=== PATIENT | male | born 1950 | race Caucasian/White ===

== ENCOUNTER 2017-10-06 12:37 | Observation (INO) | payer OTHER ==
[~2017-10-06] VITALS: Ht 180.3 cm; Wt 134.6 kg
[~2017-10-06 12:37] MED LIST: AMB10 PO; BUPR-83 PO; CLX20 PO; ENOX40IN SQ; GLC500 PO; HYDR-4383 PO; INSDGI SC; INSUINJ17 SC; LISI-461 PO; MULTIVITAMIN/IRON PO; OXYC-57 PO; OXYSR20 PO; TERA1CAP63 PO
--- NOTE | 2017-10-06 13:23 | DIAGNOSTIC IMAGING REPORT ---
CHEST ONE VIEW PORTABLE CLINICAL HISTORY: Atypical chest pain COMPARISON STUDY: 09/03/2011. FINDINGS: The heart is at the upper limits of normal in size. There is no failure. Linear left basilar opacities likely represent subsegmental atelectatic change. There is no lobar consolidation. Hazy increased density lung bases is felt to be secondary to overlying chest wall soft tissue.[ IMPRESSION: 1. Linear left basilar opacities, likely representing subsegmental atelectasis Electronically signed by: Ugo Ibrahim M.D. 10/06/2017 1:22 PM Dictated Date/Time: 10/06/2017 1:21 PM
[2017-10-06 13:42] LABS: HEMATOCRIT 43.7 % (42-52); MEAN CELL VOLUME 92.6 fL (80-100); MEAN CORPUSCULAR HEMOGLOBIN 31.8 pg (25-34); MEAN CORPUSCULAR HGB CONC 34.3 g/dl (32-36); PLATELET COUNT 216 K/uL (130-400); RED BLOOD COUNT 4.72 M/uL (4.7-6.1); WHITE BLOOD COUNT 10.05 K/uL (4.8-10.8)
[2017-10-06 13:46] LABS: POINT OF CARE TROPONIN I < 0.030 ng/ml (0-0.045)
[2017-10-06 13:55] LABS: PROTHROMBIN TIME (PATIENT) 10.7 SECONDS (9.0-12.0)
[2017-10-06 14:05] LABS: CALCIUM 8.7 mg/dl (8.5-10.1); CREATININE 0.67 mg/dl (0.60-1.40)
[2017-10-06 14:10] LABS: CKMB/CK RATIO 1.7 (0-3.0)
[2017-10-06] MEDS ORDERED: METF-841 PO (14:22)
[2017-10-06] MEDS ORDERED: CLX40 PO (14:23)
[2017-10-06] MEDS ORDERED: OPTIRAY 320 IV PRN (14:45)
--- NOTE | 2017-10-06 14:54 | EMERGENCY ROOM VISIT NOTE ---
History Report prepared by Karla: Pancho Kirkpatrick Under the Supervision of: Dr. Tyler Almaraz M.D. First contact with patient: 13:03 Chief Complaint: CHEST PAIN Stated Complaint: CHEST PAIN History of Present Illness The patient is a 67 year old male who presents to the Emergency Room with complaints of constant chest pain that started this morning. He rates his pain as a 4/10 in severity and describes the sensation as sharp. The patient states that he reached down to put on his sweatpants, when he experienced chest pain that "brought me to my knees". He reports that two or three days ago his whole left arm ached for about 20 minutes then went away. The patient also reports that he has been short of breath. The patient states that he normally has mild chest pain, which admits he has been prescribed Nitroglycerin for. He admits to a history of Diabetes and broken ribs 5 years ago. The patient states that he was on blood thinners a while ago due to his history of blood clots in his legs. The patient denies a history of heart problems. He admits to drinking occasionally. The patient denies dyspnea, injury, abdominal pain, nausea, vomiting, syncope, blood or black stool, pain or swelling in legs, and falling. Source of History: patient Onset: last night Position: chest Symptom Intensity: 4/10 Quality: sharp Timing: constant Modifying Factors (Relieving): other (Nitro) Associated Symptoms: + SOB, No LOC, No nausea, No vomiting, No abdominal pain Review of Systems See HPI for pertinent positives & negatives. A total of 10 systems reviewed and were otherwise negative. Past Medical & Surgical Medical Problems: (1) Benign prostatic hypertrophy without outflow obstruction (2) Deep venous thrombosis of lower extremity (3) Depression (4) Gastroesophageal reflux disease (5) Localized, primary osteoarthritis of the lower leg (6) Morbid obesity (7) Peripheral vascular disease Old medical records were reviewed. Nurse's notes were reviewed and I agree with. Family History Patient reports no known family medical history. Social History Smoking Status: Never Smoker Alcohol Use: occasionally Drug Use: none Occupation Status: retired Current/Historical Medications Scheduled Citalopram (Citalopram Hydrobromide), 40 MG PO DAILY Finasteride (Proscar), 5 MG PO DAILY Fluoxetine (Prozac), 10 MG PO DAILY Gabapentin (Neurontin), 600 MG PO TID Insulin Glargine (Lantus), 45 UNITS SC QPM Metformin HCl (Metformin HCl ER), 1,000 MG PO BID Multivitamin (Multivitamin), 1 TAB PO DAILY Simvastatin (Zocor), 40 MG PO QPM Terazosin Hcl (Hytrin), 5 MG PO HS Trazodone Hcl (Trazodone), 50 MG PO HS Scheduled PRN Zolpidem Tartrate (Ambien), 10 MG PO HS PRN for Sleep Miscellaneous Medications Insulin Aspart (Novolog) Allergies Coded Allergies: No Known Allergies (Unverified , 10/06/17) Physical Exam Vital Signs Date Time Temp Pulse Resp B/P (MAP) Pulse Ox O2 Delivery O2 Flow Rate FiO2 10/06/17 15:26 68 18 146/75 95 10/06/17 13:37 97 Room Air 10/06/17 13:37 84 10/06/17 13:34 97 Room Air 10/06/17 13:34 84 18 148/97 97 Room Air 10/06/17 13:33 98 Room Air 10/06/17 12:41 36.7 86 20 177/85 94 Physical Exam General: Non-ill appearing older male in no acute distress. HEENT: Normal cephalic atraumatic. Pupils are equal round and reactive to light. Extraocular movements are intact. Oropharynx is pink with moist mucous membranes. No swelling of the mouth lips or tongue. Neck: Supple with a midline trachea. No meningeal signs or stiffness, no JVD or bruits. No Stridor. Chest: Clear to auscultation bilaterally. No wheezes or rhonchi. No increased work of breathing. Significantly tender to palpation on the left lateral anterior ribs. Heart: regular rate and rhythm. Abdomen: Soft nontender, nondistended without rebound guarding or rigidity. Extremities: No cyanosis clubbing or edema. No calf tenderness or assymetry Spine/Back. Non tender to palpation. No CVA tenderness Skin: Good turgor without rashes. Neurologic exam: Cranial nerves two through 12 are intact. Motor and sensation are intact and symmetrical throughout. Medical Decision & Procedures ER Provider Diagnostic Interpretation: Radiology results as stated below per my review and radiologist interpretation: CHEST ONE VIEW PORTABLE CLINICAL HISTORY: Atypical chest pain COMPARISON STUDY: 09/03/2011. FINDINGS: The heart is at the upper limits of normal in size. There is no failure. Linear left basilar opacities likely represent subsegmental atelectatic change. There is no lobar consolidation. Hazy increased density lung bases is felt to be secondary to overlying chest wall soft tissue.[ IMPRESSION: 1. Linear left basilar opacities, likely representing subsegmental atelectasis Electronically signed by: Ugo Ibrahim M.D. 10/06/2017 1:22 PM Dictated Date/Time: 10/06/2017 1:21 PM CHEST CTA for PULMONARY ARTERIES CT DOSE: 785.22 mGy.cm HISTORY: Left-sided chest pain. TECHNIQUE: Multiaxial CT images of the chest were performed following the intravenous administration of contrast to evaluate the pulmonary arteries. Maximal intensity projection images were also obtained. A dose lowering technique was utilized adhering to the principles of ALARA. COMPARISON STUDY: Chest 10/06/2017. FINDINGS: Normal caliber thoracic aorta with no evidence for dissection. The heart is normal in size. No pleural or pericardial effusions. No filling defects within the pulmonary arteries to suggest pulmonary embolus. No mediastinal or hilar lymphadenopathy. The the visualized liver, spleen, and adrenal glands are unremarkable. Multiple old nonunited left posterior rib fractures. No acute rib fractures. The central airways are patent. No pneumothorax. No focal lung consolidations to suggest pneumonia. IMPRESSION: 1. No evidence for pulmonary embolus. 2. Multiple old left-sided rib fractures. No acute rib fractures. Electronically signed by: Hima Razo M.D. 10/06/2017 3:45 PM Dictated Date/Time: 10/06/2017 3:36 PM Laboratory Results 10/06/17 13:20 10/06/17 13:20 Test 10/06/17 13:20 10/06/17 13:26 10/06/17 13:56 10/06/17 16:13 Red Blood Count 4.72 M/uL (4.7-6.1) Mean Corpuscular Volume 92.6 fL (80-100) Mean Corpuscular Hemoglobin 31.8 pg (25-34) Mean Corpuscular Hemoglobin Concent 34.3 g/dl (32-36) RDW Standard Deviation 45.2 fL (36.4-46.3) RDW Coefficient of Variation 13.3 % (11.5-14.5) Mean Platelet Volume 10.0 fL (7.4-10.4) Prothrombin Time 10.7 SECONDS (9.0-12.0) Prothromb Time International Ratio 1.0 (0.9-1.1) Activated Partial Thromboplast Time 25.1 SECONDS (21.0-31.0) Partial Thromboplastin Ratio 1.0 Anion Gap 3.0 mmol/L (3-11) Est Creatinine Clear Calc Drug Dose 143.0 ml/min Estimated GFR () 113.6 Estimated GFR (Non- 98.0 BUN/Creatinine Ratio 26.0 (10-20) Calcium Level 8.7 mg/dl (8.5-10.1) Total Bilirubin 0.5 mg/dl (0.2-1) Aspartate Amino Transf (AST/SGOT) 24 U/L (15-37) Alanine Aminotransferase (ALT/SGPT) 31 U/L (12-78) Alkaline Phosphatase 89 U/L (45-117) Total Creatine Kinase 178 U/L (39-308) Creatine Kinase MB 3.1 ng/ml (0.5-3.6) Creatine Kinase MB Ratio 1.7 (0-3.0) Total Protein 7.1 gm/dl (6.4-8.2) Albumin 3.5 gm/dl (3.4-5.0) Globulin 3.6 gm/dl (2.5-4.0) Albumin/Globulin Ratio 1.0 (0.9-2) Bedside D-Dimer > 450 ng/mlFEU (0-450) Bedside Glucose 86 mg/dl (70-99) Bedside Troponin I < 0.030 ng/ml (0-0.045) Laboratory studies as stated above per my review. ECG Indication: chest pain Rate (beats per minute): 85 Rhythm: normal sinus Findings: 1st degree AV block, other (non specific T wave abnormality) Comparison ECG Date: 07/08/12 Change: T wave flattening in V5 and V6 REPEAT EKG 10/06/17 Normal sinus rhythm with a rate of 64. Lateral T wave abnormality which is new compared to original EKG. ED Course 1304: Past medical records reviewed. The patient was evaluated in room B12A, and a complete history and physical examination were performed. 1438: I reevaluated the patient and he is doing well. He is heading over to CT. 1603: I reevaluated and updated him on his results. 165: I reevaluated the patient and he is resting comfortably. I updated him on his results and discussed his treatment plan. He agrees to the plan and will be further evaluated. 170: I discussed the patient's case with Dr. Arredondo, [facility] Hospitalist. He understands the patient's condition and agrees to accept the patient. The patient will be further evaluated. Medical Decision Differentials include, but are not limited to; acute coronary syndrome, pneumothorax, PE, CHF, and musculoskeletal. This patient comes in as described above. He was placed room B12. He is having left-sided chest pain off-and-on is worse when he bends over . He has had no trauma. On exam, he is exquisitely tender palpation in 1 focal area. He appears in no distress. EKG was obtained does not show any definite acute ischemic changes but there is definitely some T-wave flattening compared to the old EKG. I did repeat as second EKG at 3 hours and the T waves look inverted now however the patient is asymptomatic. His troponin was negative 2 with approximately three-hour window in between. Chest x-ray does not show any definite acute findings. He has no acute electrolyte or metabolic abnormalities. He is resting comfortably. His d-dimer was elevated and light of this, I did do a chest CT. There is no evidence of PE. Although the patient 's symptoms to point most likely to musculoskeletal, he does have some EKG changes compared to old and I do think he needs further cardiac evaluation and workup. I have consulted Dr. Arredondo to see the patient in the emergency department. The patient has taken aspirin at home prior to arrival. Medication Reconcilliation Current Medication List: was personally reviewed by me Blood Pressure Screening Patient's blood pressure: Elevated blood pressure Blood pressure disposition: Referred to PCP Consults Time Called: 1702 Consulting Physician: Dr. Arredondo [facility] Hospitalist Returned Call: 1702 I discussed the patient's case with Dr. Arredondo, [facility] Hospitalist. He understands the patient's condition and agrees to accept the patient. The patient will be further evaluated. Impression Primary Impression: Left sided chest pain Additional Impression: ECG abnormality Scribe Attestation The scribe's documentation has been prepared under my direction and personally reviewed by me in its entirety. I confirm that the note above accurately reflects all work, treatment, procedures, and medical decision making performed by me. Departure Information Dispostion Being Evaluated By Hospitalist Referrals Deanna Stewart M.D. (PCP) Patient Instructions [facility] Problem Qualifiers
--- NOTE | 2017-10-06 15:46 | DIAGNOSTIC IMAGING REPORT ---
CHEST CTA for PULMONARY ARTERIES CT DOSE: 785.22 mGy.cm HISTORY: Left-sided chest pain. TECHNIQUE: Multiaxial CT images of the chest were performed following the intravenous administration of contrast to evaluate the pulmonary arteries. Maximal intensity projection images were also obtained. A dose lowering technique was utilized adhering to the principles of ALARA. COMPARISON STUDY: Chest 10/06/2017. FINDINGS: Normal caliber thoracic aorta with no evidence for dissection. The heart is normal in size. No pleural or pericardial effusions. No filling defects within the pulmonary arteries to suggest pulmonary embolus. No mediastinal or hilar lymphadenopathy. The the visualized liver, spleen, and adrenal glands are unremarkable. Multiple old nonunited left posterior rib fractures. No acute rib fractures. The central airways are patent. No pneumothorax. No focal lung consolidations to suggest pneumonia. IMPRESSION: 1. No evidence for pulmonary embolus. 2. Multiple old left-sided rib fractures. No acute rib fractures. Electronically signed by: Hima Razo M.D. 10/06/2017 3:45 PM Dictated Date/Time: 10/06/2017 3:36 PM
[2017-10-06] MEDS ORDERED: ASPIRIN 81 MG CHEW PO STA (17:05)
[2017-10-06] MEDS ORDERED: ACETAMINOPHEN 325 MG TAB PO PRN (17:15)
[2017-10-06] MEDS ORDERED: NITROGLYCERIN 0.4 MG SL PER TAB CHARGE SL PRN (17:15)
[2017-10-06] MEDS ORDERED: MoRPHine SULFATE 2 MG/ML CARP IV PRN (17:15)
[2017-10-06] MEDS ORDERED: ONDANSETRON INJ 2 MG/ML 2 ML VIAL IV PRN (17:15)
[2017-10-06] MEDS ORDERED: ALUMINUM/MAGNESIUM/SIMETH (MAALOX MAX) 30 ML UDC PO PRN (17:15)
[2017-10-06] MEDS ORDERED: POLYETHYLENE (MIRALAX) 17 GM PACK PO PRN (17:15)
[2017-10-06] MEDS ORDERED: LORAZEPAM 0.5 MG TAB PO PRN (17:30)
[2017-10-06] MEDS ORDERED: ZOLPIDEM TARTRATE 10 MG TAB PO PRN (17:30)
[2017-10-06] MEDS ORDERED: OXYCODONE HCL IR 5 MG TAB (IMMEDIATE RELEASE) PO PRN (17:30)
[2017-10-06 17:38] VITALS: O2SAT 94
--- NOTE | 2017-10-06 17:44 | History and Physical ---
History & Physical Date & Time of Service: Oct 06, 2017 at 17:32 Chief Complaint: Chest Pain Primary Care Physician: No Doctor, Assigned History of Present Illness 67-year-old obese diabetic male with his last name griffin najera, who presents with sharp left-sided chest pain since this morning. This pain has been persistent it is positional it is reproducible it is pleuritic. The confounding variable is the patient's had 2 EKGs in the ER the first with flattened lateral T waves and then the second hours later with T-wave inversions laterally. The patient has no known coronary disease but did have a stress test recently in the [facility] system more than a year ago which was negative. He has a history of DVT in the past and elevated d-dimer prompted a CT angiogram which did not show any pulmonary embolism or pleural/pericardial effusion, pulmonary parenchymal irritation or rib fractures. Most recently the patient has lost 33 pounds reduce his hemoglobin A1c from 10.5 -8.3 Given the fact he is diabetic with dynamic EKG changes, although his chest pain seems musculoskeletal, he'll be kept for observation and cardiology opinion Past Medical/Surgical History Medical Problems: (1) Benign prostatic hypertrophy without outflow obstruction Status: Chronic (2) Deep venous thrombosis of lower extremity Status: Resolved (3) Depression Status: Chronic (4) Gastroesophageal reflux disease Status: Chronic (5) Localized, primary osteoarthritis of the lower leg Status: Chronic (6) Morbid obesity Status: Chronic (7) Peripheral vascular disease Status: Chronic Family History Patient reports no known family medical history. Social History Smoking Status: Never Smoker Drug Use: none Occupational Status: retired Immunizations History of Influenza Vaccine: Yes History of Tetanus Vaccine?: Yes History of Pneumococcal: Yes History of Hepatitis B Vaccine: No Allergies Coded Allergies: No Known Allergies (Unverified , 10/06/17) Home Medications Scheduled Citalopram (Citalopram Hydrobromide), 40 MG PO DAILY Finasteride (Proscar), 5 MG PO DAILY Fluoxetine (Prozac), 10 MG PO DAILY Gabapentin (Neurontin), 600 MG PO TID Insulin Glargine (Lantus), 45 UNITS SC QPM Metformin HCl (Metformin HCl ER), 1,000 MG PO BID Multivitamin (Multivitamin), 1 TAB PO DAILY Simvastatin (Zocor), 40 MG PO QPM Terazosin Hcl (Hytrin), 5 MG PO HS Trazodone Hcl (Trazodone), 50 MG PO HS Scheduled PRN Zolpidem Tartrate (Ambien), 10 MG PO HS PRN for Sleep Miscellaneous Medications Insulin Aspart (Novolog) Review of Systems ROS: well nourished well developed is obese with a BMI of 40 this limits his functional ability No double vision blurry vision No problems with speech or swallowing No palpitations, sharp chest pain but no chest pressure No Wheezing or breathing issues however pain is pleuritic No abdominal pain nausea vomiting diarrhea changes in appetite or weight No burning urine urine frequency or changes in color and marked nocturia and difficulty urinating at night No focal joint pain or muscle pain, significant neuropathic pain to his 8 No skin rashes or oral lesions No unusual bruising or bleeding No focused back pain or numbness or loss of strength No changes in memory or confusion Physical Exam Vital Signs Date Time Temp Pulse Resp B/P (MAP) Pulse Ox O2 Delivery O2 Flow Rate FiO2 10/06/17 15:26 68 18 146/75 95 10/06/17 13:37 97 Room Air 10/06/17 13:37 84 10/06/17 13:34 97 Room Air 10/06/17 13:34 84 18 148/97 97 Room Air 10/06/17 13:33 98 Room Air 10/06/17 12:41 36.7 86 20 177/85 94 General Appearance: WD/WN, + mild distress Head: normocephalic, atraumatic Eyes: PERRL, EOMI Neck: supple, no JVD Respiratory/Chest: chest non-tender, lungs clear, normal breath sounds, no accessory muscle use, + pertinent finding (pain to his left anterior chest and deep inspiration just below the fold of his breast) Cardiovascular: regular rate, rhythm, no murmur Abdomen/GI: normal bowel sounds, non tender, no organomegaly Extremities/Musculoskelatal: no pedal edema, normal range of motion, + pertinent finding (neuropathy to his feet) Neurologic/Psych: alert, oriented x 3 Skin: normal color, warm/dry, no rash, + pertinent finding (skin exam does not show any signs of shingles) Diagnostics Laboratory Results Results Past 24 Hours Test 10/06/17 13:20 10/06/17 13:26 10/06/17 13:56 10/06/17 16:13 Range/Units White Blood Count 10.05 4.8-10.8 K/uL Red Blood Count 4.72 4.7-6.1 M/uL Hemoglobin 15.0 14.0-18.0 g/dL Hematocrit 43.7 42-52 % Mean Corpuscular Volume 92.6 80-100 fL Mean Corpuscular Hemoglobin 31.8 25-34 pg Mean Corpuscular Hemoglobin Concent 34.3 32-36 g/dl RDW Standard Deviation 45.2 36.4-46.3 fL RDW Coefficient of Variation 13.3 11.5-14.5 % Platelet Count 216 130-400 K/uL Mean Platelet Volume 10.0 7.4-10.4 fL Prothrombin Time 10.7 9.0-12.0 SECONDS Prothromb Time International Ratio 1.0 0.9-1.1 Activated Partial Thromboplast Time 25.1 21.0-31.0 SECONDS Partial Thromboplastin Ratio 1.0 Sodium Level 139 136-145 mmol/L Potassium Level 4.0 3.5-5.1 mmol/L Chloride Level 104 98-107 mmol/L Carbon Dioxide Level 32 21-32 mmol/L Anion Gap 3.0 3-11 mmol/L Blood Urea Nitrogen 17 7-18 mg/dl Creatinine 0.67 0.60-1.40 mg/dl Est Creatinine Clear Calc Drug Dose 143.0 ml/min Estimated GFR () 113.6 Estimated GFR (Non- 98.0 BUN/Creatinine Ratio 26.0 10-20 Random Glucose 83 70-99 mg/dl Calcium Level 8.7 8.5-10.1 mg/dl Total Bilirubin 0.5 0.2-1 mg/dl Aspartate Amino Transf (AST/SGOT) 24 15-37 U/L Alanine Aminotransferase (ALT/SGPT) 31 12-78 U/L Alkaline Phosphatase 89 45-117 U/L Total Creatine Kinase 178 39-308 U/L Creatine Kinase MB 3.1 0.5-3.6 ng/ml Creatine Kinase MB Ratio 1.7 0-3.0 Total Protein 7.1 6.4-8.2 gm/dl Albumin 3.5 3.4-5.0 gm/dl Globulin 3.6 2.5-4.0 gm/dl Albumin/Globulin Ratio 1.0 0.9-2 Bedside D-Dimer > 450 0-450 ng/mlFEU Bedside Troponin I < 0.030 < 0.030 0-0.045 ng/ml Bedside Glucose 86 70-99 mg/dl Diagnostic Radiology Normal troponin is noted CT angiogram negative for PEs or other intrathoracic abnormalities CXR normal other (sinus rhythm with lateral T-wave inversions) Impression Assessment and Plan 67-year-old diabetic male here with what appears to be mechanical chest pain however having abnormal EKG This patient has risk factors of diabetes dyslipidemia distant smoking use and now an abnormal EKG. The patient will be kept in our facility for severe troponins echocardiogram and cardiac evaluation will attempt to get his stress test from in the last year or 2 at the [facility] system sent to our facility he 'll be given aspirin daily. Diabetes, patient of one half of usual Lantus dose this evening and continue with sliding scale this is as he is nothing by mouth in the morning except meds for possible stress test. The patient will have his metformin held due to the CT angiogram His depression and insomnia the patient continue Prozac trazodone and Ambien BPH he'll continue Hytrin and Proscar [facility] to see a urologist DVD preventions is heparin VTE Prophylaxis VTE Risk Assessment Done? Y/N: Yes Risk Level: Moderate
[2017-10-06 18:20] VITALS: BP 138/81; TEMP 36.4; BMI 40.0
[2017-10-06 18:30] VITALS: BP 138/81; PULSE 62; TEMP 36.4; O2SAT 91
[2017-10-06] MEDS ORDERED: IV FLUIDS COMPLETED PRN (18:30)
[2017-10-06] MEDS ORDERED: GLUCOSE 40% GEL 15 GM TUBE PO PRN (18:45)
[2017-10-06] MEDS ORDERED: GLUCOSE 10 TABS/TUBE PO PRN (18:45)
[2017-10-06] MEDS ORDERED: GLUCAGON FOR INJ 1 MG VIAL SQ PRN (18:45)
[2017-10-06] MEDS ORDERED: DEXTROSE 50% 50 ML SYR IV PRN (18:45)
[2017-10-06 19:11] VITALS: BP 147/86; PULSE 67; TEMP 36.5; O2SAT 95
[2017-10-06] MEDS: GABAPENTIN 600 MG TAB PO SCH (20:28)
[2017-10-06] MEDS: INSULIN ASPART 100 UNITS/ML 3 ML PEN SC SCH (20:38)
[2017-10-06] MEDS: HEPARIN SOD 5000 UNIT/0.5 ML CARP SQ SCH (20:39)
[2017-10-06] MEDS ORDERED: TRAZODONE HCL 50 MG TAB PO SCH (21:00)
[2017-10-06] MEDS ORDERED: INSULIN GLARGINE SOLOSTAR 100 UNITS/ML 3 ML PEN SC SCH ×2 (21:00)
[2017-10-06] MEDS ORDERED: SIMVASTATIN 40 MG TAB PO SCH (21:00)
[2017-10-06 23:50] VITALS: BP 113/70; PULSE 75; TEMP 36.8; O2SAT 92
[2017-10-07 05:02] VITALS: BP 141/72; PULSE 60; TEMP 36.6; O2SAT 94
[2017-10-07 07:23] LABS: MEAN CORPUSCULAR HEMOGLOBIN 31.5 pg (25-34); MEAN CORPUSCULAR HGB CONC 33.9 g/dl (32-36); MEAN PLATELET VOLUME 10.1 fL (7.4-10.4); PLATELET COUNT 193 K/uL (130-400); RED BLOOD COUNT 4.41 M/uL (4.7-6.1); WHITE BLOOD COUNT 6.77 K/uL (4.8-10.8)
[2017-10-07 07:39] VITALS: BP 136/70; PULSE 83; TEMP 36.3; O2SAT 92
[2017-10-07 07:45] LABS: BUN/CREATININE RATIO 19.2 (10-20); CALCIUM 8.7 mg/dl (8.5-10.1); CREATININE 0.74 mg/dl (0.60-1.40); POTASSIUM 3.8 mmol/L (3.5-5.1)
[2017-10-07] MEDS: INSULIN ASPART 100 UNITS/ML 3 ML PEN SC SCH ×3 (07:55→12:12)
[2017-10-07] MEDS: HEPARIN SOD 5000 UNIT/0.5 ML CARP SQ SCH (07:56)
[2017-10-07] MEDS: GABAPENTIN 600 MG TAB PO SCH ×2 (07:57→14:15)
[2017-10-07 08:43] LABS: ESTIMATED AVERAGE GLUCOSE 203 mg/dl; HA1C FLAG Normal (Normal)
[2017-10-07] MEDS ORDERED: CITALOPRAM 40 MG TAB PO SCH (09:00)
[2017-10-07] MEDS ORDERED: MULTIVITAMIN TAB PO SCH (09:00)
[2017-10-07] MEDS ORDERED: FINASTERIDE 5 MG TAB PO SCH (09:00)
[2017-10-07] MEDS ORDERED: FLUOXETINE HCL 10 MG CAP PO SCH (09:00)
[2017-10-07] MEDS ORDERED: ASPIRIN 325 MG ECTAB PO SCH (09:00)
--- NOTE | 2017-10-07 09:02 | Cardiology Consultation ---
Cardiology Consultation Date of Consultation: Oct 07, 2017. Requesting Physician: Dr. Moraes Reason for Consultation: Chest pain, abnormal ECG Pt evaluation today including: conversation w/ patient, physical exam, lab review, review of studies, review of inpatient medication list, conversation w/ attending History of Present Illness This is a very pleasant 67-year-old gentleman who has a history of diabetes mellitus, and a long history of chest discomfort. By his history his chest discomfort has been evaluated in the past and has been present for many years. He described having a DVT for which he was on anticoagulation a number of years ago, but he does not recall having a pulmonary embolism. He also had a fall in a bathtub perhaps 4 or 5 years ago where he fractured 5 ribs on his left side and has had discomfort there which he relates to that. He presented here yesterday however with worsening of his chest discomfort. He describes a severe left sided chest discomfort which brought him to his knees, it was however preceded by about 2 days of intermittent chest discomfort. The discomfort is a sharp stabbing pain similar to what he experienced when he fractured his ribs. It only lasts a few seconds and then recurs sometime later. He has not had continuous chest discomfort. It is not exertional, however he does feel that with that he is little bit short of breath. Although I don't have records it sounds as though he had a catheterization 2-3 years ago, he was having chest discomfort and was sent to the [facility] in [place]. He recalls being told he had a shadow on his heart (which is sometimes a description for an abnormal stress test with imaging) and he recalls having a tube put up through his groin into his heart and I injected in his heart. He was told that everything was 100%, by which he interpreted he had no abnormality. He doesn't know specifics however. He is a smoker, his father had a heart attack as he recalls at age 83. Today he did not have any chest discomfort, however at the end of my interview with him and he reported he may have a little discomfort. Evaluation here has included a chest CT scan which is negative for pulmonary embolism, as well as serial cardiac enzymes which are negative for injury. His electrocardiogram however is a little bit abnormal, on admission he had some T wave flattening, by yesterday afternoon he had inferolateral T-wave inversion and this morning the changes are little bit less pronounced. A prior electrocardiogram 07/08/2012 did show inferolateral abnormalities but were less pronounced. Past Medical/Surgical History (1) Benign prostatic hypertrophy without outflow obstruction (2) Deep venous thrombosis of lower extremity (3) Depression (4) Gastroesophageal reflux disease (5) Morbid obesity Family History Patient reports no known family medical history. Social History Smoking Status: Current Every Day Smoker History of Alcohol Use: No Review of Systems Constitutional: No fever, No weight loss, No weakness Respiratory: No cough, No wheezing, No shortness of breath, No dyspnea on exertion Cardiac: + see HPI, + chest pain, No orthopnea, No PND, No edema, No palpitations Abdomen: No pain, No nausea, No vomiting, No diarrhea, No GI bleeding Male : No urinary frequency, No nocturia more than once/night, No slowing stream, No sexual dysfunction Neurologic: No paralysis, No weakness, No numbness/tingling, No balance problems Heme: No abnormal bleeding/bruising, No clotting problems Endo: No fatigue Skin: No problem reported All Other Systems: Reviewed and Negative Allergies Coded Allergies: No Known Allergies (Unverified , 10/06/17) Medications Current Inpatient Medications Medications (Trade) Dose Ordered Sig/Jimbo Route Start Time Stop Time Status Last Admin Dose Admin Ioversol (Optiray 320) 100 ml UD PRN IV 10/06/17 14:45 10/10/17 14:44 Finasteride (Proscar Tab) 5 mg DAILY PO 10/07/17 09:00 11/06/17 08:59 10/07/17 07:57 5 MG Fluoxetine HCl (Prozac Cap) 10 mg DAILY PO 10/07/17 09:00 11/06/17 08:59 10/07/17 07:57 10 MG Gabapentin (Neurontin Tab) 600 mg TID PO 10/06/17 21:00 11/05/17 20:59 10/07/17 07:57 600 MG Multivitamins (Multivitamin Tab) 1 tab DAILY PO 10/07/17 09:00 11/06/17 08:59 10/07/17 07:57 1 TAB Simvastatin (Zocor Tab) 40 mg QPM PO 10/06/17 21:00 11/05/17 20:59 10/06/17 20:27 40 MG Terazosin HCl (Hytrin Cap) 5 mg HS PO 10/06/17 21:00 11/05/17 20:59 10/06/17 20:27 5 MG Trazodone HCl (Desyrel Tab) 50 mg HS PO 10/06/17 21:00 11/05/17 20:59 10/06/17 20:27 50 MG Aspirin (Ecotrin Tab) 325 mg QAM PO 10/07/17 09:00 11/06/17 08:59 10/07/17 07:57 325 MG Insulin Glargine (Lantus Solostar Pen) 45 units QPM SC 10/07/17 21:00 11/05/17 20:59 Heparin Sodium (Porcine) (Heparin Sq 5000 Unit/0.5ml) 5,000 unit Q12 SQ 10/06/17 21:00 11/05/17 20:59 Acetaminophen (Tylenol Tab) 650 mg Q4H PRN PO 10/06/17 17:15 11/05/17 17:14 Al Hydrox/Mg Hydrox/Simethicone (Maalox Max Susp) 15 ml Q4H PRN PO 10/06/17 17:15 11/05/17 17:14 Ondansetron HCl (Zofran Inj) 4 mg Q6H PRN IV 10/06/17 17:15 11/05/17 17:14 Nitroglycerin (Nitrostat Tab) 0.4 mg UD PRN SL 10/06/17 17:15 11/05/17 17:14 Morphine Sulfate (MoRPHine SULFATE INJ) 2 mg Q30M PRN IV 10/06/17 17:15 10/20/17 17:14 Polyethylene (Miralax Powder Packet) 17 gm DAILY PRN PO 10/06/17 17:15 11/05/17 17:14 Insulin Aspart (novoLOG ASPART) SLIDING SCALE PARAMETER ACHS SC 10/06/17 21:00 11/05/17 20:59 Zolpidem Tartrate (Ambien Tab) 10 mg HS PRN PO 10/06/17 17:30 11/05/17 17:29 10/06/17 23:22 10 MG Lorazepam (Ativan Tab) 0.5 mg Q6H PRN PO 10/06/17 17:30 11/05/17 17:29 Oxycodone HCl (Roxicodone Immediate Rel Tab) 10 mg Q6H PRN PO 10/06/17 17:30 10/20/17 17:29 10/06/17 18:53 10 MG Miscellaneous (Iv Fluids Completed) 1 ea PRN PRN N/A 10/06/17 18:30 10/06/18 18:29 Glucose (Glucose 40% Gel) 15-30 GRAMS 15 GRAMS... UD PRN PO 10/06/17 18:45 11/05/17 18:44 Glucose (Glucose Chew Tab) 4-8 Tablets 4 Tabl... UD PRN PO 10/06/17 18:45 11/05/17 18:44 Dextrose (Dextrose 50% 50ML Syringe) 25-50ML OF 50% DW IV FOR... UD PRN IV 10/06/17 18:45 11/05/17 18:44 Glucagon (Glucagon Inj) 1 mg UD PRN SQ 10/06/17 18:45 11/05/17 18:44 Physical Exam Vital Signs Past 12 Hours Date Time Temp Pulse Resp B/P (MAP) Pulse Ox O2 Delivery O2 Flow Rate FiO2 10/07/17 07:45 Room Air 10/07/17 07:39 36.3 83 18 136/70 (92) 92 Room Air 10/07/17 05:02 36.6 60 16 141/72 (95) 94 Nasal Cannula 10/07/17 04:00 Room Air 10/07/17 00:00 Room Air 10/06/17 23:50 36.8 75 18 113/70 (84) 92 Room Air Constitutional: General Apperance: overweight Level of Distress: NAD Psychiatric: Mental Status: active & alert Head: normocephalic Eyes: EOM: EOMI ENMT: normal ENT inspection, hearing grossly normal Neck: supple, no masses Lungs: Respiratory effort: no dyspnea, good air movement Auscultation: breath sounds normal, no wheezing Cardiovascular: Heart Auscultation: RRR, no murmurs, no rubs, no gallops Peripheral Pulses: Bruits: none appreciated Abdomen: Bowel Sounds: normal Inspection & Palpation: soft, no tenderness, guarding & rebound, no masses Musculoskeletal: normal strength (5/5 throughout) Extremities: edema (trace bilateral peripheral edema) Neurologic: Cranial Nerves: grossly intact Sensation: grossly intact Data Laboratory Results: Last 24 Hours Test 10/06/17 13:20 10/06/17 13:26 10/06/17 13:56 10/06/17 16:13 White Blood Count 10.05 K/uL Red Blood Count 4.72 M/uL Hemoglobin 15.0 g/dL Hematocrit 43.7 % Mean Corpuscular Volume 92.6 fL Mean Corpuscular Hemoglobin 31.8 pg Mean Corpuscular Hemoglobin Concent 34.3 g/dl RDW Standard Deviation 45.2 fL RDW Coefficient of Variation 13.3 % Platelet Count 216 K/uL Mean Platelet Volume 10.0 fL Prothrombin Time 10.7 SECONDS Prothromb Time International Ratio 1.0 Activated Partial Thromboplast Time 25.1 SECONDS Partial Thromboplastin Ratio 1.0 Sodium Level 139 mmol/L Potassium Level 4.0 mmol/L Chloride Level 104 mmol/L Carbon Dioxide Level 32 mmol/L Anion Gap 3.0 mmol/L Blood Urea Nitrogen 17 mg/dl Creatinine 0.67 mg/dl Est Creatinine Clear Calc Drug Dose 143.0 ml/min Estimated GFR () 113.6 Estimated GFR (Non- 98.0 BUN/Creatinine Ratio 26.0 Random Glucose 83 mg/dl Estimated Average Glucose 203 mg/dl Hemoglobin A1c 8.7 % Calcium Level 8.7 mg/dl Total Bilirubin 0.5 mg/dl Aspartate Amino Transf (AST/SGOT) 24 U/L Alanine Aminotransferase (ALT/SGPT) 31 U/L Alkaline Phosphatase 89 U/L Total Creatine Kinase 178 U/L Creatine Kinase MB 3.1 ng/ml Creatine Kinase MB Ratio 1.7 Total Protein 7.1 gm/dl Albumin 3.5 gm/dl Globulin 3.6 gm/dl Albumin/Globulin Ratio 1.0 Bedside D-Dimer > 450 ng/mlFEU Bedside Troponin I < 0.030 ng/ml < 0.030 ng/ml Bedside Glucose 86 mg/dl Test 10/06/17 20:35 10/06/17 23:00 10/07/17 07:08 10/07/17 07:22 Bedside Glucose 157 mg/dl 114 mg/dl Troponin I < 0.015 ng/ml < 0.015 ng/ml White Blood Count 6.77 K/uL Red Blood Count 4.41 M/uL Hemoglobin 13.9 g/dL Hematocrit 41.0 % Mean Corpuscular Volume 93.0 fL Mean Corpuscular Hemoglobin 31.5 pg Mean Corpuscular Hemoglobin Concent 33.9 g/dl RDW Standard Deviation 44.2 fL RDW Coefficient of Variation 13.1 % Platelet Count 193 K/uL Mean Platelet Volume 10.1 fL Sodium Level 140 mmol/L Potassium Level 3.8 mmol/L Chloride Level 102 mmol/L Carbon Dioxide Level 33 mmol/L Anion Gap 6.0 mmol/L Blood Urea Nitrogen 14 mg/dl Creatinine 0.74 mg/dl Est Creatinine Clear Calc Drug Dose 131.9 ml/min Estimated GFR () 109.1 Estimated GFR (Non- 94.1 BUN/Creatinine Ratio 19.2 Random Glucose 113 mg/dl Calcium Level 8.7 mg/dl Magnesium Level 2.0 mg/dl Imaging: CT scan is negative for pulmonary embolism on admission, chest x-ray is unremarkable EKG: His initial electrocardiogram on 10/06/2017 at 12:41 PM shows sinus rhythm with a leftward axis, inferolateral T-wave flattening. A subsequent electrocardiogram at 1606 on the same day shows sinus rhythm with left anterior fascicular block and inferolateral T-wave inversion. Another electrocardiogram done this morning at 7:00 shows sinus rhythm with first-degree AV block, left axis deviation and inferolateral T abnormalities which are somewhat improved compared to yesterday. Telemetry reviewed: Sinus rhythm with first-degree AV block, no significant arrhythmia Assessment & Plan #1. Chest discomfort: I think it is unlikely that his discomfort represents ischemic heart disease. The description is very atypical for angina, he has had it for a long time and although it is intermittent he has had negative cardiac enzymes. He also had a possible catheterization several years ago (for which I don't have records) which he believes was clear of coronary artery disease. He does however have risk factors for coronary artery disease and he does have the electrocardiographic abnormalities and therefore I think we should not ignore this. I am going to schedule a stress echo, he believes he can walk on a treadmill. #2. Abnormal electrocardiogram: He does have worse T-wave abnormalities compared to prior electrocardiograms (although in June 2012 he did have inferolateral T-wave abnormalities but less pronounced), although the abnormalities are nonspecific they are worrisome and they are changing somewhat during this admission. He does not have pulmonary embolism based on CT scan this admission. He could have a cardiomyopathy or myocarditis, cardiomyopathy we can tell from echocardiography, a myocarditis may be more difficult but his symptoms are not classic for that. If his echocardiogram and a stress test are negative I would probably not pursue these T-wave abnormalities any further. Thank you for allowing me to participate in his care.
[2017-10-07] MEDS ORDERED: PERFLUTREN LIPID MICROSPHERE (DEFINITY) IV ONE (09:51)
[2017-10-07 11:51] VITALS: BP 156/88; PULSE 96; TEMP 36.4; O2SAT 91
[2017-10-07 14:55] VITALS: Ht 180.3 cm; Wt 134.6 kg
[2017-10-07 15:01] VITALS: BP 149/77; PULSE 91; TEMP 36.9; O2SAT 92
[2017-10-07] MEDS ORDERED: NPR500 PO (15:12)
[2017-10-07] MEDS ORDERED: ASPEC81 PO (15:12)
--- NOTE | 2017-10-07 15:17 | Discharge Instructions ---
Discharge Instructions Date of Service Oct 07, 2017. Admission Reason for Admission: Left Sided Chest Pain Discharge Discharge Diagnosis / Problem: left sided chest pain - stress test normal, likely muscle pain Discharge Goals Goal(s): Learn about illness, Diagnostic testing, Therapeutic intervention Activity Recommendations Activity Limitations: as noted below May resume normal activities as long as they don't make your left chest wall pain worse (examples - heavy lifting with the left arm, etc). . Instructions / Follow-Up Instructions / Follow-Up From Dr. Roberts - * your stress test was NORMAL * this means that we have a LOW suspicion that your chest pain was due to a heart problem * it is suspected your chest pain is due to muscle pain on the chest wall * this is best treated with anti-inflammatory pills * please take naprosyn 500mg twice daily for 7 days; take with food * this may also help your neck pain * stop the naprosyn after 7 days * do NOT take any other [id number] motrin, alleve, etc while on the naprosyn * once the naprosyn course is complete please start on a baby aspirin 81mg daily and take every day for prevention of heart disease * you will need a repeat blood test on Saturday, 10/08 or Saturday, 10/09 * if this blood test is normal you will be able to resume your metformin at that time * please HOLD the metformin until you have this blood test done * see your family doctor in 1 week for a follow-up visit Current Hospital Diet Patient's current hospital diet: Diabetes Type 2 Diet Discharge Diet Recommended Diet: Diabetes Type 2 Diet Procedures Procedures Performed: CAT scan of the lungs - no evidence of blood clots or pneumonia. Pending Studies Studies pending at discharge: no Laboratory Results Hemoglobin A1c Test 10/06/17 13:20 Range/Units Estimated Average Glucose 203 mg/dl Hemoglobin A1c 8.7 H 4.5-5.6 % Medical Emergencies . Who to Call and When: Medical Emergencies: If at any time you feel your situation is an emergency, please call 911 immediately. . Non-Emergent Contact Non-Emergency issues call your: Primary Care Provider Call Non-Emergent contact if: temperature is above 100.5, your pain is not controlled, your pain is worsening, your pain is unusual for you, your pain is concerning you, you have any medication questions . . "Provider Documentation" section prepared by Jeb Roberts. . VTE Core Measure Inpt VTE Proph given/why not?: Unfractionated heparin SQ
[2017-10-07 15:19] VITALS: BP 149/77; PULSE 91; TEMP 36.9; O2SAT 92
--- NOTE | 2017-10-07 16:31 | EXERCISE STRESS ECHO ---
*NOTICE TO RECEIVING LIBERTARIAN AGENCY This information is strictly Confidential and protected under [place] law. [place] law prohibits you from making any further disclosure of this information unless further disclosure is expressly permitted by the written consent of the person to whom it pertains or is authorized by law. A general authorization for the release of medical or other information is not sufficient for this purpose. Hospital accepts no responsibility if the information is made available to any other person, INCLUDING THE PATIENT. Interpretation Summary * Name: SUSANNE RODRIGUEZ Study Date: 10/07/2017 08:46 AM BP: 92/58 mmHg * Patient Location: [facility]\S\N283\[id number]\1 HR: 87 * : 1950 (M/d/yy) Gender: Male Height: 70 in * Age: 67 yrs Ethnicity: [place] Weight: 296 lb * Ordering Physician: Hernando Pastor * Referring Physician: Self, Referred * Performed By: Sheryl Hamilton RDCS * * Reason For Study: CHEST PAIN * BSA: 2.5 m2 * -- Conclusions -- * - Technically difficult study - * 1. Exercise stress echo negative for high risk ischemia. * 2. Inferior hypokinesis present on rest and stress images. * 3. No exercise induced ECG changes. Reduced functional capacity. Exercised 2:21 min, achieving 4.6 METS and 86% MPHR. * 4. Exercise induced shortness of breath but no chest pain. Normal hemodynamic response to exercise. * 5. Resting LVEF 50-55%. Mildly dilated RV, normal RV function. Grade I diastolic dysfunction. No significant valvular pathology. * 6. No prior studies for comparison. Procedure Details * ECHOEX, CPT #65454 * A contrast injection of Definity was performed to improve assessment of LV function. * Contrast was injected into an intravenous site in the right arm. * One vial of Definity ultrasound contrast was diluted in normal saline to a total volume of 10 ml. A total of '4' ml of solution was administered during imaging. * Lot # [id number] of Definity utilized for procedure. * Expiration date NOV 04. * The attending nurse who injected the contrast agent was HEBERT ABARCA RN. Left Ventricle * The left ventricle is grossly normal size. * There is normal left ventricular wall thickness. * Ejection Fraction = 50-55%. * There is severe inferior wall hypokinesis. * The left ventricular ejection fraction increases normally with stress. The left ventricular end-systolic cavity size reduces post-stress (normal response). The left ventricular wall motion with stress is normal. Right Ventricle * The right ventricle is mildly dilated. * The right ventricular systolic function is normal as assessed by tricuspid annular plane systolic excursion (TAPSE) (normal >1.5 cm). Atria * Borderline left atrial enlargement. * The right atrium is mildly dilated. * No ASD detected; PFO is not assessed. Mitral Valve * The mitral valve is grossly normal. * There is no mitral valve stenosis. * Significant mitral regurgitation is absent. Tricuspid Valve * Significant tricuspid regurgitation is absent. Aortic Valve * The aortic valve is not well visualized. * The aortic valve is trileaflet. * No hemodynamically significant valvular aortic stenosis. * There is no significant aortic regurgitation. Pulmonic Valve * The pulmonary valve is inadequately visualized, but the Doppler data is adequate for interpretation. * There is no significant pulmonary regurgitation. Great Vessels * The aortic root and proximal ascending aorta are normal sized. Pericardium * There is no pericardial effusion. Stress Parameters * Sinus rhythm, non-specific ST changes. Poor R wave progression. * Arrhythmia noted in recovery: occasional PVC's. * Stress ECG: No ST changes. No arrhythmias. * Rest heart rate was '87' BPM. * Rest blood pressure was '92/58' * Maximum heart rate achieved was 130 bpm. * Maximum heart rate was 86 % of maximum age-predicted heart rate. * Maximum blood pressure was '173/66' * Total exercise time was '2:21' * Maximum exercise MET level achieved was '4.60' METS * Maximum treadmill speed was '1.70' miles per hour. * Maximum treadmill elevation was '10.00'% grade. * Exercise was terminated due to 'FATIGUE' Left Ventricular Findings with Stress * The study was technically difficult with many images being suboptimal in quality. MMode 2D Measurements and Calculations Ao root diam 4.0 cm Ao root area 12.5 cm\S\2 LVAd ap4 39.0 cm\S\2 LVLd ap4 9.0 cm EDV(MOD-sp4) 140.5 ml EDV(sp4-el) 143.5 ml LVAs ap4 26.1 cm\S\2 LVLs ap4 8.1 cm ESV(MOD-sp4) 76.7 ml ESV(sp4-el) 71.5 ml EF(MOD-sp4) 45.4 % EF(sp4-el) 50.2 % LVAd ap2 34.3 cm\S\2 LVLd ap2 9.0 cm EDV(MOD-sp2) 117.8 ml EDV(sp2-el) 111.1 ml LVAs ap2 23.2 cm\S\2 LVLs ap2 8.1 cm ESV(MOD-sp2) 63.2 ml ESV(sp2-el) 56.5 ml EF(MOD-sp2) 46.3 % EF(sp2-el) 49.1 % LVLd %diff -0.04 % EDV(MOD-bp) 128.2 ml LVLs %diff 0.17 % ESV(MOD-bp) 70.4 ml EF(MOD-bp) 45.1 % SV(MOD-sp4) 63.8 ml SI(MOD-sp4) 25.9 ml/m\S\2 SV(MOD-sp2) 54.6 ml SI(MOD-sp2) 22.1 ml/m\S\2 SV(MOD-bp) 57.8 ml SI(MOD-bp) 23.4 ml/m\S\2 SV(sp4-el) 72.0 ml SI(sp4-el) 29.2 ml/m\S\2 SV(sp2-el) 54.6 ml SI(sp2-el) 22.1 ml/m\S\2 Doppler Measurements and Calculations Ao V2 max 107.6 cm/sec Ao max PG 4.6 mmHg Ao max PG (full) 2.4 mmHg LV V1 max PG 2.2 mmHg LV V1 max 74.7 cm/sec
[2017-10-07] MEDS ORDERED: INSULIN GLARGINE SOLOSTAR 100 UNITS/ML 3 ML PEN SC SCH (21:00)
--- NOTE | 2017-10-07 23:34 | Discharge Summary ---
Discharge Summary Date of Service Oct 07, 2017. Discharge Summary Admission Date: Oct 06, 2017 at 17:13 Discharge Date: Oct 07, 2017 Discharge Disposition: Home Principal Diagnosis: chest pain, likely musculoskeletal in nature Problems/Secondary Diagnoses: 1. T2DM 2. hyperlipidemia 3. BPH 4. h/o DVT 5. cervical spine pain 6. morbidly obese - BMI 41 Immunizations: Have You Had Influenza Vaccine: Yes History of Tetanus Vaccine?: Yes History of Pneumococcal: Yes History of Hepatitis B Vaccine: No Procedures: 1. CTA chest: IMPRESSION: 1. No evidence for pulmonary embolus. 2. Multiple old left-sided rib fractures. No acute rib fractures. 3. No infiltrates. 2. stress echocardiogram: - Technically difficult study - * 1. Exercise stress echo negative for high risk ischemia. * 2. Inferior hypokinesis present on rest and stress images. * 3. No exercise induced ECG changes. Reduced functional capacity. Exercised 2:21 min, achieving 4.6 METS and 86% MPHR. * 4. Exercise induced shortness of breath but no chest pain. Normal hemodynamic response to exercise. * 5. Resting LVEF 50-55%. Mildly dilated RV, normal RV function. Grade I diastolic dysfunction. No significant valvular pathology. * 6. No prior studies for comparison. Consultations: cardiology - Hernando Pastor MD Medication Reconciliation New Medications: Aspirin (Aspirin EC Low Dose) 81 Mg Ectab 81 MG PO DAILY, #90 TABS 3 Refills Naproxen (Naprosyn) 500 Mg Tab 1 TAB PO BID for 7 Days, #14 TAB 0 Refills Continued Medications: Citalopram (Citalopram Hydrobromide) 40 Mg Tab 40 MG PO DAILY Finasteride (Proscar) 5 Mg Tab 5 MG PO DAILY, 0 Refills Fluoxetine (Prozac) 10 Mg Cap 10 MG PO DAILY, CAP Gabapentin (Neurontin) 300 Mg Cap 600 MG PO TID, 0 Refills Insulin Aspart (Novolog) 100 Units/Ml Inj SLINDING SCALE Insulin Glargine (Lantus) 100 Unit/Ml Inj 45 UNITS SC QPM, VIAL Multivitamin (Multivitamin) Tab 1 TAB PO DAILY, TAB Simvastatin (Zocor) 40 Mg Tab 40 MG PO QPM, 0 Refills Terazosin Hcl (Hytrin) 10 Mg Cap 5 MG PO HS, 0 Refills Trazodone Hcl (Trazodone) 50 Mg Tab 50 MG PO HS, 0 Refills Zolpidem Tartrate (Ambien) 10 Mg Tab 10 MG PO HS PRN for Sleep, TAB Discontinued Medications: Metformin HCl (Metformin HCl ER) 1,000 Mg Tab 1000 MG PO BID Discharge Exam Physical Exam: General Appearance: no apparent distress, + obese ENT: pharynx normal Neck: no JVD, + pertinent finding (tender, paraspinal areas, right neck; no spinous process pain ) Respiratory/Chest: lungs clear, no respiratory distress, no accessory muscle use, + pertinent finding (tender, left lower chest wall (anterior), with palpation ) Cardiovascular: regular rate, rhythm, no gallop, no murmur, normal peripheral pulses Abdomen / GI: normal bowel sounds, non tender, soft, no organomegaly Extremities: no pedal edema Neurologic/Psychiatric: alert, oriented x 3 Hospital Course HISTORY OF PRESENT ILLNESS: 67-year-old obese diabetic male who presented with sharp left-sided chest pain since the morning of admission. The pain was positional, reproducible, and somewhat pleuritic. The patient had 2 EKGs in the ER with the first showing flattened lateral T waves and then the second hours later with T-wave inversions laterally. The patient has no known coronary disease but did have a stress test recently in the [facility] more than a year ago which was negative. He has a history of DVT in the past and elevated d-dimer prompted a CT angiogram which did not show any pulmonary embolism or pleural/pericardial effusion, pulmonary parenchymal irritation or rib fractures. Most recently the patient had lost 33 pounds to reduce his hemoglobin A1c. HOSPITAL COURSE: The patient had 4 troponin levels during his stay all of which were undetectable. Telemetry was normal while here. Serial exams continued to show reproducible chest wall pain with palpation over the left lower lateral chest wall. He was seen in consult by cardiology who recommended exercise stress echocardiogram. See full report above. He had no chest pain during the study. The overall interpretation was that the study was felt to be low risk for ischemia. He was given a prescription for naprosyn 500mg BID for 7 days for his suspected musculoskeletal chest wall pain. During this time period he was asked to hold his aspirin to avoid stomach upset. He will resume his aspirin after the naprosyn course is complete. He will follow-up with his PCP within 1 week. Cardiology follow-up will also be arranged. Total Time Spent: Greater than 30 minutes This includes examination of the patient, discharge planning, medication reconciliation, and communication with other providers. Discharge Instructions Please refer to the electronic Patient Visit Report (Discharge Instructions) for additional information. Follow-Up PCP within 1 week [facility] within 1-2 weeks Additional Copies To Deanna Stewart M.D.; Didier Jo MD; Hernando Pastor M.D.
[2017-10-09] MEDS ORDERED: GABA-113 PO (08:29)
[2017-10-09] MEDS ORDERED: TRAZ50TA35 PO (12:26)
[2017-10-09] MEDS ORDERED: SIMV40TA2 PO (12:26)
[2017-10-09] MEDS ORDERED: FINA5TAB PO (12:26)
[2017-10-09] MEDS ORDERED: INSDGI SC (14:22)
[2017-10-09] MEDS ORDERED: NVLG SC (14:22)
[2017-10-09] MEDS ORDERED: MULT-506 PO (14:22)
[2017-10-09] MEDS ORDERED: FLUO10CA48 PO (14:22)
[2017-10-09] MEDS ORDERED: ZOLP10TA PO (14:22)
== END 2017-10-07 15:50 | disposition home or self-care (01) ==
LOC: C.EDB 12:38 → C.MED 17:13 → ENRESERV 17:44
PROVIDERS: ADMIT Internal Medicine; ATTEND Internal Medicine
DX: R07.9 Chest pain, unspecified (principal); R94.31 Abnormal electrocardiogram [ECG] [EKG]; N40.0 Benign prostatic hyperplasia without lower urinary tract symptoms; I73.9 Peripheral vascular disease, unspecified; E66.01 Morbid (severe) obesity due to excess calories; K21.9 Gastro-esophageal reflux disease without esophagitis; Z79.899 Other long term (current) drug therapy; Z68.41 Body mass index [BMI] 40.0-44.9, adult; E78.5 Hyperlipidemia, unspecified

== ENCOUNTER 2017-10-09 21:58 | Inpatient (IN) | payer OTHER ==
[~2017-10-09] VITALS: Ht 180.3 cm; Wt 139.4 kg
[~2017-10-09 21:58] MED LIST changes: -ASPI81TA28 PO; -METF-384 PO; -TERA5CAP PO
[2017-10-09] MEDS ORDERED: TERA5CAP PO (22:20)
[2017-10-09] MEDS ORDERED: ASPI81TA28 PO (22:20)
[2017-10-09 22:42] LABS: BASO % 0.5 %; BASO ABS # 0.04 K/uL (0-0.2); COMPLETE YES; EOS % 2.6 %; HEMATOCRIT 43.7 % (42-52); IG% 0.1 %; LYMPH % 27.6 %; LYMPH ABS # 2.04 K/uL (1.2-3.4); MEAN CELL VOLUME 93.2 fL (80-100); MEAN CORPUSCULAR HGB CONC 34.3 g/dl (32-36); MEAN PLATELET VOLUME 10.4 fL (7.4-10.4); MONO % 8.9 %; NEUT % 60.3 %; PLATELET COUNT 212 K/uL (130-400); RED BLOOD COUNT 4.69 M/uL (4.7-6.1); WHITE BLOOD COUNT 7.39 K/uL (4.8-10.8)
[2017-10-09 23:04] LABS: BUN/CREATININE RATIO 18.8 (10-20); CALCIUM 8.5 mg/dl (8.5-10.1); CREATININE 0.96 mg/dl (0.60-1.40)
[2017-10-09 23:11] LABS: BENZODIAZEPINE, URINE NEG (NEG); COCAINE,URINE NEG (NEG); PHENCYCLIDINE, URINE NEG (NEG)
[2017-10-09] MEDS ORDERED: NovoLIN-R INSULIN PER UNIT CHARGE SC STA (23:12)
[2017-10-09 23:13] LABS: ALB/GLOB RATIO 0.9 (0.9-2)
[2017-10-09 23:20] LABS: ACETAMINOPHEN < 2 ug/ml (10-30)
[2017-10-09 23:21] LABS: BETA-HYDROXYBUTYRATE 2.56 mg/dL (0.2-2.81); THYROID STIMULATING HORMONE 2.96 uIu/ml (0.300-4.500)
[2017-10-10] MEDS ORDERED: ZOLPIDEM TARTRATE 10 MG TAB PO PRN
--- NOTE | 2017-10-10 | EMERGENCY ROOM VISIT NOTE ---
History Report prepared by Karla: Shayne Son Under the Supervision of: Dr. Randall Kinney D.O. First contact with patient: 22:07 Chief Complaint: MENTAL HEALTH EVALUATION Stated Complaint: MENTAL HEALTH EVAL, SUICIDAL History of Present Illness The patient is a 67 year old male who presents to the Emergency Room for a mental health evaluation due to persistent suicidal ideations occurring earlier in the night. The patient states that he is currently a [place] , and he feels that no one cares about him. He states that he was at a bar earlier and had two light beers, and he states that he had a plan to kill himself by driving off the road. The patient states that his daughter told him that she did not care if he moves away, and he does not talk to his other daughter, and he feels like his brother does not care about him since last week he did not even know that the patient was in the hospital last week for chest pain. He states that these suicidal ideations have been there for a while, though they recently worsened. The patient states that his [facility] [place], and yet someone random invited him, and this made him very upset. He states that he currently does not care if he lives or dies. Source of History: patient Onset: earlier tonight Position: other (global) Quality: other (suicidal ideation) Timing: other (persistent) Review of Systems See HPI for pertinent positives & negatives. A total of 10 systems reviewed and were otherwise negative. Past Medical & Surgical Medical Problems: (1) Benign prostatic hypertrophy without outflow obstruction (2) Deep venous thrombosis of lower extremity (3) Depression (4) Gastroesophageal reflux disease (5) Localized, primary osteoarthritis of the lower leg (6) Morbid obesity (7) Peripheral vascular disease Family History Patient reports no known family medical history. Social History Smoking Status: Current Every Day Smoker Alcohol Use: occasionally Drug Use: none Occupation Status: retired Current/Historical Medications Scheduled Aspirin (Aspirin Ec), 81 MG PO DAILY Finasteride (Proscar), 5 MG PO DAILY Fluoxetine (Prozac), 10 MG PO DAILY Gabapentin (Neurontin), 600 MG PO TID Insulin Aspart (Novolog), 1 DOSE SC UD Insulin Glargine (Lantus), 45 UNITS SC QPM Multivitamin (Multivitamin), 1 TAB PO DAILY Naproxen (Naprosyn), 1 TAB PO BID Simvastatin (Zocor), 40 MG PO QPM Terazosin Hcl (Hytrin), 5 MG PO HS Trazodone Hcl (Trazodone), 50 MG PO HS Scheduled PRN Zolpidem Tartrate (Ambien), 10 MG PO HS PRN for Sleep Allergies Coded Allergies: No Known Allergies (Unverified , 10/06/17) Physical Exam Vital Signs Date Time Temp Pulse Resp B/P (MAP) Pulse Ox O2 Delivery O2 Flow Rate FiO2 10/09/17 22:00 36.3 74 20 179/90 97 Room Air Physical Exam CONSTITUTIONAL/VITAL SIGNS: Reviewed / noted above. GENERAL: Non-toxic in appearance. INTEGUMENTARY: Warm, dry, and [place]. HEAD: Normocephalic. EYES: without scleral icterus or trauma. ENT/OROPHARYNX: clear and moist. LYMPHADENOPATHY/NECK: Is supple without lymphadenopathy or meningismus. RESPIRATORY: Lungs clear and equal. CARDIOVASCULAR: Regular rate and rhythm. GI/ABDOMEN: Soft and nontender. No organomegaly or pulsatile mass. No rebound or guarding. Normal bowel sounds. EXTREMITIES: Warm and well perfused. BACK: No CVA tenderness. NEUROLOGICAL: Intact without focal deficits. PSYCHIATRIC: Depressed affect. MUSCULOSKELETAL: Normally developed with good muscle tone. Medical Decision & Procedures Laboratory Results 10/09/17 22:25 Red Blood Count 4.69, Mean Corpuscular Volume 93.2, Mean Corpuscular Hemoglobin 32.0, Mean Corpuscular Hemoglobin Concent 34.3, Mean Platelet Volume 10.4, Neutrophils (%) (Auto) 60.3, Lymphocytes (%) (Auto) 27.6, Monocytes (%) (Auto) 8.9, Eosinophils (%) (Auto) 2.6, Basophils (%) (Auto) 0.5, Neutrophils # (Auto) 4.45, Lymphocytes # (Auto) 2.04, Monocytes # (Auto) 0.66, Eosinophils # (Auto) 0.19, Basophils # (Auto) 0.04 10/09/17 22:22 Test 10/09/17 22:06 10/09/17 22:22 10/09/17 22:25 10/09/17 23:28 Urine Opiates Screen NEG (NEG) Urine Methadone, Qualitative NEG (NEG) Urine Barbiturates NEG (NEG) Urine Phencyclidine (PCP) Level NEG (NEG) Ur Amphetamine/Methamphetamine NEG (NEG) MDMA (Ecstasy) Screen NEG (NEG) Urine Benzodiazepines Screen NEG (NEG) Urine Cocaine Metabolite NEG (NEG) Urine Marijuana (THC) NEG (NEG) Anion Gap 9.0 mmol/L (3-11) Est Creatinine Clear Calc Drug Dose 103.7 ml/min Estimated GFR () 93.1 Estimated GFR (Non- 80.3 BUN/Creatinine Ratio 18.8 (10-20) Calcium Level 8.5 mg/dl (8.5-10.1) Total Bilirubin 0.2 mg/dl (0.2-1) Aspartate Amino Transf (AST/SGOT) 28 U/L (15-37) Alanine Aminotransferase (ALT/SGPT) 33 U/L (12-78) Alkaline Phosphatase 99 U/L (45-117) Total Protein 7.3 gm/dl (6.4-8.2) Albumin 3.5 gm/dl (3.4-5.0) Globulin 3.8 gm/dl (2.5-4.0) Albumin/Globulin Ratio 0.9 (0.9-2) Beta-Hydroxybutyric Acid 2.56 mg/dL (0.2-2.81) Thyroid Stimulating Hormone (TSH) 2.960 uIu/ml (0.300-4.500) Chemistry Specimen Hemolysis Salicylates Level 2.3 mg/dl (2.8-20) Acetaminophen Level < 2 ug/ml (10-30) White Blood Count 7.39 K/uL (4.8-10.8) Red Blood Count 4.69 M/uL (4.7-6.1) Hemoglobin 15.0 g/dL (14.0-18.0) Hematocrit 43.7 % (42-52) Mean Corpuscular Volume 93.2 fL (80-100) Mean Corpuscular Hemoglobin 32.0 pg (25-34) Mean Corpuscular Hemoglobin Concent 34.3 g/dl (32-36) Platelet Count 212 K/uL (130-400) Mean Platelet Volume 10.4 fL (7.4-10.4) Neutrophils (%) (Auto) 60.3 % Lymphocytes (%) (Auto) 27.6 % Monocytes (%) (Auto) 8.9 % Eosinophils (%) (Auto) 2.6 % Basophils (%) (Auto) 0.5 % Neutrophils # (Auto) 4.45 K/uL (1.4-6.5) Lymphocytes # (Auto) 2.04 K/uL (1.2-3.4) Monocytes # (Auto) 0.66 K/uL (0.11-0.59) Eosinophils # (Auto) 0.19 K/uL (0-0.5) Basophils # (Auto) 0.04 K/uL (0-0.2) RDW Standard Deviation 45.1 fL (36.4-46.3) RDW Coefficient of Variation 13.3 % (11.5-14.5) Immature Granulocyte % (Auto) 0.1 % Immature Granulocyte # (Auto) 0.01 K/uL (0.00-0.02) Ethyl Alcohol mg/dL 105.0 mg/dl (0-3) Bedside Glucose 285 mg/dl (70-99) Laboratory results as stated above per my review. Medications Administered Medications (Trade) Dose Ordered Sig/Jimbo Route Start Time Stop Time Status Last Admin Dose Admin Insulin Human Regular (novoLIN-R U-100 PER UNIT) 5 units NOW STAT SC 10/09/17 23:12 10/09/17 23:13 DC 10/09/17 23:34 5 UNITS ECG Indication: other (sucidal ideations) Rate (beats per minute): 87 Rhythm: sinus rhythm Findings: no ectopy, other (No acute injury) ED Course 2216: Previous medical records were reviewed. The patient was evaluated in room A7. A complete history and physical examination was performed. 2312: Insulin Regular Human 5 units SC 2339: I reevaluated the patient, and I discussed the treatment plan with him. 0000: The patient was signed out to Dr. Cruz at the change of shift. I ordered Ambien Tab 10mg PO Medical Decision differential includes toxic ingestions, self-mutilation, suicidal ideation, suicide attempt, depression. This is a 67-year-old male who presents to the ED with a chief complaint of depression and suicidal thoughts. The patient was depressed tonight. He is depressed that his family did not invite him over for Thanksgiving. He was thinking about getting drunk tonight and then driving his car into a tree or other solid object to kill himself. The patient was brought in for evaluation by police. The patient does have a history of diabetes. His blood sugar was 356. He was given subcutaneous insulin for this. He is chronically on metformin. The patient has a blood alcohol level of 105. He is medically cleared. He does not want to stay in the hospital voluntarily. The patient is being 302 commit him. He understands this. Petitioning statement was written by the ED mental health delegate. The patient was given Ambien to help him sleep as he takes this for sleep. He was given subcutaneous insulin for his elevated blood sugar. 5 units of subcutaneous insulin was given. This patient was signed out to the night doctor, Dr. Cruz awaiting placement. Medication Reconcilliation Current Medication List: was personally reviewed by me Blood Pressure Screening Patient's blood pressure: Elevated blood pressure Blood pressure disposition: Elevated BP felt to be situational Impression Primary Impression: Depression Additional Impression: Suicidal ideation Scribe Attestation The scribe's documentation has been prepared under my direction and personally reviewed by me in its entirety. I confirm that the note above accurately reflects all work, treatment, procedures, and medical decision making performed by me. Departure Information Dispostion Still a Patient Referrals No Doctor, Assigned (PCP) Patient Instructions [facility] Problem Qualifiers
--- NOTE | 2017-10-10 02:03 | EMERGENCY ROOM VISIT NOTE ---
ED Visit Note First contact with patient: 02:01 Patient was signed out to me with a [address] Kinney awaiting placement. Patient was evaluated by 3 S. admitted on a 302.
[2017-10-10] MEDS ORDERED: NURSING VERBAL MED ORDER ONE (02:30)
[2017-10-10 02:32] VITALS: O2SAT 95
[2017-10-10] MEDS ORDERED: LANTUS PER UNIT CHARGE SQ STA (02:41)
[2017-10-10] MEDS ORDERED: GABAPENTIN 600 MG TAB PO STA (02:42)
--- NOTE | 2017-10-10 02:44 | EMERGENCY ROOM VISIT NOTE ---
ED Visit Note First contact with patient: 02:01 d/w Pt regarding BSG 300. He notes he would have normally had his lantus. This was ordered along with Gabapentin.
[2017-10-10 03:03] VITALS: BP 126/65; PULSE 68; TEMP 36.6; BMI 42.9
[2017-10-10] MEDS ORDERED: NAPROXEN 250 MG TAB PO STA (03:06)
[2017-10-10] MEDS ORDERED: BISMUTH SUBSALICYLATE PER ML OMNICELL CHARGE PO PRN (03:45)
[2017-10-10] MEDS ORDERED: hydrOXYzine HCL 25 MG TAB PO PRN ×2 (03:45)
[2017-10-10] MEDS ORDERED: TRAZODONE HCL 50 MG TAB PO ONE (03:45)
[2017-10-10] MEDS ORDERED: MAGNESIUM HYDROXIDE SUSP 30 ML UDC PO PRN (03:45)
[2017-10-10] MEDS ORDERED: ALUMINUM/MAGNESIUM SUSP 30 ML UDC PO PRN (03:45)
[2017-10-10] MEDS ORDERED: ACETAMINOPHEN 325 MG TAB PO PRN (03:45)
[2017-10-10] MEDS ORDERED: SODIUM CHLORIDE 0.65% NA SOLN 45 ML (OCEAN) PRN (03:45)
[2017-10-10 06:31] VITALS: BP_SYST 113; BP_SYST 136; BP_DIAS 70; BP_DIAS 93; PULSE 72; PULSE 84; TEMP 36.6
[2017-10-10] MEDS ORDERED: PHARMACY GLYCEMIC MGMT CONSULT PRN (08:37)
[2017-10-10] MEDS: NICOTINE 21 MG/24 HR TDSY EXT SCH (09:00)
[2017-10-10] MEDS ORDERED: GABAPENTIN 300 MG CAP PO SCH (09:00)
[2017-10-10] MEDS: INSULIN ASPART 100 UNITS/ML 3 ML PEN SC SCH ×4 (10:03→20:28)
[2017-10-10] MEDS ORDERED: METF-384 PO (10:18)
[2017-10-10] MEDS ORDERED: FINASTERIDE 5 MG TAB PO ONE (11:23)
[2017-10-10] MEDS ORDERED: FLUOXETINE HCL 20 MG CAP PO ONE (11:23)
[2017-10-10] MEDS ORDERED: FLINTSTONES COMPLETE CHEWABLE TAB PO ONE (11:23)
[2017-10-10] MEDS ORDERED: METFORMIN HCL 500 MG TAB PO ONE (11:23)
[2017-10-10] MEDS ORDERED: NICOTINE POLACRILEX 2 MG GUM MT PRN (12:00)
[2017-10-10] MEDS: GABAPENTIN 600 MG TAB PO SCH ×2 (12:05→22:15)
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
[2017-10-10] MEDS: NAPROXEN 250 MG TAB PO SCH ×2 (12:29→22:20)
--- NOTE | 2017-10-10 14:38 | Pharmacy Progress Note ---
Pharmacy Glycemic Short Note 2 Date of Service Oct 10, 2017. OUTPATIENT ANTIDIABETIC REGIMEN: * Lantus 45 units SQ QPM * Novolog SSI * HbA1c: 8.7% (10/06/17) ASSESSMENT: * Patient is a 67yo diabetic male admitted with MDD/SI, PTSD. * Patient was hyperglycemic on admission, but this was likely d/t missed dose of insulin. BSGs have been reasonable today. * Recent HbA1c reflects sub-optimal glycemic control (non-compliance?) as an outpatient. PLAN FOR INPATIENT GLYCEMIC CONTROL: * Resume Metformin 1000mg PO BIDM * Basal insulin * Lantus 40 units SQ QHS * Bolus insulin * NovoLog per scale ACHS or Q6hrs while NPO * Goal Range: Low 110 mg/dL - High 140 mg/dL * Correction Factor: 20 mg/dL/unit * Nutritional / Prandial insulin per carb ratio of 1 unit per 8 grams CHO consumed PLAN FOR DISCHARGE: * Might consider adjustment to outpatient regimen on discharge, as A1c is elevated. * Could increase Lantus slightly and/or tighten correctional insulin parameters for Novolog. Would recommend close f/u with PCP/assembler garment form after discharge.
[2017-10-10] MEDS ORDERED: CALCIUM CARBONATE 500 MG CHEWABLE PO PRN (15:15)
[2017-10-10] MEDS: SIMVASTATIN 40 MG TAB PO SCH (17:37)
[2017-10-10] MEDS: METFORMIN HCL 500 MG TAB PO SCH (17:40)
[2017-10-10] MEDS ORDERED: INSULIN GLARGINE SOLOSTAR 100 UNITS/ML 3 ML PEN SC SCH (22:00)
[2017-10-10] MEDS: TRAZODONE HCL 50 MG TAB PO SCH (22:14)
[2017-10-10] MEDS: ZOLPIDEM TARTRATE 10 MG TAB PO PRN (22:29)
[2017-10-11 06:47] VITALS: BP_SYST 105; BP_DIAS 69; BP_DIAS 71; PULSE 82; PULSE 91; TEMP 36.3
[2017-10-11] MEDS: NICOTINE 21 MG/24 HR TDSY EXT SCH (07:50)
[2017-10-11] MEDS: FLINTSTONES COMPLETE CHEWABLE TAB PO SCH (08:14)
[2017-10-11] MEDS: NAPROXEN 250 MG TAB PO SCH ×2 (08:15→22:28)
[2017-10-11] MEDS: METFORMIN HCL 500 MG TAB PO SCH ×2 (08:15→17:50)
[2017-10-11] MEDS: FINASTERIDE 5 MG TAB PO SCH (08:16)
[2017-10-11] MEDS: GABAPENTIN 600 MG TAB PO SCH ×3 (08:16→22:28)
[2017-10-11] MEDS: FLUOXETINE HCL 20 MG CAP PO SCH (08:16)
[2017-10-11] MEDS: INSULIN ASPART 100 UNITS/ML 3 ML PEN SC SCH ×4 (08:49→22:00)
--- NOTE | 2017-10-11 13:53 | Psychiatric Progress Notes ---
Progress Note Date of Service Oct 11, 2017. Interval History Hemant Clark is a 67-year-old male who currently lives in [place] alone . Hemant Clark was admitted on a 302 involuntary commitment at 0024 on 10/10/17 (expires 10/15 at 0024). Patient is admitted from home. The patient was brought to the ED by the police. Information provided by the patient is considered to be reliable. Chief Complaint "I think I am beginning to understand some things". Subjective Patient was seen & assessed interval progress reviewed with Nursing He slept overnight. His neighbors are his only supports, they are coming today to get his keys to move his car for him. He was writing and when asked he stated he was sorting his thoughts. He signed and RYAN for his dtr and he stated he may call her today. Patient is engaged iwth peers getting "perspective' on the difficulties in his relationships. He denies having access to a gun (will change risk assessment) He would like to continue to participate in treatment and wants to sign in voluntarily. He continues to feel depressed and anxious and uncertain, meaning about his relationships with dtrs, he reveals a complicated relationship with a woman in [facility] whom he has helped to financially support for 2 years, and also ongoing financial debt of his own to the IRS and to student loans from getting his CAT in [id number]. He feels overwhelmed and "I don't know what to do" He notes it was these cumulative stressors that lead into his suicidal hopeless ness. He continues to have some hopelessness, and fears but feels he is making progress here talking about it, "now I just have to make some decisions and figure out how to stop avoiding." He denies SE from prozac and beleives it may be helping. Intact sleep, appetite and denies other physical concerns. Review of Systems See above denies physical concerns. Sleep Information Total Hours of Sleep: 6.50 Meal Information Percent of Breakfast Consumed: 80 Percent of Lunch Consumed: 100 Percent of Dinner Consumed: 100 Mental Status Exam During interview pt is: alert and oriented Appearance: appropriately dressed Eye contact is: good Motor behavior is: steady gait & station, no abnormal motor movements Speech: normal in rate, rhythm & volume Affect: mood congruent, depressed Mood is: depressed Thought process: goal directed, linear, logical, other Thought content: reality based without delusions, self deprecation, other Suicidal thought are: present, Plan: present, Intent: denied Homicidal thoughts are: denied Hallucinations: denies auditory, denies visual Cognition: memory grossly intact Intelligence estimated to be: average, consistent with level of education Insight: good Judgement: good He has a need to tell his full story with all details, is difficult to redirect to succinctness and overtly interprets any effort to redirect as uncaring. However as soon as provider shares about mutual status he gives provider license to direct the interview and stops making comments about being misunderstood by everyone. Impression The patient is a 67-year-old white male with a long-standing history of PTSD and mood related symptoms consistent with major depressive disorder rule out dysthymia. He reports a remote history of crack cocaine dependence that is in sustained full remission. By his history he has alcohol dependence that he reports is remitted however his blood alcohol level was 105 at time of admission. He denies a history of complicated withdrawal and states his drinks are infrequent. We will watch his vital signs as a precautionary I do not think he needs the withdrawal protocol scale at this time. His labs appear to be reasonable although his blood sugars are causing some acidosis in the ER but his sugar seemed to be responding well to an sullen. We will return him to his outpatient Glucophage as well. We appreciate the pharmacist recommendations on sliding scale alongside of his evening Lantus. In regards to safety and patient care as the least restrictive and most appropriate setting for care given his suicidal ideations his plan is limited judgment regarding alcohol which could disinhibit him, having means and [place] a car and continuing to feel depressed and hopeless are all ongoing risk factors for this man. I will need to clarify if he indeed has access to a weapon or not which is an additional risk factor. In regards to mood and PTSD have requested that we increase his medication Prozac from 10 mg a day to 20 mg a day. I will continue his trazodone and Ambien at this time to foster consistent sleep. He does have ongoing neck attained dependence he is precontemplational on regarding quitting will offer nicotinic replacement gum at his request. Psychologically and socially the patient both wants to be cared for and have people identify with him and yet projects the average [employer] attempt to acknowledge his service. His position as you not unique to him and is common amongst war veterans. I have challenged him today to work on thinking people who take time to acknowledge his service while also coming up with ways to keep boundary to not speaking about things he wishes not to. I further challenged him to consider ways to connect with others to do understand and to read developed social connections through either [employer], [facility] or his samuel. He has ambivalent feelings regarding his daughters both wishing they would reach out and show care for him but feeling here and no longer continue to try to cultivate a relationship with them "I have tried it is their turn now." We will try to break down this barrier while he is here as he allows. He has multiple medical concerns we'll continue his outpatient regimen. We will increase his Hytrin from 5 mg to 7 mg to try to help the ongoing urinary hesitancy he experiences at night. Plan (1) Depression 10/10 increase Prozac from 10 mg to 20 mg, continue inpatient environment as this is the least restrictive and most appropriate setting for care given his multiple risk factors and lack of outpatient resources, further will challenge him to begin to consider ways to interpret people's efforts to connect to him to pay for the way as well as considering environments and places where he may begin to develop social connection. Currently inpatient milieu, group therapy as well and safety checks. We will need to arrange aftercare as well 10/11/17 - continue prozac 20mg, and focus on social connectivity and sorting through his stressors relationship-rice and financially. Although he is denying overt SI he is at risk given he is unable to contract for safety outside the hospital due to ongoing stressors in outpatient setting ongoing severe stressors that have not been mitigated, and no aftercare in place (2) Chronic post-traumatic stress disorder (PTSD) 10/10/17 see depression as above, consider outpatient resources for ongoing support with this long-standing injury (3) Gastroesophageal reflux disease Will make [facility] available for patient, if GERD continues would consider Zantac or PPI (4) Localized, primary osteoarthritis of the lower leg Patient was given naproxen for musculoskeletal issues mainly a recent flare of rib pain this may help his lower extremity pain as well but this will be time limited for a total of 7 days as per outpatient doctor's recommendations. (5) Morbid obesity Recommend patient exercise daily discussed resources as recumbent bike and walking on the unit as well as diabetic diet (6) Peripheral vascular disease Patient was on aspirin 81 mg a day due to prior DVT (status post 9 months of Coumadin remotely) this has been held while he is on naproxen. His aspirin will need restarted after his naproxen ends, will invest in diabetic control as well (7) Diabetes Appreciate pharmacies salt in an salon sliding scale regimen alongside his 45 mg of evening Lantus, diabetic diet, recommending exercise as well, continuing outpatient Glucophage and simvastatin (8) Benign prostatic hypertrophy without outflow obstruction Continue outpatient finasteride, increases Terazosin and from 5 mg at bedtime to 7 mg at bedtime to help with urinary hesitancy at night watching blood pressure and orthostasis as potential side effects Discharge / Aftercare Planning Primary Care Physician: Name: [facility] Therapist: Name: Sonido [employer] Debeader: Name: Sonido Visit Code E&M Code: 12180 Inventory Assets Strengths: Presently admitted to an inpatient unit Willingness to take medications His knowledge about his health issues and his medications Needs: Social connectivity Treatment for his depression and PTSD to include therapy and outpatient prescribing services Safe environment given he is suicidal Risk Factors Assessment Male: Yes : Yes /single/: Yes Health problems: Yes Mental Health Diagnoses: Yes Substance use disorders: Yes Previous attempt: No Previous attempt;highly lethal: No Previous attempt; planned: No Previous attempt; didn't tell: No Family history of suicide: No Previous psychiatric stay: Yes Hopelessness: Yes Smoker: Yes Protective Factors Assessment Nondenominational beliefs: Yes : No Responsible for young children: No Employed: No Stable relationships: No Supportive family: No Good rapport with provider: No Data Vital Signs Last 24 Hrs: Date Time Temp Pulse Resp B/P (MAP) Pulse Ox O2 Delivery O2 Flow Rate FiO2 10/11/17 06:47 36.3 82 18 105/69 91 105/71 Meds Administered Last 24 Hrs: Meds Administered (Past 24Hrs) Medications (Trade) Dose Ordered Sig/Jimbo Route Start Time Stop Time Status Last Admin Dose Admin Insulin Human Regular (novoLIN-R U-100 PER UNIT) 5 units NOW STAT SC 10/09/17 23:12 10/09/17 23:13 DC 10/09/17 23:34 5 UNITS Zolpidem Tartrate (Ambien Tab) 10 mg HS PRN PO 10/10/17 00:00 10/10/17 02:33 DC 10/10/17 00:21 10 MG Insulin Glargine (Lantus Per Unit) 45 units 0241 STAT SQ 10/10/17 02:41 10/10/17 02:42 DC 10/10/17 02:54 45 UNITS Gabapentin (Neurontin Tab) 600 mg NOW STAT PO 10/10/17 02:42 10/10/17 02:43 DC 10/10/17 03:04 600 MG Naproxen (Naprosyn Tab) 500 mg NOW STAT PO 10/10/17 03:06 10/10/17 03:07 DC 10/10/17 03:09 500 MG Trazodone HCl (Desyrel Tab) 50 mg HS PO 10/10/17 22:00 11/09/17 21:59 10/10/17 22:14 50 MG Trazodone HCl (Desyrel Tab) 50 mg ONE ONCE PO 10/10/17 03:45 10/10/17 03:46 DC 10/10/17 03:57 50 MG Nicotine (Nicoderm Cq 21MG Patch) 1 patch QAM EXT 10/10/17 09:00 11/09/17 08:59 10/11/17 07:50 1 PATCH Insulin Aspart (novoLOG ASPART) SLIDING SCALE ACHS SC 10/10/17 08:45 11/09/17 08:44 10/10/17 17:39 4 UNITS Gabapentin (Neurontin Tab) 600 mg TID PO 10/10/17 14:00 11/09/17 08:59 10/11/17 08:16 600 MG Finasteride (Proscar Tab) 5 mg QAM PO 10/11/17 09:00 11/10/17 08:59 10/11/17 08:16 5 MG Finasteride (Proscar Tab) 5 mg 1123 ONCE PO 10/10/17 11:23 10/10/17 11:42 DC 10/10/17 12:05 5 MG Fluoxetine HCl (Prozac Cap) 20 mg QAM PO 10/11/17 09:00 11/10/17 08:59 10/11/17 08:16 20 MG Fluoxetine HCl (Prozac Cap) 20 mg 1123 ONCE PO 10/10/17 11:23 10/10/17 11:42 DC 10/10/17 12:06 20 MG Metformin HCl (Glucophage Tab) 1,000 mg BIDM PO 10/10/17 17:45 11/09/17 17:44 10/11/17 08:15 1,000 MG Metformin HCl (Glucophage Tab) 1,000 mg 1123 ONCE PO 10/10/17 11:23 10/10/17 11:56 DC 10/10/17 12:22 1,000 MG Multivitamins (Flintstones Complete Tab) 1 tab QAM PO 10/11/17 09:00 11/10/17 08:59 10/11/17 08:14 1 TAB Multivitamins (Flintstones Complete Tab) 1 tab 1123 ONCE PO 10/10/17 11:23 10/10/17 11:42 DC 10/10/17 12:05 1 TAB Naproxen (Naprosyn Tab) 500 mg BID PO 10/10/17 22:00 10/17/17 09:00 10/11/17 08:15 500 MG Simvastatin (Zocor Tab) 40 mg PM PO 10/10/17 17:00 11/09/17 16:59 10/10/17 17:37 40 MG Terazosin HCl (Hytrin Cap) 2 mg HS PO 10/10/17 22:00 11/09/17 21:59 10/10/17 22:15 2 MG Terazosin HCl (Hytrin Cap) 5 mg HS PO 10/10/17 22:00 11/09/17 21:59 10/10/17 22:15 5 MG Zolpidem Tartrate (Ambien Tab) 10 mg HSZ PRN PO 10/10/17 11:30 11/09/17 11:29 10/10/17 22:29 10 MG Nicotine Polacrilex (Nicorette 2MG Gum) 1 piece PRN PRN MT 10/10/17 12:00 11/09/17 11:59 10/10/17 13:27 1 PIECE Insulin Glargine (Lantus Solostar Pen) 40 units HS SC 10/10/17 22:00 11/09/17 21:59 10/10/17 22:24 40 UNITS Lab Results Last 24 Hrs: Last 24 Hours Test 10/10/17 08:45 10/10/17 12:25 10/10/17 17:05 10/10/17 20:20 Bedside Glucose 159 mg/dl 87 mg/dl 112 mg/dl 113 mg/dl Test 10/10/17 22:10 10/11/17 07:19 Bedside Glucose 148 mg/dl 154 mg/dl
--- NOTE | 2017-10-11 14:54 | Pharmacy Progress Note ---
Pharmacy Glycemic Short Note 2 Date of Service Oct 11, 2017. OUTPATIENT ANTIDIABETIC REGIMEN: * Lantus 45 units SQ QPM * Novolog SSI * HbA1c: 8.7% (10/06/17) ASSESSMENT: * Patient is a 67yo diabetic male admitted with MDD/SI, PTSD. * Patient was hyperglycemic on admission, but this was likely d/t missed dose of insulin. BSGs have been reasonable. * Fasting BSG slightly higher than it needs to be, so will increase Lantus this evening to patient's outpatient dose. May consider tightening Novolog parameters tomorrow. * Recent HbA1c reflects sub-optimal glycemic control (non-compliance?) as an outpatient. PLAN FOR INPATIENT GLYCEMIC CONTROL: * Resume Metformin 1000mg PO BIDM * Basal insulin -- resume outpatient dose * Lantus 45 units SQ QHS * Bolus insulin * NovoLog per scale ACHS or Q6hrs while NPO * Goal Range: Low 110 mg/dL - High 140 mg/dL * Correction Factor: 20 mg/dL/unit * Nutritional / Prandial insulin per carb ratio of 1 unit per 8 grams CHO consumed PLAN FOR DISCHARGE: * Might consider adjustment to outpatient regimen on discharge, as A1c is elevated. * Could increase Lantus slightly and/or tighten correctional insulin parameters for Novolog. Would recommend close f/u with PCP/car manager after discharge.
[2017-10-11] MEDS: SIMVASTATIN 40 MG TAB PO SCH (17:24)
[2017-10-11] MEDS: INSULIN GLARGINE SOLOSTAR 100 UNITS/ML 3 ML PEN SC SCH (22:00)
[2017-10-11] MEDS: TRAZODONE HCL 50 MG TAB PO SCH (22:26)
[2017-10-11 22:51] VITALS: BP 126/77; PULSE 87
[2017-10-12 06:54] VITALS: BP_SYST 119; BP_SYST 122; BP_DIAS 76; BP_DIAS 79; PULSE 76; PULSE 87; TEMP 36.4
[2017-10-12] MEDS: FLINTSTONES COMPLETE CHEWABLE TAB PO SCH (08:27)
[2017-10-12] MEDS: NICOTINE 21 MG/24 HR TDSY EXT SCH (08:27)
[2017-10-12] MEDS: GABAPENTIN 600 MG TAB PO SCH ×3 (08:28→22:08)
[2017-10-12] MEDS: NAPROXEN 250 MG TAB PO SCH ×2 (08:28→22:08)
[2017-10-12] MEDS: METFORMIN HCL 500 MG TAB PO SCH ×2 (08:28→17:15)
[2017-10-12] MEDS: FINASTERIDE 5 MG TAB PO SCH (08:29)
[2017-10-12] MEDS: FLUOXETINE HCL 20 MG CAP PO SCH (08:29)
--- NOTE | 2017-10-12 08:34 | Psychiatric Progress Notes ---
Progress Note Date of Service Oct 12, 2017. Interval History Hemant Clark is a 67-year-old male who currently lives in [place] alone . Hemant Clark was admitted on a 302 involuntary commitment at 0024 on 10/10/17 (expires 10/15 at 0024). Patient is admitted from home. The patient was brought to the ED by the police. Information provided by the patient is considered to be reliable. Chief Complaint "I feel better". Subjective Patient was seen & assessed interval progress reviewed with Nursing Participating in groups, asked for journal to begin journaling, talked to older dtr on the phone, wrote younger dtr a letter, and called . Took ambien to sleep which was effective. Pt was seen for interview along with Elaine Quintanilla PA-C. Pt states medication is "doing great" and that he feels better. Reports mood is the same , he was "happy" to be able to speak with his mother and aunt this AM. Aunt states his mother has "given up". Family continues to encourage him and dissuade him from harmful thoughts. Pt report he "feels numb" after receiving that news, and requests insight. Pt was asked to continue to observe to determine if it is truly the news vs. blunting from the Prozac. Pt reports writing letter to his estranged daughter which he plans to share with the group today. Pt is hesitant about potential for discharge Saturday, stating "would I be able to stay longer? I'd like to see how I'm feeling on Saturday". Pt states he has "my own support group" of people at home, but was counseled about reminding himself to reach out to these people. Is open to scheduling dinner on a regular basis with his daughter in order to stay connected. Pt was encouraged to find a resource that would allow him to interact with other people on a regular basis. States he is planning to purchase golf clubs and thinks getting out would be helpful. Considering adopting a pet as well to have a lacquer sizer within the household. Denies current SI and is optimistic about resources and plans for the future. Review of Systems Psych: denies symptoms other than stated above Constitutional: reports continued neck and rib pain Cardiovascular: denied GI: denied Neurologic: denied Remainder of 10 body systems also reviewed and denied other than noted above. Sleep Information Total Hours of Sleep: 6.50 Meal Information Percent of Breakfast Consumed: 80 Percent of Lunch Consumed: 100 Percent of Dinner Consumed: 100 Mental Status Exam During interview pt is: alert and oriented Appearance: appropriately dressed Eye contact is: good Motor behavior is: steady gait & station, no abnormal motor movements Speech: normal in rate, rhythm & volume, loud Affect: mood congruent, depressed Mood is: depressed, other ("I feel good") Thought process: goal directed, linear, logical, other Thought content: reality based without delusions, self deprecation, other Suicidal thought are: present, Plan: present, Intent: denied Homicidal thoughts are: denied Hallucinations: denies auditory, denies visual Cognition: memory grossly intact, attention grossly intact, language grossly intact Intelligence estimated to be: consistent with level of education Insight: good Judgement: good He has a need to tell his full story with all details, is difficult to redirect to succinctness and overtly interprets any effort to redirect as uncaring. However as soon as provider shares about mutual status he gives provider license to direct the interview and stops making comments about being misunderstood by everyone. Impression The patient is a 67-year-old white male with a long-standing history of PTSD and mood related symptoms consistent with major depressive disorder rule out dysthymia. He reports a remote history of crack cocaine dependence that is in sustained full remission. By his history he has alcohol dependence that he reports is remitted however his blood alcohol level was 105 at time of admission. He denies a history of complicated withdrawal and states his drinks are infrequent. Plan (1) Depression 10/10 increase Prozac from 10 mg to 20 mg, continue inpatient environment as this is the least restrictive and most appropriate setting for care given his multiple risk factors and lack of outpatient resources, further will challenge him to begin to consider ways to interpret people's efforts to connect to him to pay for the way as well as considering environments and places where he may begin to develop social connection. Currently inpatient milieu, group therapy as well and safety checks. We will need to arrange aftercare as well 10/11/17 - continue prozac 20mg, and focus on social connectivity and sorting through his stressors relationship-rice and financially. Although he is denying overt SI he is at risk given he is unable to contract for safety outside the hospital due to ongoing stressors in outpatient setting ongoing severe stressors that have not been mitigated, and no aftercare in place 10/12/17 - continue prozac 20mg, asked pt to continue monitoring mood in response to reported blunting. Continues to deny SI at this time, but is still attempting to fix relationships with estranged family members. No current aftercare, but plans to discharge Saturday once in place. Pt encouraged to find resources that would allow him to spend time with other people to foster relationships. Aside from [employer], looking to find other ways to draw connectivity. - wants aftercare provided through the [facility] in order to have his insurance cover it. Reports he will likely refuse aftercare in [place]. (2) Chronic post-traumatic stress disorder (PTSD) 10/10/17 see depression as above, consider outpatient resources for ongoing support with this long-standing injury (3) Gastroesophageal reflux disease Will make [facility] available for patient, if GERD continues would consider Zantac or PPI (4) Localized, primary osteoarthritis of the lower leg Patient was given naproxen for musculoskeletal issues mainly a recent flare of rib pain this may help his lower extremity pain as well but this will be time limited for a total of 7 days as per outpatient doctor's recommendations. (5) Morbid obesity Recommend patient exercise daily discussed resources as recumbent bike and walking on the unit as well as diabetic diet (6) Peripheral vascular disease Patient was on aspirin 81 mg a day due to prior DVT (status post 9 months of Coumadin remotely) this has been held while he is on naproxen. His aspirin will need restarted after his naproxen ends, will invest in diabetic control as well (7) Diabetes Appreciate pharmacies intake on sliding scale regimen alongside his 45 mg of evening Lantus, diabetic diet, recommending exercise as well, continuing outpatient Glucophage and simvastatin (8) Benign prostatic hypertrophy without outflow obstruction Continue outpatient finasteride, increases Terazosin and from 5 mg at bedtime to 7 mg at bedtime to help with urinary hesitancy at night watching blood pressure and orthostasis as potential side effects Discharge / Aftercare Planning Primary Care Physician: Name: [facility] Therapist: Name: None Business Continuity Planner: Name: None Visit Code E&M Code: 55671 Inventory Assets Strengths: Presently admitted to an inpatient unit Willingness to take medications His knowledge about his health issues and his medications Needs: Social connectivity Treatment for his depression and PTSD to include therapy and outpatient prescribing services Safe environment given he is suicidal Risk Factors Assessment Male: Yes : Yes /single/: Yes Health problems: Yes Mental Health Diagnoses: Yes Substance use disorders: Yes Previous attempt: No Previous attempt;highly lethal: No Previous attempt; planned: No Previous attempt; didn't tell: No Family history of suicide: No Previous psychiatric stay: Yes Hopelessness: Yes Smoker: Yes Protective Factors Assessment Roman Catholic beliefs: Yes : No Responsible for young children: No Employed: No Stable relationships: No Supportive family: No Good rapport with provider: No Data Vital Signs Last 24 Hrs: Date Time Temp Pulse Resp B/P (MAP) Pulse Ox O2 Delivery O2 Flow Rate FiO2 10/12/17 06:54 36.4 76 18 119/76 87 122/79 10/11/17 22:51 87 126/77 Meds Administered Last 24 Hrs: Meds Administered (Past 24Hrs) Medications (Trade) Dose Ordered Sig/Jimbo Route Start Time Stop Time Status Last Admin Dose Admin Trazodone HCl (Desyrel Tab) 50 mg HS PO 10/10/17 22:00 11/09/17 21:59 10/11/17 22:26 50 MG Nicotine (Nicoderm Cq 21MG Patch) 1 patch QAM EXT 10/10/17 09:00 11/09/17 08:59 10/11/17 07:50 1 PATCH Insulin Aspart (novoLOG ASPART) SLIDING SCALE ACHS SC 10/10/17 08:45 11/09/17 08:44 10/11/17 18:04 11 UNITS Gabapentin (Neurontin Tab) 600 mg TID PO 10/10/17 14:00 11/09/17 08:59 10/11/17 22:28 600 MG Finasteride (Proscar Tab) 5 mg QAM PO 10/11/17 09:00 11/10/17 08:59 10/11/17 08:16 5 MG Finasteride (Proscar Tab) 5 mg 1123 ONCE PO 10/10/17 11:23 10/10/17 11:42 DC 10/10/17 12:05 5 MG Fluoxetine HCl (Prozac Cap) 20 mg QAM PO 10/11/17 09:00 11/10/17 08:59 10/11/17 08:16 20 MG Fluoxetine HCl (Prozac Cap) 20 mg 1123 ONCE PO 10/10/17 11:23 10/10/17 11:42 DC 10/10/17 12:06 20 MG Metformin HCl (Glucophage Tab) 1,000 mg BIDM PO 10/10/17 17:45 11/09/17 17:44 10/11/17 17:50 1,000 MG Metformin HCl (Glucophage Tab) 1,000 mg 1123 ONCE PO 10/10/17 11:23 10/10/17 11:56 DC 10/10/17 12:22 1,000 MG Multivitamins (Flintstones Complete Tab) 1 tab QAM PO 10/11/17 09:00 11/10/17 08:59 10/11/17 08:14 1 TAB Multivitamins (Flintstones Complete Tab) 1 tab 1123 ONCE PO 10/10/17 11:23 10/10/17 11:42 DC 10/10/17 12:05 1 TAB Naproxen (Naprosyn Tab) 500 mg BID PO 10/10/17 22:00 10/17/17 09:00 10/11/17 22:28 500 MG Simvastatin (Zocor Tab) 40 mg PM PO 10/10/17 17:00 11/09/17 16:59 10/11/17 17:24 40 MG Terazosin HCl (Hytrin Cap) 2 mg HS PO 10/10/17 22:00 11/09/17 21:59 10/11/17 22:27 2 MG Terazosin HCl (Hytrin Cap) 5 mg HS PO 10/10/17 22:00 11/09/17 21:59 10/11/17 22:26 5 MG Zolpidem Tartrate (Ambien Tab) 10 mg HSZ PRN PO 10/10/17 11:30 11/09/17 11:29 10/10/17 22:29 10 MG Nicotine Polacrilex (Nicorette 2MG Gum) 1 piece PRN PRN MT 10/10/17 12:00 11/09/17 11:59 10/10/17 13:27 1 PIECE Insulin Glargine (Lantus Solostar Pen) 40 units HS SC 10/10/17 22:00 10/11/17 13:18 DC 10/10/17 22:24 40 UNITS Lab Results Last 24 Hrs: Last 24 Hours Test 10/11/17 12:37 10/11/17 16:11 10/11/17 21:03 Bedside Glucose 163 mg/dl 164 mg/dl 78 mg/dl
[2017-10-12] MEDS: INSULIN ASPART 100 UNITS/ML 3 ML PEN SC SCH ×4 (08:52→22:00)
[2017-10-12 10:00] VITALS: Ht 180.3 cm; Wt 139.4 kg
--- NOTE | 2017-10-12 11:07 | Pharmacy Progress Note ---
Pharmacy Glycemic Short Note 2 Date of Service Oct 12, 2017. OUTPATIENT ANTIDIABETIC REGIMEN: * Lantus 45 units qPM and Novolog SSI ASSESSMENT: * Yesterday, Mr Clark received 31 units of insulin (31 units of prandial coverage- REFUSED his Lantus). His fasting blood sugar is 153 mg/dL. Since the patient refused his Lantus dose yesterday evening, expect patient's blood sugar to be elevated today. Continue current regimen. PLAN FOR INPATIENT GLYCEMIC CONTROL: * Basal insulin * Lantus 45 units SQ HS * Bolus insulin * NovoLog per scale ACHS or Q6hrs while NPO * Goal Range: Low 110 mg/dL - High 140 mg/dL * Correction Factor: 20 mg/dL/unit * Nutritional / Prandial insulin per carb ratio of 1 unit per 8 grams CHO consumed PLAN FOR DISCHARGE: * see note from 10/10/17
[2017-10-12] MEDS: SIMVASTATIN 40 MG TAB PO SCH (17:15)
[2017-10-12] MEDS: INSULIN GLARGINE SOLOSTAR 100 UNITS/ML 3 ML PEN SC SCH (22:00)
[2017-10-12] MEDS: TRAZODONE HCL 50 MG TAB PO SCH (22:09)
[2017-10-12] MEDS: ZOLPIDEM TARTRATE 10 MG TAB PO PRN (22:09)
[2017-10-13 06:54] VITALS: BP_SYST 110; BP_SYST 118; BP_DIAS 65; BP_DIAS 73; PULSE 83; PULSE 96; TEMP 36.3
[2017-10-13] MEDS: FLINTSTONES COMPLETE CHEWABLE TAB PO SCH (08:08)
[2017-10-13] MEDS: FLUOXETINE HCL 20 MG CAP PO SCH (08:09)
[2017-10-13] MEDS: FINASTERIDE 5 MG TAB PO SCH (08:09)
[2017-10-13] MEDS: METFORMIN HCL 500 MG TAB PO SCH ×2 (08:09→17:54)
[2017-10-13] MEDS: GABAPENTIN 600 MG TAB PO SCH ×3 (08:09→22:38)
[2017-10-13] MEDS: NICOTINE 21 MG/24 HR TDSY EXT SCH (08:09)
[2017-10-13] MEDS: NAPROXEN 250 MG TAB PO SCH ×2 (08:09→22:38)
--- NOTE | 2017-10-13 08:36 | Psychiatric Progress Notes ---
Progress Note Date of Service Oct 13, 2017. Interval History Hemant Clark is a 67-year-old male who currently lives in [place] alone . Hemant Clark was admitted on a 302 involuntary commitment at 0024 on 10/10/17 (expires 10/15 at 0024). Patient is admitted from home. The patient was brought to the ED by the police. Information provided by the patient is considered to be reliable. Chief Complaint "[]". Subjective Patient was seen & assessed interval progress reviewed with Nursing He is engaging on the unit. He had a good conversation with his older dtr, he admitted he is avoiding some financial stressors, he is considering adopting a dog. He slept well. He denies SE to medications. He shares today how he feels more hopeful and looks forward to getting aftercare in place that he trusts "even if I have to drive to [place]" He is hopeful about connecting to his family. He has not made any firm decisions about the relationship in [place] but has some things he is considering to help discern if that relationship is "real" He has not made any concrete plans on how to deal with his financial problems with student loans or IRS. He denies SI, intention or plan at this time. Review of Systems See above, as well he has ongoing rib pain and neck pain as well Sleep Information Total Hours of Sleep: 7.00 Meal Information Percent of Breakfast Consumed: 100 Percent of Lunch Consumed: 100 Percent of Dinner Consumed: 100 Mental Status Exam During interview pt is: alert and oriented Appearance: appropriately dressed Eye contact is: good Motor behavior is: steady gait & station, no abnormal motor movements Speech: normal in rate, rhythm & volume, loud Affect: mood congruent, depressed Mood is: depressed, other ("I feel good") Thought process: goal directed, linear, logical, other Thought content: reality based without delusions, self deprecation, other Suicidal thought are: present, Plan: present, Intent: denied Homicidal thoughts are: denied Hallucinations: denies auditory, denies visual Cognition: memory grossly intact, attention grossly intact, language grossly intact Intelligence estimated to be: consistent with level of education Insight: good Judgement: good He has a need to tell his full story with all details, is difficult to redirect to succinctness and overtly interprets any effort to redirect as uncaring. However as soon as provider shares about mutual status he gives provider license to direct the interview and stops making comments about being misunderstood by everyone. Impression The patient is a 67-year-old white male with a long-standing history of PTSD and mood related symptoms consistent with major depressive disorder rule out dysthymia. He reports a remote history of crack cocaine dependence that is in sustained full remission. By his history he has alcohol dependence that he reports is remitted however his blood alcohol level was 105 at time of admission. He denies a history of complicated withdrawal and states his drinks are infrequent. Plan (1) Depression 10/10 increase Prozac from 10 mg to 20 mg, continue inpatient environment as this is the least restrictive and most appropriate setting for care given his multiple risk factors and lack of outpatient resources, further will challenge him to begin to consider ways to interpret people's efforts to connect to him to pay for the way as well as considering environments and places where he may begin to develop social connection. Currently inpatient milieu, group therapy as well and safety checks. We will need to arrange aftercare as well 10/11/17 - continue prozac 20mg, and focus on social connectivity and sorting through his stressors relationship-rice and financially. Although he is denying overt SI he is at risk given he is unable to contract for safety outside the hospital due to ongoing stressors in outpatient setting ongoing severe stressors that have not been mitigated, and no aftercare in place 10/12/17 - continue prozac 20mg, asked pt to continue monitoring mood in response to reported blunting. Continues to deny SI at this time, but is still attempting to fix relationships with estranged family members. No current aftercare, but plans to discharge Saturday once in place. Pt encouraged to find resources that would allow him to spend time with other people to foster relationships. Aside from golfing, looking to find other ways to draw connectivity. - [facility]. Reports he will likely refuse aftercare in [place]. 10/13/17 - he is improved but still has many ongoing signficant stressors. He is somewhat optimistic and spent today attempting to help him see there will bee good and bad days after he leaves and to consider ways to avoid interpersonally hypersensitive interpretations of other's behaviors as rejecting and see restoring relationship as a process - he remains at risk as he has many risk factors White male, elderly, alone, pain, financial stressors, and the remaining modifiable Risk factor is aftercare. To discharge prematurely would be to put him at risk and so discharge will be delayed until aftercare appt are made (2) Chronic post-traumatic stress disorder (PTSD) 10/10/17 see depression as above, consider outpatient resources for ongoing support with this long-standing injury (3) Gastroesophageal reflux disease Will make [facility] available for patient, if GERD continues would consider Zantac or PPI (4) Localized, primary osteoarthritis of the lower leg Patient was given naproxen for musculoskeletal issues mainly a recent flare of rib pain this may help his lower extremity pain as well but this will be time limited for a total of 7 days as per outpatient doctor's recommendations. (5) Morbid obesity Recommend patient exercise daily discussed resources as recumbent bike and walking on the unit as well as diabetic diet (6) Peripheral vascular disease Patient was on aspirin 81 mg a day due to prior DVT (status post 9 months of Coumadin remotely) this has been held while he is on naproxen. His aspirin will need restarted after his naproxen ends, will invest in diabetic control as well (7) Diabetes Appreciate pharmacies intake on sliding scale regimen alongside his 45 mg of evening Lantus, diabetic diet, recommending exercise as well, continuing outpatient Glucophage and simvastatin (8) Benign prostatic hypertrophy without outflow obstruction Continue outpatient finasteride, increases Terazosin and from 5 mg at bedtime to 7 mg at bedtime to help with urinary hesitancy at night watching blood pressure and orthostasis as potential side effects Discharge / Aftercare Planning Primary Care Physician: Name: [facility] Clinic Therapist: Name: None Quality Control Chemist: Name: None Visit Code E&M Code: 28082 Inventory Assets Strengths: Presently admitted to an inpatient unit Willingness to take medications His knowledge about his health issues and his medications Needs: Social connectivity Treatment for his depression and PTSD to include therapy and outpatient prescribing services Safe environment given he is suicidal Risk Factors Assessment Male: Yes : Yes /single/: Yes Access to guns: No Health problems: Yes Mental Health Diagnoses: Yes Substance use disorders: Yes Previous attempt: No Previous attempt;highly lethal: No Previous attempt; planned: No Previous attempt; didn't tell: No Family history of suicide: No Previous psychiatric stay: Yes Hopelessness: Yes Smoker: Yes Protective Factors Assessment Episcopal beliefs: Yes : No Responsible for young children: No Employed: No Stable relationships: No Supportive family: No Good rapport with provider: No Data Vital Signs Last 24 Hrs: Date Time Temp Pulse Resp B/P (MAP) Pulse Ox O2 Delivery O2 Flow Rate FiO2 10/13/17 06:54 36.3 96 16 118/65 83 110/73 Meds Administered Last 24 Hrs: Meds Administered (Past 24Hrs) Medications (Trade) Dose Ordered Sig/Jimbo Route Start Time Stop Time Status Last Admin Dose Admin Miscellaneous (Remove Nicoderm Patch) 1 ea QAM N/A 10/11/17 09:00 11/10/17 08:59 10/12/17 08:27 1 EA Finasteride (Proscar Tab) 5 mg QAM PO 10/11/17 09:00 11/10/17 08:59 10/12/17 08:29 5 MG Fluoxetine HCl (Prozac Cap) 20 mg QAM PO 10/11/17 09:00 11/10/17 08:59 10/12/17 08:29 20 MG Multivitamins (Flintstones Complete Tab) 1 tab QAM PO 10/11/17 09:00 11/10/17 08:59 10/12/17 08:27 1 TAB Lab Results Last 24 Hrs: Last 24 Hours Test 10/12/17 07:46 10/12/17 11:39 10/12/17 15:29 10/12/17 19:34 Bedside Glucose 153 mg/dl 179 mg/dl 155 mg/dl 93 mg/dl Test 10/12/17 20:36 10/12/17 22:09 Bedside Glucose 68 mg/dl 137 mg/dl
[2017-10-13] MEDS: INSULIN ASPART 100 UNITS/ML 3 ML PEN SC SCH ×4 (08:39→21:27)
--- NOTE | 2017-10-13 10:51 | Pharmacy Progress Note ---
Pharmacy Glycemic Short Note 2 Date of Service Oct 13, 2017. OUTPATIENT ANTIDIABETIC REGIMEN: * Lantus 45 units in the evening and Novolog SSI ASSESSMENT: * Mr Clark is a 67 y/o M admitted with major depressive disorder. Over the past two days, the patient has refused his Lantus coverage. His last dose of Lantus was 40 units on 10/10/17. The patient's blood sugars have ranged from 68 mg/dL to 179 mg/dL over the past 24 hours. Fasting today was 122 mg/dL. Patient received 23 units of correctional insulin only yesterday. * Due to declining fasting blood sugars without Lantus administration, decreased Lantus dose to a scale with maximum dose of 20 units (half of what he received previously). Blood sugars tend to be highest at lunch and then trend downwards throughout the day. Loosen Novolog parameters. PLAN FOR INPATIENT GLYCEMIC CONTROL: * metformin 1 gm PO BID * Basal insulin * Lantus 0-20 units SQ HS based upon blood sugar * Bolus insulin * NovoLog per scale ACHS or Q6hrs while NPO * Goal Range: Low 110 mg/dL - High 140 mg/dL * Correction Factor: 30 mg/dL/unit * Nutritional / Prandial insulin per carb ratio of 1 unit per 10 grams CHO consumed PLAN FOR DISCHARGE: * see note from 10/10/17
[2017-10-13] MEDS ORDERED: INSULIN GLARGINE SOLOSTAR 100 UNITS/ML 3 ML PEN SC SCH ×2 (17:00→22:00)
[2017-10-13] MEDS: SIMVASTATIN 40 MG TAB PO SCH (17:33)
[2017-10-13] MEDS: TRAZODONE HCL 50 MG TAB PO SCH (22:36)
[2017-10-13] MEDS: ZOLPIDEM TARTRATE 10 MG TAB PO PRN (22:38)
[2017-10-14 07:01] VITALS: BP_SYST 147; BP_SYST 150; BP_DIAS 69; BP_DIAS 80; PULSE 91; PULSE 98; TEMP 36.4
[2017-10-14] MEDS: NICOTINE 21 MG/24 HR TDSY EXT SCH (07:46)
[2017-10-14] MEDS: FLINTSTONES COMPLETE CHEWABLE TAB PO SCH (07:47)
[2017-10-14] MEDS: METFORMIN HCL 500 MG TAB PO SCH (07:47)
[2017-10-14] MEDS: NAPROXEN 250 MG TAB PO SCH (07:48)
[2017-10-14] MEDS: GABAPENTIN 600 MG TAB PO SCH ×2 (07:48→13:01)
[2017-10-14] MEDS: FINASTERIDE 5 MG TAB PO SCH (07:48)
[2017-10-14] MEDS: FLUOXETINE HCL 20 MG CAP PO SCH (07:49)
[2017-10-14] MEDS: INSULIN ASPART 100 UNITS/ML 3 ML PEN SC SCH ×2 (08:48→12:58)
[2017-10-14] MEDS ORDERED: INSULIN GLARGINE SOLOSTAR 100 UNITS/ML 3 ML PEN SC SCH (09:00)
--- NOTE | 2017-10-14 09:44 | Pharmacy Progress Note ---
Pharmacy Glycemic Short Note 2 Date of Service Oct 14, 2017. OUTPATIENT ANTIDIABETIC REGIMEN: * Lantus 45 units qPM plus Novolog sliding scale ASSESSMENT: * Mr Clark is a 67 y/o M admitted with major depressive disorder. His fasting blood sugar today was 139 mg/dL (compared to 153 mg/dL and 122 mg/dL). Over the past 24 hours, his blood sugar has ranged from 117-122 mg/dL (had one value at lunch at 209 mg/dL). He received 21 units of correctional insulin (ONLY 3 units was correctional insulin.....18 units was carbohydrate coverage). * Consider addition of Lantus this morning as this may have eliminated blood sugar spike at lunch HOWEVER the patient's subsequent blood sugars were extremely stable (121 mg/dL --> 117 mg/dL --> 139 mg/dL). If fasting blood sugars continue to rise then addition of Lantus is appropriate. If has additional spike at lunch today, patient may just require tighter carbohydrate coverage at breakfast then looser coverage throughout the rest of the day. PLAN FOR INPATIENT GLYCEMIC CONTROL: * metformin 1 gm PO BID * Bolus insulin * NovoLog per scale ACHS or Q6hrs while NPO * Goal Range: Low 110 mg/dL - High 140 mg/dL * Correction Factor: 30 mg/dL/unit * Nutritional / Prandial insulin per carb ratio of 1 unit per 10 grams CHO consumed PLAN FOR DISCHARGE: * Please see note from 10/10/17 but appears that patient is not well controlled on home regimen. There may be a source of non-compliance here. Recommend diabetes and dietary counseling.
[2017-10-14] MEDS ORDERED: FLUO20CA20 PO (10:00)
[2017-10-14] MEDS ORDERED: HYT1 PO (10:00)
--- NOTE | 2017-10-14 10:11 | Discharge Instructions ---
Discharge Information Report Includes Report will include the: Discharge Instructions & Summary Admission Admission Date / Time: Oct 10, 2017 at 02:25 Reason for Admission: Major Depressive D/O, Single Episode, Ptsd Discharge Discharge Diagnosis / Problem: Depression Condition at Discharge: Good Discharge Goals Goal(s): Decrease discomfort, Improve disease control Activity Recommendations Activity Limitations: resume your previous activity . Instructions / Follow-Up Instructions / Follow-Up . SPECIAL CARE INSTRUCTIONS: 1. Follow through with your scheduled aftercare appointments. If unable to keep an appointment, please call to reschedule. 2. Take your medication only as prescribed. Medication should not be changed or stopped without the approval of your doctor. In the event of worsening symptoms or concerns about side effects, contact your doctor immediately. 3. Utilize new healthy coping skills, anger management skills, and stress management skills learned during your hospitalization. Journal feelings and process them with a support person. Identify stressors or situations that may result in relapse, deterioration or inappropriate behaviors and develop a plan to deal with those issues. 4. If your coping skills are ineffective and you are in crisis, contact your outpatient providers for direction. If unable to reach your providers, please call the CAN HELP LINE AT or go to the closest Emergency Room. 5. Avoid alcohol and un-prescribed drugs. 6. You have been provided with the Mental Health Advance Directives Pamphlet for your review. AFTERCARE APPOINTMENTS: * Please call your insurance company prior to your scheduled appointment to confirm your aftercare providers are covered. Take your insurance information to your appointments. . Discharge / Aftercare Planning Primary Care Physician: Name: [facility] Therapist: Name Of Therapist: None Turning And Beading Machine Operator: Name: None . Follow-Up Care Plan for Follow-Up Care: The patient will have prompt [facility] at the [facility] Diet Patient's current hospital diet: Diabetes Type 2 Diet Discharge Diet Recommended Diet: Diabetes Type 2 Diet Procedures Procedures Performed: No Pending Studies Pending Studies at Discharge: No Medical Emergencies . Who to Call and When: Medical Emergencies: For questions or emergencies related to your hospital stay, please contact the Inpatient Behavioral Health Unit at [phone]. A home therapy clinician is on-call 10/06 for the Behavioral Health Unit for emergencies At any time you feel your situation is an emergency, you may also call 911 immediately. . Non-Emergent Contact Non-Emergency issues call your: Primary Care Provider, Psychiatrist, Therapist Past History Medical & Surgical History: (1) Benign prostatic hypertrophy without outflow obstruction (2) Gastroesophageal reflux disease (3) Morbid obesity (4) Peripheral vascular disease (5) Diabetes Advance Directives Do You Have an Existing Mental: No Existing Living Will: Yes Existing Power of Cartridge Filler: No The Person Making Decisions: [facility] Advance Directives Info Given: To Pt/S.O. Advance Directives Reason: Declines as Mental Health Visit. Discharge Summary Admission HPI Per the Admitting provider: The patient is a 67-year-old male with a known history of PTSD and probable depression, remote history of crack cocaine use in remission as well as alcohol abuse by history. He presents in the context of having called the [facility] Hot[facility] on October 09 telling them he wanted to kill himself. The patient was brought to the emergency room by police and he admitted to having the suicidal plan to become intoxicated and kill himself by driving off the road. He was not voluntary for admission and was placed on 302 petition that was completed by the ER physician and CAN help on October 10 at 12:24 AM. The immediate stressor to the patient is that he was sitting in a restaurant getting food in [place] when the senior business process analyst ask him what his Thanksgiving plans were. She invited him for Thanksgiving to join her and her [place] father. When the senior business process analyst inquired about his family he noted they had not invited him for Thanksgiving and he began to ruminate and dwell on how the stranger was more polite and kind to him than his own family who "just doesn't care." Other recent insults included the patient's visit to acute medical services over the weekend for chest pain to rule out heart attack. He sent repeated texts to his oldest daughter who simply would text back "OK". He felt her minimal responses and her lack of inquiry and how he was doing was further evidence of her lack of caring. He states "I'd rather than continue being uncared for." He denies imminent intent here in the hospital but cannot contract for safety if he was not in the hospital. The patient states he has been isolated over many years. He gets along well with his neighbors but has limited other social contacts. He has not played golf with his friends since approximately 2010. Although he is Orthodoxy he does not involved in a samuel community. 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 Occasionally he will go for a ride. 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 He states he has intrusive memories, nightmares, physiological reexperiencing when exposed to certain cues such as funerals or . He avoids certain conversations about more [place]. He avoids going to see the [place] wall "it brings me to my knees." He avoided seeing his daughters who of colon cancer several years ago because he could not go to the hospital. The patient has poor sleep "I don't sleep unless I take Ambien" he states he can feel irritable and have limited concentration and feel on edge at times. He feels somewhat detached and numb feeling nobody can understand his combat experiences other than another war vet and feels irritated that others make "careless statements" about [place]. The patient states he was undiagnosed for many years and was abusing alcohol after his return from [place]. In approximately 2003 he was using crack cocaine and then ultimately was admitted in 2004 at the [facility] for drug rehabilitation. He states he subsequently went on to have some treatment at a 90 day program in [facility] it is unclear if that was psychiatric in nature or substance related as well and since has been on medications and seen intermittently through the [facility]. He has been on Paxil in the past at some point was changed to Celexa and Wellbutrin and then in the last 4-5 months to Prozac. The patient had a good working relationship with Dr. Stewart who is a primary care provider in the outpatient setting at the [facility] but when she left he has ill feelings towards the new replacement provider. He states his Prozac was changed by his psychologist at the [facility] talking to the pharmacist and it was started at 10 mg. He denies side effects he has never been on a higher dose. In regards to other anxiety symptoms he does state he is a worrier namely worrying about the safety of his family and grand kids and people that he cares about. He states watching news makes him feel more anxious given the violence [place] over the last several years. He states at times he can get short of breath with tightening of his chest occurs "approximately once a week" denies sweating and shaking but can feel on edge and restless at those times. He states he can become irritable when he feels others do not care but denies physical or verbal aggression. He denies signs or symptoms of [place] phobia. He denies signs or symptoms of OCD. He denies social phobia. Although he can be isolative due to his long-standing PTSD. The patient does describe a long-standing history of depression. It does sound that there are times where he feels lower than others but the episodes are never discrete and it is not clear that he ever feels fully well for extended periods of time for many decades. He states sometimes he has "good days" but those are rare. He does have periods where he does not sleep as well 4-5 hours a night for 3-4 days but denies associated increases of energy, motivation, goal-directed behavior, euphoria, worsening of irritability or grandiosity or talkativeness. Instead he feels tired and might nap during the day and those times. Most recently he has been feeling more depressed, with self to evaluating thoughts, feeling hopeless, helpless, crying spells and sadness. He states these symptoms preceded yesterday's events which probably made it harder for him to endure. He states with his current medication regimen to include the trazodone and Ambien at night he sleeps well. He reports intact appetite. Psychiatric review of symptoms: - He denies signs or symptoms of psychosis now or in the past even when severely depressed. - He denies physical aggression to self or others now or in the past - He denies eating disordered behaviors although he has struggled with obesity for some time - He denies symptoms of disruptive behavioral disorders in childhood Admission Exam Per the Admitting provider: He has a need to tell his full story with all details, is difficult to redirect to succinctness and overtly interprets any effort to redirect as uncaring. However as soon as provider shares about mutual status he gives provider license to direct the interview and stops making comments about being misunderstood by everyone. Hospital Course (1) Depression 10/10 increase Prozac from 10 mg to 20 mg, continue inpatient environment as this is the least restrictive and most appropriate setting for care given his multiple risk factors and lack of outpatient resources, further will challenge him to begin to consider ways to interpret people's efforts to connect to him to pay for the way as well as considering environments and places where he may begin to develop social connection. Currently inpatient milieu, group therapy as well and safety checks. We will need to arrange aftercare as well 10/11/17 - continue prozac 20mg, and focus on social connectivity and sorting through his stressors relationship-rice and financially. Although he is denying overt SI he is at risk given he is unable to contract for safety outside the hospital due to ongoing stressors in outpatient setting ongoing severe stressors that have not been mitigated, and no aftercare in place 10/12/17 - continue prozac 20mg, asked pt to continue monitoring mood in response to reported blunting. Continues to deny SI at this time, but is still attempting to fix relationships with estranged family members. No current aftercare, but plans to discharge Saturday once in place. Pt encouraged to find resources that would allow him to spend time with other people to foster relationships. Aside from golfing, looking to find other ways to draw connectivity. - [facility]. Reports he will likely refuse aftercare in [place]. 10/13/17 - he is improved but still has many ongoing signficant stressors. He is somewhat optimistic and spent today attempting to help him see there will bee good and bad days after he leaves and to consider ways to avoid interpersonally hypersensitive interpretations of other's behaviors as rejecting and see restoring relationship as a process - he remains at risk as he has many risk factors White male, elderly, alone, pain, financial stressors, and the remaining modifiable Risk factor is aftercare. To discharge prematurely would be to put him at risk and so discharge will be delayed until aftercare appt are made (2) Chronic post-traumatic stress disorder (PTSD) 10/10/17 see depression as above, consider outpatient resources for ongoing support with this long-standing injury (3) Gastroesophageal reflux disease Will make [facility] available for patient, if GERD continues would consider Zantac or PPI (4) Localized, primary osteoarthritis of the lower leg Patient was given naproxen for musculoskeletal issues mainly a recent flare of rib pain this may help his lower extremity pain as well but this will be time limited for a total of 7 days as per outpatient doctor's recommendations. (5) Morbid obesity Recommend patient exercise daily discussed resources as recumbent bike and walking on the unit as well as diabetic diet (6) Peripheral vascular disease Patient was on aspirin 81 mg a day due to prior DVT (status post 9 months of Coumadin remotely) this has been held while he is on naproxen. His aspirin will need restarted after his naproxen ends, will invest in diabetic control as well (7) Diabetes Appreciate pharmacies intake on sliding scale regimen alongside his 45 mg of evening Lantus, diabetic diet, recommending exercise as well, continuing outpatient Glucophage and simvastatin (8) Benign prostatic hypertrophy without outflow obstruction Continue outpatient finasteride, increases Terazosin and from 5 mg at bedtime to 7 mg at bedtime to help with urinary hesitancy at night watching blood pressure and orthostasis as potential side effects Risk Factors Assessment Male: Yes : Yes /single/: Yes Access to guns: No Health problems: Yes Mental Health Diagnoses: Yes Substance use disorders: Yes Previous attempt: No Previous attempt;highly lethal: No Previous attempt; planned: No Previous attempt; didn't tell: No Family history of suicide: No Previous psychiatric stay: Yes Hopelessness: Yes Smoker: Yes Protective Factors Assessment Sikh beliefs: Yes : No Responsible for young children: No Employed: No Stable relationships: No Supportive family: No Good rapport with provider: No Day of Discharge Assessment COURSE OF HOSPITALIZATION: The patient was on our unit for 4 days. He was initially admitted on a 302 involuntary and then converted to a 201 voluntary. He was admitted with multiple stressors including the fact that he does not feel cared for by anyone, had not been invited to Thanksgiving by either of his daughters. He has been feeling quite lonely and without resources, had called the [facility] and was then brought to our emergency room by police for evaluation. He was initially resistant to treatment but then after admission engaged and found the environment helpful, a place he could focus on himself. During the remainder of his stay, he was without suicidal ideation. He asked for his follow-up psychiatric care to be arranged through the [facility] [place], not feeling confident in the [facility] where he had previously received medical services. He clearly benefited from being among people, was gregarious with his peers and always grateful for help. During his stay he developed a safety plan, and now has multiple people in his neighborhood who he will call if he needs someone's help. He is also decided that he will go to the [facility] and get another dog as his dog last year. In terms of medications , the patient's Prozac was increased from 10 mg to 20 mg. He was continued on all of his medical medications with the exception of increasing his Hytrin to 7 mg at bedtime. We appreciate the help of the diabetic pharmacist in managing his diabetic needs. The patient does not carb count at home and since he was worried about his sugar bottoming out during the night, he refused his glargine Enslen here, however plans to go back to it when he returns home. DAY OF DISCHARGE ASSESSMENT: Today the patient is requesting discharge. He feels significantly better than on admission and denies any suicidal or homicidal ideation. He can state his safety plan clearly and seems excited about going home and starting with a better attitude. Today he is casually and appropriately dressed and groomed. Gait and station are within normal limits. Eye contact is good. Speech is of normal rate volume and tone. Thoughts are organized, goal directed, and without evidence of thought disorder. Recent and remote memory are intact per conversation. Intelligence is estimated to be average. Insight and judgment are improved over admission. Laboratory Test 10/09/17 22:06 10/09/17 22:22 10/09/17 22:25 10/13/17 21:02 Urine Opiates Screen NEG Urine Methadone, Qualitative NEG Urine Barbiturates NEG Urine Phencyclidine (PCP) Level NEG Ur Amphetamine/Methamphetamine NEG MDMA (Ecstasy) Screen NEG Urine Benzodiazepines Screen NEG Urine Cocaine Metabolite NEG Urine Marijuana (THC) NEG Sodium Level 137 Potassium Level 4.0 Chloride Level 98 Carbon Dioxide Level 30 Anion Gap 9.0 Blood Urea Nitrogen 18 Creatinine 0.96 Est Creatinine Clear Calc Drug Dose 103.7 Estimated GFR () 93.1 Estimated GFR (Non- 80.3 BUN/Creatinine Ratio 18.8 Random Glucose 356 Calcium Level 8.5 Total Bilirubin 0.2 Aspartate Amino Transferase (AST) 28 Alanine Aminotransferase (ALT) 33 Alkaline Phosphatase 99 Total Protein 7.3 Albumin 3.5 Globulin 3.8 Albumin/Globulin Ratio 0.9 Beta-Hydroxybutyric Acid 2.56 Thyroid Stimulating Hormone (TSH) 2.960 Chemistry Specimen Hemolysis Salicylates Level 2.3 Acetaminophen Level < 2 White Blood Count 7.39 Red Blood Count 4.69 Hemoglobin 15.0 Hematocrit 43.7 Mean Corpuscular Volume 93.2 Mean Corpuscular Hemoglobin 32.0 Mean Corpuscular Hemoglobin Concent 34.3 Platelet Count 212 Mean Platelet Volume 10.4 Neutrophils (%) (Auto) 60.3 Lymphocytes (%) (Auto) 27.6 Monocytes (%) (Auto) 8.9 Eosinophils (%) (Auto) 2.6 Basophils (%) (Auto) 0.5 Neutrophils # (Auto) 4.45 Lymphocytes # (Auto) 2.04 Monocytes # (Auto) 0.66 Eosinophils # (Auto) 0.19 Basophils # (Auto) 0.04 RDW Standard Deviation 45.1 RDW Coefficient of Variation 13.3 Immature Granulocyte % (Auto) 0.1 Immature Granulocyte # (Auto) 0.01 Ethyl Alcohol mg/dL 105.0 POC Glucose 117 Test 10/14/17 07:18 POC Glucose 139 Total Time Total Time Spent (min): Greater than 30 minutes Total Time Included: examination of the patient, discharge planning, medication reconciliation, communication with other providers Tobacco Cessation at Discharge Smoking Status: Current Every Day Smoker (1ppd) FDA approved Prescription: declined med & out pt counseling
== END 2017-10-14 13:43 | disposition home or self-care (01) | DRG 881 ==
LOC: C.EDB 21:59 → C.MHU 10-10 02:25
PROVIDERS: ADMIT Student in an Organized Health Care Education/Training Program; ATTEND Psychiatry & Neurology Psychiatry
DX: F32.9 Major depressive disorder, single episode, unspecified (principal); R45.851 Suicidal ideations; Z68.41 Body mass index [BMI] 40.0-44.9, adult; E66.01 Morbid (severe) obesity due to excess calories; N40.0 Benign prostatic hyperplasia without lower urinary tract symptoms; F43.12 Post-traumatic stress disorder, chronic; K21.9 Gastro-esophageal reflux disease without esophagitis; I73.9 Peripheral vascular disease, unspecified; E11.9 Type 2 diabetes mellitus without complications; F17.200 Nicotine dependence, unspecified, uncomplicated; Z79.4 Long term (current) use of insulin; Z79.82 Long term (current) use of aspirin; Z79.84 Long term (current) use of oral hypoglycemic drugs; Z79.899 Other long term (current) drug therapy; Z86.718 Personal history of other venous thrombosis and embolism; Z81.8 Family history of other mental and behavioral disorders

== ENCOUNTER → 2017-10-09 | Outpatient (CLI) | payer OTHER ==
[~2017-10-09] MED LIST changes: -AMB10 PO; +ASPEC81 PO; +ASPI81TA28 PO; -BUPR-83 PO; -CLX20 PO; +CLX40 PO; -ENOX40IN SQ; +FINA5TAB PO; +FLUO10CA48 PO; +GABA-113 PO; -GLC500 PO; -HYDR-4383 PO; -INSUINJ17 SC; -LISI-461 PO; +METF-384 PO; +MULT-506 PO; -MULTIVITAMIN/IRON PO; +NPR500 PO; +NVLG SC; -OXYC-57 PO; -OXYSR20 PO; +SIMV40TA2 PO; +TERA5CAP PO; +TRAZ50TA35 PO; +ZOLP10TA PO
[2017-10-09 15:02] LABS: BLOOD UREA NITROGEN 22 mg/dl (7-18); BUN/CREATININE RATIO 24.7 (10-20); CALCIUM 8.8 mg/dl (8.5-10.1); CARBON DIOXIDE 26 mmol/L (21-32); CHLORIDE 100 mmol/L (98-107); CREATININE 0.88 mg/dl (0.60-1.40); GLUCOSE 367 mg/dl (70-99); POTASSIUM 4.5 mmol/L (3.5-5.1); SODIUM 136 mmol/L (136-145)
[2017-10-09 15:18] LABS: BETA-HYDROXYBUTYRATE 1.13 mg/dL (0.2-2.81)
--- NOTE | 2017-10-09 21:25 | Progress Note ---
Progress Note Date of Service Oct 09, 2017. Progress Note time - 2100 late entry: Reviewed BMP from earlier today. Creatinine stable; glucose noted to be elevated. Called pt's home phone # --- no answer, went to voicemail. Told patient he COULD RESUME METFORMIN at this time. Told patient his glucose was high and that if he continued to run high he needed to call his PCP. Jeb Roberts MD
== END | disposition home or self-care (01) ==
LOC: C.LAB 11:00
PROVIDERS: ATTEND Internal Medicine
DX: E11.9 Type 2 diabetes mellitus without complications (principal)

== ENCOUNTER → 2018-03-24 | Outpatient (CLI) | payer OTHER ==
[~2018-03-24] MED LIST changes: -ASPEC81 PO; +ASPI81TA28 PO; -CLX40 PO; -FLUO10CA48 PO; +FLUO20CA20 PO; +HYT1 PO; +METF-384 PO; -TERA1CAP63 PO; +TERA5CAP PO
--- NOTE | 2018-03-24 13:06 | DIAGNOSTIC IMAGING REPORT ---
SI JOINTS 3 OR MORE VIEWS CLINICAL HISTORY: 67 years-old Male presenting with LOW BACK PAIN. TECHNIQUE: Frontal and bilateral oblique views of the sacroiliac joints were obtained. COMPARISON: Plain radiograph of the pelvis from 09/03/2011. FINDINGS: Sacroiliac joints are symmetric and congruent. No evidence of erosions, widening, significant osteophytosis, or effusion. No acute fracture or malalignment. Lumbar spine grossly normal. No radiographic soft tissue abnormality. IMPRESSION: Normal radiographic examination of the sacroiliac joints. Electronically signed by: Otto Napier M.D. 03/24/2018 1:05 PM Dictated Date/Time: 03/24/2018 1:03 PM
--- NOTE | 2018-03-24 13:41 | DIAGNOSTIC IMAGING REPORT ---
LUMBAR SPINE 5 VIEWS HISTORY: LOW BACK PAIN COMPARISON: None. FINDINGS: There is no acute fracture. No subluxation. Moderate facet osteoarthritis within the mid to lower lumbar spine. Mild disc space narrowing at L1-L2 and L2-L3. Small endplate osteophytes throughout the upper to mid lumbar spine. The sacrum is intact. Old nonunited right L3 transverse process fracture. IMPRESSION: No acute fracture or subluxation within the lumbar spine. Degenerative changes as described above. Electronically signed by: Hima Razo M.D. 03/24/2018 1:40 PM Dictated Date/Time: 03/24/2018 1:38 PM
== END | disposition home or self-care (01) ==
LOC: C.RAD1850 12:32
PROVIDERS: ATTEND Family Medicine
DX: M47.816 Spondylosis without myelopathy or radiculopathy, lumbar region (principal); M53.3 Sacrococcygeal disorders, not elsewhere classified

== ENCOUNTER 2018-03-31 16:34 | Emergency (ER) | payer OTHER ==
[~2018-03-31] VITALS: Ht 182.9 cm; Wt 154.6 kg
[~2018-03-31 16:34] MED LIST changes: +NAPR-21 PO; -NPR500 PO
[2018-03-31 16:37] VITALS: TEMP 36.5
--- NOTE | 2018-03-31 16:59 | EMERGENCY ROOM VISIT NOTE ---
History Report prepared by Karla: Kira Starks Under the Supervision of: Dr. Alfonzo Cardona M.D. 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 He notes that he went to his PCP, Dr. Wolf, today who referred the patient to the ED as he was concerned the patient had a stroke. 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 He also notes that the pain radiates down both of his legs and he has numbness in his right foot that began last night. He describes his foot numbness like he is "walking on a stump" but notes it feels different than his neuropathy. He denies any urinary symptoms, vomiting, chest pain, SOB, recent trauma, or previous strokes. 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 Review of Systems See HPI for pertinent positives & negatives. A total of 10 systems reviewed and were otherwise negative. Past Medical & Surgical Medical Problems: (1) Benign prostatic hypertrophy without outflow obstruction (2) Chronic post-traumatic stress disorder (PTSD) (3) Deep venous thrombosis of lower extremity (4) Depression (5) Diabetes (6) Gastroesophageal reflux disease (7) Localized, primary osteoarthritis of the lower leg (8) Morbid obesity (9) Peripheral vascular disease Family History Patient reports no known family medical history. Social History Smoking Status: Never Smoker Alcohol Use: occasionally Drug Use: none Occupation Status: retired Current/Historical Medications Scheduled Aspirin (Aspirin Ec), 81 MG PO DAILY Finasteride (Proscar), 5 MG PO DAILY Fluoxetine Hcl (Pmdd) (Fluoxetine), 1 CAP PO DAILY Gabapentin (Neurontin), 600 MG PO TID Insulin Aspart (Novolog), 1 DOSE SC UD Insulin Glargine (Lantus), 40 UNITS SC QPM Metformin Hcl (Glucophage), 1,000 MG PO BIDM Multivitamin (Multivitamin), 1 TAB PO DAILY Naproxen (Naprosyn), 1 TAB PO BID Simvastatin (Zocor), 40 MG PO QPM Terazosin Hcl (Hytrin), 5 MG PO HS Trazodone Hcl (Trazodone), 50 MG PO HS Scheduled PRN Zolpidem Tartrate (Ambien), 10 MG PO HS PRN for Sleep Allergies Coded Allergies: No Known Allergies (Unverified , 03/31/18) Physical Exam Vital Signs Date Time Temp Pulse Resp B/P (MAP) Pulse Ox O2 Delivery O2 Flow Rate FiO2 03/31/18 21:56 74 16 143/81 94 03/31/18 21:14 84 18 140/77 92 Room Air 03/31/18 19:25 75 132/76 94 Room Air 03/31/18 18:33 75 17 121/74 94 Room Air 03/31/18 17:39 80 13 144/77 93 Room Air 03/31/18 17:33 93 Room Air 03/31/18 16:37 36.5 84 18 139/77 94 Room Air Physical Exam GENERAL: Patient is in no acute distress. HEENT: No acute trauma, normocephalic atraumatic, mucous membranes moist, no nasal congestion, no scleral icterus. NECK: No stridor, no adenopathy, no meningismus, trachea is midline. LUNGS: Clear to auscultation bilaterally, no wheeze, no rhonchi, breath sounds equal. HEART: Without murmurs gallops or rubs, regular rate and rhythm. ABDOMEN: Soft, nontender, bowel sounds positive, no hernias, no peritonitis. EXTREMITIES: No cyanosis or edema, full range of motion of all the joints without pain or difficulty, no signs for acute trauma. NEUROLOGIC: Awake and alert, oriented x3 but no facial droop or speech slur. No UE pronator drift or cerebellar dysfunction. No LE drift or cerebellar dysfunction. Cannot elicit reflexes in either leg. The patient is unable to dorsiflex is right foot. SKIN: No rash, no jaundice, no diaphoresis. Medical Decision & Procedures ER Provider Diagnostic Interpretation: Radiology results as stated below per my review and radiologist interpretation: LUMBAR SPINE W/O CONTRAST CLINICAL HISTORY: 67 years-old Male presenting with right leg weak, right leg pain, poss disc. TECHNIQUE: Multisequence, multiplanar MR imaging of the lumbar spine was performed without the use of intravenous contrast. IV contrast: None. COMPARISON: Plain radiographs from 03/24/2018. FINDINGS: Localizer images: Unremarkable. Normal lumbar lordosis. Vertebral bodies maintain normal height, alignment, and bone marrow signal intensity. Mild diffuse intervertebral disc desiccation. Mild multilevel degenerative changes with anterior osteophytosis. These are further detailed below: L1-2: Minimal disc bulge. No significant spinal canal or neural foraminal narrowing. L2-3: Minimal disc bulge without significant spinal canal narrowing. Minimal bilateral neural foraminal narrowing. L3-4: Facet arthropathy and minimal disc bulge results in mild bilateral neural foraminal narrowing. No significant spinal canal narrowing. L4-5: Facet arthropathy results in mild bilateral neural foraminal narrowing. No significant spinal canal narrowing. L5-S1: Facet arthropathy with fluid noted in the facet joints. Moderate bilateral neural foraminal narrowing greater on the left. No significant spinal canal narrowing. Spinal cord ends in good position at L1-2. Cauda equina normal morphology allowing for motion artifact degradation of axial T2-weighted imaging. No paraspinal muscular edema. Subcutaneous edema in the lumbar region. Remaining visualized soft tissue structures within normal limits. IMPRESSION: Mild multilevel degenerative changes with varying degrees of neural foraminal narrowing most severe at L5-S1 further detailed above. No significant spinal canal narrowing. Electronically signed by: Otto Napier M.D. 03/31/2018 8:25 PM Dictated Date/Time: 03/31/2018 8:22 PM BRAIN COMBO CLINICAL HISTORY: 67 years-old Male presenting with right sided weakness, right leg weak, foot drop. TECHNIQUE: Multisequence, multiplanar MR imaging of the brain was performed before and after the administration of intravenous contrast. IV contrast: 15 mL of Gadavist. COMPARISON: Noncontrast CT from 2010. FINDINGS: Proportional ventricular and sulcal prominence, likely age-related parenchymal volume loss. Periventricular and subcortical white matter T2/FLAIR hyperintensity, nonspecific but likely indicative of chronic small vessel ischemic change. No mass effect or midline shift. No restricted diffusion to suggest acute ischemia. No hemorrhage. No extra-axial fluid collection. Partially empty sella. T2 skull base flow voids preserved. No abnormal parenchymal enhancement. Bone marrow signal intensity within the calvarium within normal limits. IMPRESSION: 1. No acute intracranial pathology. No abnormal enhancement. 2. Chronic small vessel ischemic change. Electronically signed by: Otto Napier M.D. 03/31/2018 8:45 PM Dictated Date/Time: 03/31/2018 8:40 PM R VENOUS DOPP LOWER EXT UNILAT CLINICAL HISTORY: 67 years-old Male presenting with right calf pain, h/o dvt. TECHNIQUE: Real-time grayscale and color and spectral Doppler ultrasound imaging of the veins of the right lower extremity was performed. Compression and augmentation were also utilized. COMPARISON: 04/18/2011. FINDINGS: Right: Common femoral vein: Patent. Greater saphenous vein: Patent. Deep femoral vein: Patent. Femoral vein: Patent. Popliteal vein: Patent. Linear echogenic region in the popliteal vein may represent valve or web from prior thrombus. Calf veins: Patent. Other: None. IMPRESSION: No evidence of acute deep venous thrombosis. Electronically signed by: Otto Napier M.D. 03/31/2018 9:09 PM Dictated Date/Time: 03/31/2018 9:08 PM Laboratory Results 03/31/18 17:27 Red Blood Count 4.62, Mean Corpuscular Volume 92.4, Mean Corpuscular Hemoglobin 31.0, Mean Corpuscular Hemoglobin Concent 33.5, Mean Platelet Volume 10.1, Neutrophils (%) (Auto) 66.8, Lymphocytes (%) (Auto) 23.4, Monocytes (%) (Auto) 6.8, Eosinophils (%) (Auto) 2.4, Basophils (%) (Auto) 0.5, Neutrophils # (Auto) 5.46, Lymphocytes # (Auto) 1.92, Monocytes # (Auto) 0.56, Eosinophils # (Auto) 0.20, Basophils # (Auto) 0.04 03/31/18 17:27 Test 03/31/18 17:27 03/31/18 20:00 White Blood Count 8.19 K/uL (4.8-10.8) Red Blood Count 4.62 M/uL (4.7-6.1) Hemoglobin 14.3 g/dL (14.0-18.0) Hematocrit 42.7 % (42-52) Mean Corpuscular Volume 92.4 fL (80-100) Mean Corpuscular Hemoglobin 31.0 pg (25-34) Mean Corpuscular Hemoglobin Concent 33.5 g/dl (32-36) Platelet Count 175 K/uL (130-400) Mean Platelet Volume 10.1 fL (7.4-10.4) Neutrophils (%) (Auto) 66.8 % Lymphocytes (%) (Auto) 23.4 % Monocytes (%) (Auto) 6.8 % Eosinophils (%) (Auto) 2.4 % Basophils (%) (Auto) 0.5 % Neutrophils # (Auto) 5.46 K/uL (1.4-6.5) Lymphocytes # (Auto) 1.92 K/uL (1.2-3.4) Monocytes # (Auto) 0.56 K/uL (0.11-0.59) Eosinophils # (Auto) 0.20 K/uL (0-0.5) Basophils # (Auto) 0.04 K/uL (0-0.2) RDW Standard Deviation 45.6 fL (36.4-46.3) RDW Coefficient of Variation 13.5 % (11.5-14.5) Immature Granulocyte % (Auto) 0.1 % Immature Granulocyte # (Auto) 0.01 K/uL (0.00-0.02) Prothrombin Time 9.8 SECONDS (9.0-12.0) Prothromb Time International Ratio 0.9 (0.9-1.1) Activated Partial Thromboplast Time 22.7 SECONDS (21.0-31.0) Partial Thromboplastin Ratio 0.9 Anion Gap 4.0 mmol/L (3-11) Est Creatinine Clear Calc Drug Dose 116.2 ml/min Estimated GFR () 98.0 Estimated GFR (Non- 84.6 BUN/Creatinine Ratio 25.8 (10-20) Calcium Level 8.8 mg/dl (8.5-10.1) Magnesium Level 2.0 mg/dl (1.8-2.4) Total Bilirubin 0.4 mg/dl (0.2-1) Direct Bilirubin 0.1 mg/dl (0-0.2) Aspartate Amino Transf (AST/SGOT) 31 U/L (15-37) Alanine Aminotransferase (ALT/SGPT) 36 U/L (12-78) Alkaline Phosphatase 77 U/L (45-117) Troponin I < 0.015 ng/ml (0-0.045) Total Protein 6.8 gm/dl (6.4-8.2) Albumin 3.5 gm/dl (3.4-5.0) Thyroid Stimulating Hormone (TSH) 1.730 uIu/ml (0.300-4.500) Free Thyroxine 0.97 ng/dl (0.80-1.60) Urine Color YELLOW Urine Appearance CLEAR (CLEAR) Urine pH 6.5 (4.5-7.5) Urine Specific [place] 1.028 (1.000-1.030) Urine Protein NEG (NEG) Urine Glucose (UA) 2+ (NEG) Urine Ketones NEG (NEG) Urine Occult Blood NEG (NEG) Urine Nitrite NEG (NEG) Urine Bilirubin NEG (NEG) Urine Urobilinogen NEG (NEG) Urine Leukocyte Esterase NEG (NEG) Laboratory results reviewed by me. Medications Administered Medications (Trade) Dose Ordered Sig/Jimbo Route Start Time Stop Time Status Last Admin Dose Admin Oxycodone HCl (Roxicodone Immediate Rel 5MG Home Pack) 1 homepack UD ONCE PO 03/31/18 21:30 03/31/18 21:31 DC 03/31/18 21:46 1 HOMEPACK ECG Per My Interpretation Indication: other (possible stroke) Rate (beats per minute): 76 Rhythm: sinus rhythm Findings: 1st degree AV block, no ectopy, other (nonspecific ST change diffusely, no ST elevation, no PVCs) ED Course 1648: The patient was evaluated in room A2. A complete history and physical exam was performed. 1701: I discussed the patient's case with Dr. Wolf. Dr. Wolf would like an MRI of his back, head, and an ultrasound of his right leg as he has a history of DVTs in that leg 2103: I checked on the patient at this time. He currently has not complaints. 2119: Reevaluated the patient. Discussed results and discharge instructions: He verbalized understanding and agreement. The patient is ready for discharge. 2129: Ordered Oxycodone HCl 1 homepack PO Medical Decision Differential diagnosis: Etiologies such as foot drop, sciatica, lumbar disc disease, electrolyte imbalance, anemia, neuropathy, DVT, stroke, intracranial mass, as well as others were entertained. There is no leukocytosis or concerning anemia. No significant electrolyte abnormality, kidney failure or hepatitis. The patient appears to be in a euthyroid state. Urinalysis does not show infection. EKG shows a sinus rhythm with a first-degree AV block, no acute ischemia. Cardiac enzyme testing 1 is not consistent with acute cardiac injury. Right leg ultrasound does not show evidence for DVT. Lumbar spine MRI shows a lot of arthritis, no large disc herniation or acute surgical process noted. Brain MRI shows no evidence for stroke, mass or bleeding. The patient presents with right leg and foot numbness and what appears to be a right foot drop. He is complaining also of back pain which has been an issue for over a month. Patient was reassured by his testing. I had talked with his family doctor who recommended the MRI and ultrasound studies. The patient is being referred back to his family doctor's office. He will need to see neurology and possibly orthopedics for this foot drop. The cause for the foot drop is unclear but certainly could be secondary to his neuropathy/ diabetes. Further outpatient workup is warranted. Medication Reconcilliation Current Medication List: was personally reviewed by me Blood Pressure Screening Patient's blood pressure: Elevated blood pressure Blood pressure disposition: Elevated BP felt to be situational Consults Time Called: 1700 Consulting Physician: Dr. Wolf Returned Call: 1702 Dr. Wolf would like an MRI of his back, head, and an ultrasound of his right leg as he has a history of DVTs in that leg Impression Primary Impression: Right leg numbness Additional Impressions: Right foot drop Lower back pain Scribe Attestation The scribe's documentation has been prepared under my direction and personally reviewed by me in its entirety. I confirm that the note above accurately reflects all work, treatment, procedures, and medical decision making performed by me. Departure Information Dispostion Home / Self-Care Referrals No Doctor, Assigned (PCP) Forms HOME CARE DOCUMENTATION FORM, IMPORTANT VISIT INFORMATION, WORK / SCHOOL INSTRUCTIONS Patient Instructions My [facility] [employer] Additional Instructions follow with your doctor--call tomorrow for an appt Brain MRI did not show a stroke Spine MRI did not show a large disc ultrasound of the leg did not show a blood clot return if worsening Problem Qualifiers
[2018-03-31 17:19] VITALS: Ht 182.9 cm; Wt 154.6 kg
[2018-03-31 17:33] VITALS: O2SAT 93
[2018-03-31 17:59] LABS: BASO % 0.5 %; BASO ABS # 0.04 K/uL (0-0.2); EOS % 2.4 %; HEMATOCRIT 42.7 % (42-52); HEMOGLOBIN 14.3 g/dL (14.0-18.0); IG# 0.01 K/uL (0.00-0.02); LYMPH % 23.4 %; LYMPH ABS # 1.92 K/uL (1.2-3.4); MEAN CELL VOLUME 92.4 fL (80-100); MEAN CORPUSCULAR HGB CONC 33.5 g/dl (32-36); MEAN PLATELET VOLUME 10.1 fL (7.4-10.4); MONO % 6.8 %; MONO ABS # 0.56 K/uL (0.11-0.59); NEUT % 66.8 %; NEUT ABS # 5.46 K/uL (1.4-6.5); PLATELET COUNT 175 K/uL (130-400); RED CELL DISTRIBUTION WIDTH CV 13.5 % (11.5-14.5); RED CELL DISTRIBUTION WIDTH SD 45.6 fL (36.4-46.3); WHITE BLOOD COUNT 8.19 K/uL (4.8-10.8)
[2018-03-31 18:07] LABS: INR 0.9 (0.9-1.1); PTT PATIENT 22.7 SECONDS (21.0-31.0)
[2018-03-31 18:19] LABS: ALBUMIN 3.5 gm/dl (3.4-5.0); ALT/SGPT 36 U/L (12-78); AST/SGOT 31 U/L (15-37); BLOOD UREA NITROGEN 24 mg/dl (7-18); CALCIUM 8.8 mg/dl (8.5-10.1); CARBON DIOXIDE 31 mmol/L (21-32); CREATININE 0.92 mg/dl (0.60-1.40); GLUCOSE 226 mg/dl (70-99); POTASSIUM 4.2 mmol/L (3.5-5.1); SODIUM 136 mmol/L (136-145)
[2018-03-31 18:33] LABS: ALKALINE PHOSPHATASE 77 U/L (45-117); TOTAL PROTEIN 6.8 gm/dl (6.4-8.2)
--- NOTE | 2018-03-31 20:26 | DIAGNOSTIC IMAGING REPORT ---
LUMBAR SPINE W/O CONTRAST CLINICAL HISTORY: 67 years-old Male presenting with right leg weak, right leg pain, poss disc. TECHNIQUE: Multisequence, multiplanar MR imaging of the lumbar spine was performed without the use of intravenous contrast. IV contrast: None. COMPARISON: Plain radiographs from 03/24/2018. FINDINGS: Localizer images: Unremarkable. Normal lumbar lordosis. Vertebral bodies maintain normal height, alignment, and bone marrow signal intensity. Mild diffuse intervertebral disc desiccation. Mild multilevel degenerative changes with anterior osteophytosis. These are further detailed below: L1-2: Minimal disc bulge. No significant spinal canal or neural foraminal narrowing. L2-3: Minimal disc bulge without significant spinal canal narrowing. Minimal bilateral neural foraminal narrowing. L3-4: Facet arthropathy and minimal disc bulge results in mild bilateral neural foraminal narrowing. No significant spinal canal narrowing. L4-5: Facet arthropathy results in mild bilateral neural foraminal narrowing. No significant spinal canal narrowing. L5-S1: Facet arthropathy with fluid noted in the facet joints. Moderate bilateral neural foraminal narrowing greater on the left. No significant spinal canal narrowing. Spinal cord ends in good position at L1-2. Cauda equina normal morphology allowing for motion artifact degradation of axial T2-weighted imaging. No paraspinal muscular edema. Subcutaneous edema in the lumbar region. Remaining visualized soft tissue structures within normal limits. IMPRESSION: Mild multilevel degenerative changes with varying degrees of neural foraminal narrowing most severe at L5-S1 further detailed above. No significant spinal canal narrowing. Electronically signed by: Otto Napier M.D. 03/31/2018 8:25 PM Dictated Date/Time: 03/31/2018 8:22 PM
[2018-03-31] MEDS ORDERED: GADAVIST IV PRN (20:30)
--- NOTE | 2018-03-31 20:46 | DIAGNOSTIC IMAGING REPORT ---
BRAIN COMBO CLINICAL HISTORY: 67 years-old Male presenting with right sided weakness, right leg weak, foot drop. TECHNIQUE: Multisequence, multiplanar MR imaging of the brain was performed before and after the administration of intravenous contrast. IV contrast: 15 mL of Gadavist. COMPARISON: Noncontrast CT from 2010. FINDINGS: Proportional ventricular and sulcal prominence, likely age-related parenchymal volume loss. Periventricular and subcortical white matter T2/FLAIR hyperintensity, nonspecific but likely indicative of chronic small vessel ischemic change. No mass effect or midline shift. No restricted diffusion to suggest acute ischemia. No hemorrhage. No extra-axial fluid collection. Partially empty sella. T2 skull base flow voids preserved. No abnormal parenchymal enhancement. Bone marrow signal intensity within the calvarium within normal limits. IMPRESSION: 1. No acute intracranial pathology. No abnormal enhancement. 2. Chronic small vessel ischemic change. Electronically signed by: Otto Napier M.D. 03/31/2018 8:45 PM Dictated Date/Time: 03/31/2018 8:40 PM
--- NOTE | 2018-03-31 21:10 | DIAGNOSTIC IMAGING REPORT ---
R VENOUS DOPP LOWER EXT UNILAT CLINICAL HISTORY: 67 years-old Male presenting with right calf pain, h/o dvt. TECHNIQUE: Real-time grayscale and color and spectral Doppler ultrasound imaging of the veins of the right lower extremity was performed. Compression and augmentation were also utilized. COMPARISON: 04/18/2011. FINDINGS: Right: Common femoral vein: Patent. Greater saphenous vein: Patent. Deep femoral vein: Patent. Femoral vein: Patent. Popliteal vein: Patent. Linear echogenic region in the popliteal vein may represent valve or web from prior thrombus. Calf veins: Patent. Other: None. IMPRESSION: No evidence of acute deep venous thrombosis. Electronically signed by: Otto Napier M.D. 03/31/2018 9:09 PM Dictated Date/Time: 03/31/2018 9:08 PM
[2018-03-31] MEDS ORDERED: OXYCODONE IR HOME PACK PO ONE (21:30)
[2018-03-31 21:56] VITALS: BP 143/81; PULSE 74; O2SAT 94
== END 2018-03-31 21:56 | disposition home or self-care (01) ==
LOC: C.EDB 16:35 → C.EDA 21:56
DX: R20.0 Anesthesia of skin (principal); M21.371 Foot drop, right foot; M54.5 Low back pain; N40.0 Benign prostatic hyperplasia without lower urinary tract symptoms; F43.10 Post-traumatic stress disorder, unspecified; E11.9 Type 2 diabetes mellitus without complications; F32.9 Major depressive disorder, single episode, unspecified; K21.9 Gastro-esophageal reflux disease without esophagitis; E66.01 Morbid (severe) obesity due to excess calories; I73.9 Peripheral vascular disease, unspecified; Z79.82 Long term (current) use of aspirin; Z79.4 Long term (current) use of insulin

== ENCOUNTER 2018-04-04 11:11 | Emergency (ER) | payer OTHER ==
[~2018-04-04] VITALS: Ht 182.9 cm; Wt 144.0 kg
[~2018-04-04 11:11] MED LIST changes: -HYT1 PO
[2018-04-04 11:16] VITALS: TEMP 36.7; Ht 182.9 cm; Wt 144.0 kg
[2018-04-04] MEDS ORDERED: DEXAMETHASONE **PF** INJ 10 MG/ML VIAL IM STA (12:39)
[2018-04-04 12:52] VITALS: BP 129/80; PULSE 82; O2SAT 93
[2018-04-04] MEDS ORDERED: PRED20TA2 PO (13:23)
--- NOTE | 2018-04-04 13:26 | EMERGENCY ROOM VISIT NOTE ---
ED Visit Note First contact with patient: 12:17 CHIEF COMPLAINT: Low back pain HISTORY OF PRESENT ILLNESS: This 67-year-old male patient presents to the emergency department, ambulatory, complaining of pain in the low back which began approximately 6 weeks ago. The patient was here 4 days ago for right dropfoot and had MRIs of the low back and had performed which were negative. The patient was discharged with a suspected pinched nerve. He was instructed to follow-up with his PCP, which he states he has done, but states he has not received a phone call back regarding an appointment with neurology or pain management. The pain is now severe, constant, and worse with movement. He states he is having difficulty going from his chair to the kitchen to make food due to pain which he rates as greater than 10/10. He states "I need relief of my pain". He states he does live alone and is afraid to get out of bed. He was previously on prednisone and naproxen. He states the prednisone burst treatment did help, but the naproxen and oxycodone have not improved his symptoms. The patient notes the pain as sharp and a 10/10, but worse with movement. The patient denies any loss of control of their bowel or bladder functions. There has been no leg numbness, but he does describe weakness especially in the right foot which he states is "droopy". No change in sensation. No nausea or vomiting or abdominal pain. No chest pain or shortness of breath. The patient has not had a recent back injuries. No dysuria or increased urinary frequency. REVIEW OF SYSTEMS: A 10 system review of systems was performed with positives and pertinent negatives listed in the history of present illness. All other systems were reviewed and are negative. ALLERGIES: None MEDICATIONS: Naproxen, fluoxetine, Proscar, Zocor, trazodone, Ambien, Lantus, multivitamin, NovoLog, Hytrin, aspirin, Glucophage PMH: Diabetes, hypertension, chronic pain, neuropathy, depression SOCIAL HISTORY: The patient lives locally alone. He denies drug, alcohol, tobacco use. PHYSICAL EXAM: VITALS: Vitals are noted on the nurse's note and reviewed by myself. Vital signs stable. GENERAL: This is a 67-year-old white male, in no acute distress, nondiaphoretic , well-developed well-nourished. SKIN: The skin was without rashes, erythema, edema, or bruising. Capillary refill less than 2 seconds. NECK: Supple without nuchal rigidity. No cervical spine tenderness. No paraspinous muscle tenderness. HEART: Regular rate and rhythm without murmurs gallops or rubs. LUNGS: Clear to auscultation bilaterally without wheezes, rales or rhonchi. ABDOMEN: Positive bowel sounds x 4. Normal tympanic percussion. Soft, nontender, without masses or organomegaly. Keith sign negative. MUSCULOSKELETAL: No muscle atrophy, erythema, or edema noted of the back. There is moderate tenderness over the lumbar spinous processes. There is significant tenderness over the paraspinous muscles bilaterally. There is no tenderness over the thoracic spine or paraspinous muscles. There are no muscle spasms present. The patient is slow to move around with maximum tenderness with position changes. The patient refused straight leg raise test. NEURO: Patient was alert and oriented to person place and time. Normal sensation to light and sharp touch. Deep tendon reflexes 2+ in the lower extremities. Dorsalis pedis pulse 2+ bilaterally. Strength 5/5 and equal in the bilateral lower extremities. EMERGENCY DEPARTMENT COURSE: The patient was seen and evaluated as above. Past medical records reviewed. The patient did recently have an MRI of the brain and L-spine. He had labs performed a few days ago. His symptoms are consistent with his typical low back pain at this time. He is not exhibiting the foot drop he was exhibiting previously, but continues to have some weakness in the right lower extremity. His symptoms are consistent with a nerve impingement/neuropathy. He was given 10 mg Decadron IM. He requests multiple times for prednisone to go home with. While in the emergency department, he received a phone call from Dr. Velasco's office, offering him an appointment was Saturday at 1145. I did speak with case finishing machine adjuster who worked with the patient to establish his appointment and were able to contact [facility] primary care office to determine the plan of care. The case finishing machine adjuster did work to help the patient with help obtaining meals at home, as he is having difficulty cooking for himself. The patient will be treated with a short burst of prednisone and was encouraged to follow-up outpatient with the PCP and follow- up with pain management on Saturday. The patient was agreeable and thankful for the assistance. Discharge instructions reviewed, the patient was discharged home in good condition. I did discuss the case with Dr. Kincaid. He was agreeable to the plan of care. I attest that I have personally reviewed the patient's current medication list. Patient was found to have normal blood pressure on screening and does not require follow-up. Etiologies such as lumbago, sciatica, cauda equina, epidural abscess, osteomyelitis, fracture, aortic disease, metastatic disease, infection, renal colic, gastrointestinal, as well as others were entertained. DIAGNOSIS: Low back pain, neuropathy The chart was completed utilizing [employer] voice recognition software. Grammatical errors, random word insertions, pronoun errors, and incomplete sentences are an occasional consequence of this system due to software limitations, ambient noise, and hardware issues. Any formal questions or concerns about the content, text, or information contained within the body of this dictation should be directly addressed to the provider for clarification. Problem List Medical Problems: (1) Benign prostatic hypertrophy without outflow obstruction Status: Chronic (2) Deep venous thrombosis of lower extremity Status: Resolved (3) Depression Status: Chronic (4) Gastroesophageal reflux disease Status: Chronic (5) Localized, primary osteoarthritis of the lower leg Status: Chronic (6) Morbid obesity Status: Chronic (7) Peripheral vascular disease Status: Chronic Current/Historical Medications Scheduled Aspirin (Aspirin Ec), 81 MG PO DAILY Finasteride (Proscar), 5 MG PO DAILY Fluoxetine Hcl (Pmdd) (Fluoxetine), 1 CAP PO DAILY Gabapentin (Neurontin), 600 MG PO TID Insulin Aspart (Novolog), 1 DOSE SC UD Insulin Glargine (Lantus), 40 UNITS SC QPM Metformin Hcl (Glucophage), 1,000 MG PO BIDM Multivitamin (Multivitamin), 1 TAB PO DAILY Naproxen (Naprosyn), 1 TAB PO BID Prednisone (Prednisone Tab), 2 TAB PO DAILY Simvastatin (Zocor), 40 MG PO QPM Terazosin Hcl (Hytrin), 5 MG PO HS Trazodone Hcl (Trazodone), 50 MG PO HS Scheduled PRN Zolpidem Tartrate (Ambien), 10 MG PO HS PRN for Sleep Allergies Coded Allergies: No Known Allergies (Unverified , 04/04/18) Vital Signs Date Time Temp Pulse Resp B/P (MAP) Pulse Ox O2 Delivery O2 Flow Rate FiO2 04/04/18 12:52 82 129/80 93 Room Air 04/04/18 12:45 87 154/86 91 04/04/18 11:16 36.7 96 16 127/84 94 Room Air Laboratory Results Test 04/04/18 13:38 Bedside Glucose 199 mg/dl (70-99) Medications Administered Medications (Trade) Dose Ordered Sig/Jimbo Route Start Time Stop Time Status Last Admin Dose Admin Dexamethasone Sodium Phosphate (Dexamethasone Inj Pf) 10 mg NOW STAT IM 04/04/18 12:39 04/04/18 12:40 DC 04/04/18 12:52 10 MG Departure Information Impression Primary Impression: Low back pain Additional Impression: Neuropathy Dispostion Home / Self-Care Condition GOOD Prescriptions Prednisone (Prednisone Tab) 20 Mg Tab 2 TAB PO DAILY for 5 Days, #10 TAB Prov: Evelyne Ramirez, GARRY 04/04/18 Referrals Jeb Wolf MD (PCP) Ramiro Velasco M.D. You have an appointment with Dr. Velasco on Sunday, April 08, 2018 at 11:30. Forms HOME CARE DOCUMENTATION FORM, IMPORTANT VISIT INFORMATION Patient Instructions ED Neuropathy Peripheral, [facility] Additional Instructions You have been treated in the Emergency Department for Back Pain. You have been prescribed Prednisone. This is a steroid which will help decrease your inflammation, redness, and itch. Take this medicine as prescribed. Take the ENTIRE 5 day course. It is best to take steroids early in the morning as PM dosing can affect your sleeping patterns. No NSAIDs while taking steroids. For pain control, you can use the following [id number] medicines (if >12 yo): Acetaminophen(Tylenol) may be used for fever or pain. Use 1000mg every six hours as needed. Avoid using more than 3000mg in a 24 hour period. If this is an acute injury, ice can be applied to the area of pain for the first 3 days to help decrease pain and inflammation. After the first 3 days, a heating pad can be used over the area for continued soothing relief. You should schedule a follow-up appointment in 2-3 days with your Primary Care Provider for further evaluation and treatment of your back pain. Keep your follow-up with Dr. Velasco's office on Saturday. Return to the Emergency Department if your current symptoms worsen despite treatment course outlined above, or if you develop any of the following symptoms : intractable pain despite aforementioned treatment course, loss of control of your bowel or bladder, numbness or tingling in your groin, or development of a fever. Problem Qualifiers Primary Impression: Low back pain Chronicity: acute Back pain laterality: midline Sciatica presence: unspecified whether sciatica present Qualified Codes: M54.5 - Low back pain
--- NOTE | 2018-04-05 00:05 | EMERGENCY ROOM VISIT NOTE ---
ED Visit Note First contact with patient: 12:17 I reviewed the patient's past medical history, medications, and visit nursing notes. I discussed the case with the physician regulatory assistant and agree with the findings and plan as documented in the physician assistants note.
== END 2018-04-04 14:02 | disposition home or self-care (01) ==
LOC: C.EDB 11:12 → C.EDC 14:02
DX: M54.5 Low back pain (principal); E11.40 Type 2 diabetes mellitus with diabetic neuropathy, unspecified; Z79.4 Long term (current) use of insulin; Z79.899 Other long term (current) drug therapy; Z79.82 Long term (current) use of aspirin; Z79.84 Long term (current) use of oral hypoglycemic drugs; G89.29 Other chronic pain; F32.9 Major depressive disorder, single episode, unspecified; N40.0 Benign prostatic hyperplasia without lower urinary tract symptoms; Z86.718 Personal history of other venous thrombosis and embolism; K21.9 Gastro-esophageal reflux disease without esophagitis; I73.9 Peripheral vascular disease, unspecified; E66.01 Morbid (severe) obesity due to excess calories

== ENCOUNTER 2019-08-17 19:04 | Observation (INO) ==
[2019-08-17] MEDS ORDERED: SODIUM CHLORIDE 0.9% 1000ML 1,000 ML IV SCH (20:15)
--- NOTE | 2019-08-17 20:21 | XRay Report ---
XR chest 1V portable CLINICAL HISTORY: 68 years-old Male presenting with weakness. TECHNIQUE: Portable upright AP view of the chest was obtained. COMPARISON: 10/06/[address] from 06/01/2019. FINDINGS: Atherosclerosis of the aortic arch. Cardiac silhouette enlarged. No focal opacity. No large effusion or pneumothorax. Degenerative changes of the thoracic spine. Degenerative changes of the left glenohu meral joint. Upper abdomen normal. IMPRESSION: 1. Cardiomegaly. No other convincing evidence of acute cardiopulmonary disease. Electronically signed by: Otto Napier M.D. 08/17/2019 8:18 PM
[2019-08-17] MEDS ORDERED: SODIUM CHLORIDE 0.9% 1000ML 500 ML IV ONE (20:30)
[2019-08-17 20:42] LABS: Basophils # (auto) 0.06 K/uL (0-0.2); Basophils % (auto) 0.5 %; Eosinophils # (auto) 0.05 K/uL (0-0.5); Eosinophils % (auto) 0.4 %; Hematocrit (blood only) 53.9 % (42-52); Hemoglobin 18.8 g/dL (14.0-18.0); Immature Granulocytes # (auto) 0.02 K/uL (0.00-0.02); Immature Granulocytes % (auto) 0.2 %; Lymphocytes # (auto) 1.86 K/uL (1.2-3.4); Lymphocytes % (auto) 15.9 %; Mean Corpuscular Hemoglobin 32.5 pg (25-34); Mean Corpuscular Hgb Conc 34.9 g/dL (32-36); Mean Corpuscular Volume 93.3 fL (80-100); Mean Platelet Volume 9.9 fL (7.4-10.4); Monocytes # (auto) 1.03 K/uL (0.11-0.59); Monocytes % (auto) 8.8 %; Neutrophils # (auto) 8.69 K/uL (1.4-6.5); Neutrophils % (auto) 74.2 %; Platelet Count 211 K/uL (130-400); RDW Coefficient of Variation 14.3 % (11.5-14.5); RDW Standard Deviation 47.8 fL (36.4-46.3); Red Blood Count 5.78 M/uL (4.7-6.1); White Blood Count 11.71 K/uL (4.8-10.8)
[2019-08-17 21:06] LABS: Albumin Level 3.7 gm/dl (3.4-5.0); BUN Creatinine Ratio 20.1 (10-20); Calcium 9.7 mg/dl (8.5-10.1); Creatinine Clr Calc Pharmacy 103.4 ml/min; Est GFR (African American) 94.8; Est GFR (Non-African American) 81.8; Magnesium 1.9 mg/dl (1.8-2.4); Potassium 3.9 mmol/L (3.5-5.1)
--- NOTE | 2019-08-17 21:41 | CT Scan Report ---
CT head/brain wo con CLINICAL HISTORY: 68 years-old Male presenting with AMS. TECHNIQUE: Multidetector CT imaging of the head was performed without the use of intravenous contrast . IV contrast: None. One or more dose lowering techniques were used consistent with the principles of ALARA (as low as reasonably achievable), including automatic exposure control, mA or kV adjustment t o individual patient size, and/or use of iterative reconstruction. COMPARISON: MRI brain from 03/31/[address] head from 09/03/2011. CT DOSE (mGy.cm): The estimated cumulative dose is 638.56 mGycm. FINDINGS: Fire Extinguisher Tester topogram: Unremarkable. Ventricles and sulci normal in size. No hemorrhage. Brain parenchyma normal in appearance with preser phuong alonzo-white differentiation. No acute territorial infarct. No mass effect or midline shift. No ext ra-axial fluid collection. Paranasal sinuses and mastoid air cells clear. Calvarium intact. IMPRESSION: 1. No acute intracranial abnormality. Electronically signed by: Otto Napier M.D. 08/17/2019 9:40 PM
[2019-08-17 21:43] LABS: Albumin Globulin Ratio 0.9 (0.9-2); Bilirubin,Total 0.8 mg/dl (0.2-1); Globulin 4.2 gm/dl (2.5-4.0); Thyroid Stimulating Hormone 3.04 uIu/ml (0.300-4.500); Total Protein 7.9 gm/dl (6.4-8.2); Troponin I 0.064 ng/ml (0-0.045)
[2019-08-17] MEDS ORDERED: ASPIRIN CHEW 324 MG PO STA (21:45)
--- NOTE | 2019-08-17 23:03 | Emergency Department Note ---
Entered by Margarito Bradley acting as a scribe for Nilda Owen MD History of Present Illness General Chief complaint: Illness Stated complaint: ILLNESS History of Present Illness Provider complaint: altered mental status Onset (ago): minute(s) (prior to arrival) Location: head Severity: similar to prior episodes Quality: + other (altered mental status) Associated symptoms: + other (Negative abominal pain; Negative diarrhea; Negative vision impairment); no chest pain, no headaches and no shortness of breath The patient is a 68 year old female who presents to the Emergency Room with complaints of an altered mental status that started prior to arrival. The patient expresses that he feels "out of sorts" and has difficulty explaining this sensation. The patient states that he is dizzy and nauseous. The patient denies shortness of breath, chest pain, abdominal pain, nausea, vomiting, diarrhea, headache or vision impairment. The patient is unsure if anything exacerbates his symptoms. The patient explains that she is unsure whether he ate today and was having difficulty remembering how to turn on the TV. The patient is unaware if he took his medication or checked his blood pressure today. The patient notes that he had a similar episode four years ago however his symptoms resolved on his own. Home Medications Home Medications Medication Instructions Recorded Confirmed Type Lantus U-100 Insulin 40 unit SUBCUT 08/04/18 08/17/19 History aspirin [Aspir-81] 81 mg PO QAM 08/04/18 08/17/19 History finasteride 5 mg PO QAM 08/04/18 08/17/19 History fluoxetine 20 mg PO QAM 08/04/18 08/17/19 History losartan 25 mg PO QPM 08/04/18 08/17/19 History metformin 1,000 mg PO BID 08/04/18 08/17/19 History multivitamin 1 tab PO QAM 08/04/18 08/17/19 History terazosin 5 mg PO 08/04/18 08/17/19 History trazodone 100 mg PO 08/04/18 08/17/19 History silver sulfadiazine 1 % topical 1 appln TOP BID #25 gm 12/22/18 08/17/19 Rx cream gabapentin 600 mg PO TID 08/17/19 08/17/19 History Allergies Allergy/AdvReac Type Severity Reaction Status Date / Time No Known Allergies Allergy Verified 08/17/19 23:25 Past Med/Surg History Medical History Obesity, morbid (Chronic) Chronic post-traumatic stress disorder (PTSD) (Chronic) Diabetes PTSD (post-traumatic stress disorder) (Chronic) BPH (benign prostatic hyperplasia) Diabetes mellitus, type 2 History of right foot drop DUE TO PINCHED NERVE Hx of deep venous thrombosis YRS AGO DUE TO INACTIVITY-TREATED WITH THINNER AND ONLY ASPIRIN NOW Hyperlipidemia Hypertension Surgical History History of herniorrhaphy UMBILICAL Hx of cataract surgery RIGHT Knee joint replacement status R/L Family History Grandfather Family history of diabetes mellitus Social History Preferred Language: Arabic Communication Ability: Effective [employer] Supervisor Required: No Beliefs That Will Affect Care: None Current Living Situation: Alone Feels Safe at Home: Yes Smoking Status: Current every day smoker Tobacco Type: cigarettes ; Cigarettes Per Day: 1/2 pack per day. ; Second Hand Exposure: No ; Hx Alcohol Use: Yes Alcohol type: wine Hx Substance Use: No Review of Systems See HPI for pertinent positives & negatives. and A total of 10 systems reviewed and were otherwise negative Physical Exam Vital Signs Vital Signs - 24 hr 08/17/19 19:20 08/17/19 20:24 08/17/19 21:13 Temperature 36.6 C Temperature Source Oral Sepsis Recent Fever Within 48 Hours No Sepsis Action Taken by Nursing No Action Required Pulse Rate 111 H Pulse Rate [Finger] 91 H Respiratory Rate 20 18 Blood Pressure 170/92 H Blood Pressure [Left Arm] 130/68 Blood Pressure Mean 118 Blood Pressure Mean [Left Arm] 88 Pulse Oximetry 96 93 95 Oxygen Delivery Method Room Air Room Air Room Air 08/17/19 23:30 Temperature Temperature Source Sepsis Recent Fever Within 48 Hours Sepsis Action Taken by Nursing Pulse Rate Pulse Rate [Finger] 94 H Respiratory Rate 18 Blood Pressure Blood Pressure [Left Arm] 142/93 H Blood Pressure Mean Blood Pressure Mean [Left Arm] 109 Pulse Oximetry 95 Oxygen Delivery Method Room Air Vital signs reviewed. General: Well-appearing 68 year old male, in no significant distress. HEENT: No scleral icterus, PERRLA, neck supple. Atraumatic. Cardiovascular: Regular rate and rhythm, no extra sounds. Pulmonary: Clear to auscultation bilaterally, normal work of breathing. Abdomen: Soft, nontender, nondistended, positive bowel sounds. Musculoskeletal: Atraumatic, no peripheral edema. Neurologic: Patient awake alert and oriented x 3, full strength in all 4 extremities. Cranial nerves 2 through 12 grossly intact. Intact finger to nose. Skin: Warm, dry, no rash Course 1950: Past medical records reviewed. The patient was evaluated in room B6. A complete history and physical exam was performed. 2318: I reviewed the patient's case with Dr. Ng, [facility] Hospitalist. He will evaluate the patient for further management. Consultations Consultation #1: I reviewed the patient's case with Dr. Ng, [facility] Hospitalist. He will evaluate the patient for further management. Time: 23:18 Administered Medications Discontinued Medications Aspirin (Aspirin) 324 mg PO NOW [facility] Stop: 08/17/19 21:46 Last Admin: 08/17/19 21:50 Dose: 324 mg Documented by: [id number] Aspirin (Ecotrin Ectab) 81 mg PO QAM [facility] Stop: 09/17/19 08:59 Last Admin: 08/18/19 08:22 Dose: 81 mg Documented by: [id number] Finasteride (Proscar) 5 mg PO QAM [facility] Stop: 09/17/19 08:59 Last Admin: 08/18/19 08:22 Dose: 5 mg Documented by: [id number] Fluoxetine HCl (Prozac) 20 mg PO QAM [facility] Stop: 09/17/19 08:59 Last Admin: 08/18/19 08:22 Dose: 20 mg Documented by: [id number] Gabapentin (Neurontin) 600 mg PO TID [facility] Stop: 09/17/19 08:59 Last Admin: 08/18/19 14:54 Dose: 600 mg Documented by: [id number] Admin: 08/18/19 08:22 Dose: 600 mg Documented by: [id number] Gadobutrol (Gadavist 65ml) 13.8 ml IV ONCE PRN PRN Reason: Interaction Checking Stop: 08/22/19 04:51 Last Admin: 08/18/19 04:34 Dose: 13.8 ml Documented by: [id number] Heparin Sodium (Porcine) (Heparin Sodium (Porcine)) 5,000 units SQ Q8 [facility] Stop: 09/17/19 05:59 Last Admin: 08/18/19 14:45 Dose: Not Given Documented by: [id number] Admin: 08/18/19 05:04 Dose: 5,000 units Documented by: [id number] Cosigned by: [id number] Sodium Chloride (Nss 1000ml) 1,000 mls @ 125 mls/hr IV .Q8H SHAN Stop: 08/18/19 04:14 Last Infusion: 08/18/19 07:27 Dose: 0 mls/hr Documented by: [id number] Infusion: 08/18/19 03:15 Dose: 0 mls/hr Documented by: [id number] Admin: 08/17/19 20:27 Dose: 125 mls/hr Documented by: [id number] Sodium Chloride (Nss 1000ml) 500 mls @ 999 mls/hr IV .Q31M ONE Stop: 08/17/19 21:00 Last Infusion: 08/17/19 21:16 Dose: 0 mls/hr Documented by: [id number] Admin: 08/17/19 20:40 Dose: 999 mls/hr Documented by: [id number] Insulin Aspart (Novolog Flexpen) 0 units SC ACHS SHAN Stop: 09/17/19 07:29 Last Admin: 08/18/19 17:34 Dose: 2 units Documented by: [id number] Cosigned by: [id number] Admin: 08/18/19 12:21 Dose: 2 units Documented by: [id number] Cosigned by: [id number] Admin: 08/18/19 08:24 Dose: 1 units Documented by: [id number] Cosigned by: [id number] Insulin Glargine (Lantus Solostar Pen) 40 units SC HS [facility] Stop: 09/17/19 20:59 Last Admin: 08/18/19 03:17 Dose: 40 units Documented by: [id number] Cosigned by: [id number] Medical Decision Making Differential Diagnosis Differential diagnosis: Etiologies such as metabolic, infection, hypo/hyperglycemia, electrolyte abnormalities, cardiac sources, intracerebral event, toxicologic, neurologic, as well as others were entertained. Medical Records Attestation: I reviewed the patient's medical records. Home Medications Current Medication List: was personally reviewed by me Laboratory Data Attestation: I reviewed the patient's lab results. Result diagrams: 08/18/19 05:25 08/18/19 05:25 Lab Results 08/17/19 08/17/19 08/17/19 Range/Units 20:08 20:14 20:14 WBC 11.71 H (4.8-10.8) K/uL RBC 5.78 (4.7-6.1) M/uL Hgb 18.8 H (14.0-18.0) g/dL Hct 53.9 H (42-52) % MCV 93.3 (80-100) fL MCH 32.5 (25-34) pg MCHC 34.9 (32-36) g/dL RDW Std Deviation 47.8 H (36.4-46.3) fL RDW Coeff of Nevin 14.3 (11.5-14.5) % Plt Count 211 (130-400) K/uL MPV 9.9 (7.4-10.4) fL Immature Gran % (Auto) 0.2 % Neut % (Auto) 74.2 % Lymph % (Auto) 15.9 % [place] % (Auto) 8.8 % Eos % (Auto) 0.4 % Baso % (Auto) 0.5 % Immature Gran # (Auto) 0.02 (0.00-0.02) K/uL Neut # (Auto) 8.69 H (1.4-6.5) K/uL Lymph # (Auto) 1.86 (1.2-3.4) K/uL [place] # (Auto) 1.03 H (0.11-0.59) K/uL Eos # (Auto) 0.05 (0-0.5) K/uL Baso # (Auto) 0.06 (0-0.2) K/uL Sodium (136-145) mmol/L Potassium (3.5-5.1) mmol/L Chloride (98-107) mmol/L Carbon Dioxide (21-32) mmol/L Anion Gap (3-11) BUN (7-18) mg/dl Creatinine (0.6-1.4) mg/dl Est Cr Clr Drug Dosing ml/min Est GFR ( Amer) Est GFR (Non-Af Amer) BUN/Creatinine Ratio (10-20) Glucose (70-99) mg/dl POC Glucose 209 H (70-99) Calcium (8.5-10.1) mg/dl Magnesium Cancelled Total Bilirubin (0.2-1) mg/dl AST (15-37) U/L ALT (12-78) U/L Alkaline Phosphatase (45-117) U/L Troponin I (0-0.045) ng/ml Total Protein (6.4-8.2) gm/dl Albumin (3.4-5.0) gm/dl Globulin (2.5-4.0) gm/dl Albumin/Globulin Ratio (0.9-2) TSH (0.300-4.500) uIu/ml Urine Color Urine Appearance (Clear) Urine pH (4.5-7.5) Ur Specific [place] (1.000-1.030) Urine Protein (Negative) Urine Glucose (UA) (Negative) Urine Ketones (Negative) Urine Blood (Negative) Urine Nitrite (Negative) Urine Bilirubin (Negative) Urine Urobilinogen (Negative) Ur Leukocyte Esterase (Negative) 08/17/19 08/17/19 08/17/19 Range/Units 20:14 20:14 23:24 WBC (4.8-10.8) K/uL RBC (4.7-6.1) M/uL Hgb (14.0-18.0) g/dL Hct (42-52) % MCV (80-100) fL MCH (25-34) pg MCHC (32-36) g/dL RDW Std Deviation (36.4-46.3) fL RDW Coeff of Nevin (11.5-14.5) % Plt Count (130-400) K/uL MPV (7.4-10.4) fL Immature Gran % (Auto) % Neut % (Auto) % Lymph % (Auto) % [place] % (Auto) % Eos % (Auto) % Baso % (Auto) % Immature Gran # (Auto) (0.00-0.02) K/uL Neut # (Auto) (1.4-6.5) K/uL Lymph # (Auto) (1.2-3.4) K/uL [place] # (Auto) (0.11-0.59) K/uL Eos # (Auto) (0-0.5) K/uL Baso # (Auto) (0-0.2) K/uL Sodium 138 (136-145) mmol/L Potassium 3.9 (3.5-5.1) mmol/L Chloride 102 (98-107) mmol/L Carbon Dioxide 22 (21-32) mmol/L Anion Gap 14.0 H (3-11) BUN 19 H (7-18) mg/dl Creatinine 0.94 (0.6-1.4) mg/dl Est Cr Clr Drug Dosing 103.4 ml/min Est GFR ( Amer) 94.8 Est GFR (Non-Af Amer) 81.8 BUN/Creatinine Ratio 20.1 H (10-20) Glucose 215 H (70-99) mg/dl POC Glucose (70-99) Calcium 9.7 (8.5-10.1) mg/dl Magnesium 1.9 Total Bilirubin 0.8 (0.2-1) mg/dl AST 38 H (15-37) U/L ALT 36 (12-78) U/L Alkaline Phosphatase 117 (45-117) U/L Troponin I 0.064 H* Cancelled (0-0.045) ng/ml Total Protein 7.9 (6.4-8.2) gm/dl Albumin 3.7 (3.4-5.0) gm/dl Globulin 4.2 H (2.5-4.0) gm/dl Albumin/Globulin Ratio 0.9 (0.9-2) TSH 3.040 (0.300-4.500) uIu/ml Urine Color Yellow Urine Appearance Clear (Clear) Urine pH 5.0 (4.5-7.5) Ur Specific [place] 1.042 H (1.000-1.030) Urine Protein Negative (Negative) Urine Glucose (UA) 3+ H (Negative) Urine Ketones 3+ H (Negative) Urine Blood Negative (Negative) Urine Nitrite Negative (Negative) Urine Bilirubin Negative (Negative) Urine Urobilinogen Negative (Negative) Ur Leukocyte Esterase Negative (Negative) Imaging Data Radiologist's Impression: Radiology results as stated below per my review and the radiologist's interpretation: XR chest 1V portable CLINICAL HISTORY: 68 years-old Male presenting with weakness. TECHNIQUE: Portable upright AP view of the chest was obtained. COMPARISON: 10/06/[address] from 06/01/2019. FINDINGS: Atherosclerosis of the aortic arch. Cardiac silhouette enlarged. No focal opacity. No large effusion or pneumothorax. Degenerative changes of the thoracic spine. Degenerative changes of the left glenohumeral joint. Upper abdomen n ormal. IMPRESSION: 1. Cardiomegaly. No other convincing evidence of acute cardiopulmonary disease. Electronically signed by: tOto Napier M.D. 08/17/2019 8:[address] head/brain wo con CLINICAL HISTORY: 68 years-old Male presenting with AMS. TECHNIQUE: Multidetector CT imaging of the head was performed without the use of intravenous contrast. IV contrast: None. One or more dose lowering techniques were used consistent with the principles of ALARA (as low as reasonably achievable), including automatic exposure control, mA or kV adjustment to ind ividual patient size, and/or use of iterative reconstruction. COMPARISON: MRI brain from 03/31/[address] head from 09/03/2011. CT DOSE (mGy.cm): The estimated cumulative dose is 638.56 mGycm. FINDINGS: Head Of Science topogram: Unremarkable. Ventricles and sulci normal in size. No hemorrhage. Brain parenchyma normal in appearance with preserved alonzo-white differentiation. No acute territorial infarct. No mass effect or midline shift. No extra-axial fluid collection. Paranasal sinuses and mastoid air cells clear. Calvarium intact. IMPRESSION: 1. No acute intracranial abnormality. Electronically signed by: Otto Napier M.D. 08/17/2019 9:40 PM ECG Data Attestation: I personally reviewed and interpreted this ECG as follows: Rate (beats per minute): 106 Rhythm: sinus tachycardia Findings: + other (Nonspecific intraventricular conduction delay; T wave abnormality in the lateral leadswith a left axis deviation ) and + left axis deviation Blood Pressure Blood Pressure Findings: Normal blood pressure MDM Narrative This patient was evaluated and appeared to be in no significant distress. IV access was obtained and laboratory work was drawn. The patient was placed on the media monitor. An EKG reveals a sinus tachycardia, left axis deviation and a nonspecific intraventricular conduction delay. Patient's blood pressure is noted to be stable. Chest x-ray is negative for acute pathology. CT scan of the head was performed and is negative for acute intracranial pathology. Patient's troponin is 0.064. This is a change from his history. IV hydration was initiated gently along with p.o. aspirin administered. The etiology of the patient's symptoms is not clear. There is concern given the patient's extensive past medical history that he may have suffered a cardiac event or TIA. The [facility] hospitalist has been consulted for further evaluation and management. Patient is aware of the plan and agrees. Impression & Plan Elevated troponin, TIA (transient ischemic attack) Discharge Plan Visit Data *Final* Discharge Date/Time: 08/18/19 01:28 Chief Complaint: Illness Stated Complaint: ILLNESS ED Provider: Nilda Owen Discharge Problem: Elevated troponin, TIA (transient ischemic attack) Patient Disposition: Admitted As Inpatient Discharge Instructions Interventions: ED Discharge Assessment Last Done: 08/18/19 01:28 The scribe's documentation has been prepared under my direction and personally reviewed by me in its entirety. I confirm that the note above accurately reflects all work, treatment, procedures, and medical decision making performed by me.
[2019-08-17 23:48] LABS: Appearance Urine Clear (Clear); Bilirubin Urine Negative (Negative); Blood Urine Negative (Negative); Color Urine Yellow; Glucose Urine UA 3+ (Negative); Leukocyte Esterase Urine Negative (Negative); Nitrite Urine Negative (Negative); Protein Urine Negative (Negative); Specific Gravity Urine 1.042 (1.000-1.030); Urobilinogen Urine Negative (Negative)
[2019-08-17 23:51] LABS: Ketones Urine 3+ (Negative)
[2019-08-18] MEDS ORDERED: CARBOHYDRATES FOR HYPOGLYCEMIA PO PRN (02:11)
[2019-08-18] MEDS ORDERED: ONDANSETRON INJ 2 MG/ML 2 ML VIAL IV PRN (02:11)
[2019-08-18] MEDS ORDERED: ACETAMINOPHEN 325 MG TAB PO PRN (02:11)
[2019-08-18] MEDS ORDERED: DEXTROSE 50% 50 ML SYRINGE IV PRN (02:11)
[2019-08-18] MEDS ORDERED: GLUCOSE 40% GEL 15 GM TUBE PO PRN (02:11)
[2019-08-18] MEDS ORDERED: GLUCAGON FOR INJ 1 MG VIAL SQ PRN (02:11)
[2019-08-18] MEDS ORDERED: GLUCOSE 10 TABS/TUBE PO PRN (02:11)
--- NOTE | 2019-08-18 03:22 | History & Physical Report ---
Date of Service August 18, 2019 Assessment & Plan (1) TIA (transient ischemic attack): Symptoms have resolved No swallowing issues MRI and MRA brain MRA neck echocardiogram PT/OT DVT prophylaxis = SCDs and sub-q heparin. (2) Elevated troponin: Had no chest pain Will trend trops (3) Diabetes mellitus: Continue Lantus Add sliding scale insulin coverage. History of Present Illness 68 y/o male presented to the ED with dizziness and nausea prior to arrival that was associated with a sense of altered mental status. The patient described this sensation as being "out of sorts" and has difficulty explaining the sensation. The patient denies shortness of breath, chest pain, abdominal pain, nausea, vomiting, diarrhea, headache or visual impairment. He reported not remembering how to turn on the TV or what he had to eat that day. He did have a similar symptom constellation 4 years prior that resolved just like today. Primary Care Provider: Daquan Jay Allergies Allergy/AdvReac Type Severity Reaction Status Date / Time No Known Allergies Allergy Verified 08/17/19 23:25 Home Medications Home Medications Medication Instructions Recorded Confirmed Type Lantus U-100 Insulin 40 unit SUBCUT 08/04/18 08/17/19 History aspirin [Aspir-81] 81 mg PO QAM 08/04/18 08/17/19 History finasteride 5 mg PO QAM 08/04/18 08/17/19 History fluoxetine 20 mg PO QAM 08/04/18 08/17/19 History losartan 25 mg PO QPM 08/04/18 08/17/19 History metformin 1,000 mg PO BID 08/04/18 08/17/19 History multivitamin 1 tab PO QAM 08/04/18 08/17/19 History terazosin 5 mg PO HS 08/04/18 08/17/19 History trazodone 100 mg PO HS 08/04/18 08/17/19 History silver sulfadiazine 1 % topical 1 appln TOP BID #25 gm 12/22/18 08/17/19 Rx cream gabapentin 600 mg PO TID 08/17/19 08/17/19 History Past Med/Surg History Medical History Obesity, morbid (Chronic) Chronic post-traumatic stress disorder (PTSD) (Chronic) Diabetes PTSD (post-traumatic stress disorder) (Chronic) BPH (benign prostatic hyperplasia) Diabetes mellitus, type 2 History of right foot drop DUE TO PINCHED NERVE Hx of deep venous thrombosis YRS AGO DUE TO INACTIVITY-TREATED WITH THINNER AND ONLY ASPIRIN NOW Hyperlipidemia Hypertension Surgical History History of herniorrhaphy UMBILICAL Hx of cataract surgery RIGHT Knee joint replacement status R/L Family History Grandfather Family history of diabetes mellitus Social History Preferred Language: Panamanian Communication Ability: Effective [employer] Aide Required: No Beliefs That Will Affect Care: None Current Living Situation: Alone Other Information That Helps Us Care for You: No Feels Safe at Home: Yes Safety Concerns: Feels Safe At This Time Smoking Status: Current every day smoker Tobacco Type: cigarettes ; Cigarettes Per Day: 1/2 pack per day. ; Do You Dip or Chew Tobacco: No ; Second Hand Exposure: No ; Hx Alcohol Use: Yes Alcohol type: wine Hx Substance Use: No Review of Systems Review of Systems: NEEDS EDITING Constitutional- no fever; no weight loss Eyes- no acute visual changes ENT- no sinus drainage; no pharyngitis Pulmonary- no cough, no wheezing, no shortness of breath Cardiac- no chest pain, no palpitations, no orthopnea, no dependent edema GI- no vomiting, no diarrhea, no melena, no hematochezia - no dysuria, no hematuria Musculoskeletal- no arthralgias, no myalgias Derm- no rashes, no new skin lesions, no changing skin lesions Hematologic- no unusual bruising, no unusual bleeding Lymphatics- no adenopathy Endocrine- no polyuria or polydipsia; no heat or cold intolerance Neuro- no headaches, no focal neurologic symptoms Psych- no anxiety, no depression Physical Exam Physical Exam: NEEDS EDITING General- adult male, NAD Head- atraumatic Eyes- PERRL, EOMI, anicteric ENT- oropharynx clear Neck- supple, no JVD, no adenopathy, no thyromegaly. Lungs- clear to auscultation, No wheezes, rhonchi, or crackles. Heart- regular rhythm; no murmur, no gallop, no rub appreciated Abdomen- normal bowel sounds, soft, nontender. Extremities- no pretibial edema, no calf tenderness. Neuro- alert, oriented x 3; PERRL, EOMI; no dysarthria; Non-focal, bottle gauger II-XII grossly intact Skin- warm & dry Results & Data Vital Signs (Past 12 Hours) Vital Signs Temp Pulse Pulse Resp BP BP Pulse Ox 08/18/19 02:12 36.5 C 89 18 145/90 H 95 08/17/19 23:30 94 H 18 142/93 H 95 08/17/19 21:13 91 H 18 130/68 95 08/17/19 20:24 93 08/17/19 19:20 36.6 C 111 H 20 170/92 H 96 Laboratory Results Laboratory Results WBC 11.71 K/uL (4.8-10.8) H 08/17/19 20:14 RBC 5.78 M/uL (4.7-6.1) 08/17/19 20:14 Hgb 18.8 g/dL (14.0-18.0) H 08/17/19 20:14 Hct 53.9 % (42-52) H 08/17/19 20:14 MCV 93.3 fL (80-100) 08/17/19 20:14 MCH 32.5 pg (25-34) 08/17/19 20:14 MCHC 34.9 g/dL (32-36) 08/17/19 20:14 RDW Std Deviation 47.8 fL (36.4-46.3) H 08/17/19 20:14 RDW Coeff of Nevin 14.3 % (11.5-14.5) 08/17/19 20:14 Plt Count 211 K/uL (130-400) 08/17/19 20:14 MPV 9.9 fL (7.4-10.4) 08/17/19 20:14 Immature Gran % (Auto) 0.2 % 08/17/19 20:14 Neut % (Auto) 74.2 % 08/17/19 20:14 Lymph % (Auto) 15.9 % 08/17/19 20:14 [place] % (Auto) 8.8 % 08/17/19 20:14 Eos % (Auto) 0.4 % 08/17/19 20:14 Baso % (Auto) 0.5 % 08/17/19 20:14 Immature Gran # (Auto) 0.02 K/uL (0.00-0.02) 08/17/19 20:14 Neut # (Auto) 8.69 K/uL (1.4-6.5) H 08/17/19 20:14 Lymph # (Auto) 1.86 K/uL (1.2-3.4) 08/17/19 20:14 [place] # (Auto) 1.03 K/uL (0.11-0.59) H 08/17/19 20:14 Eos # (Auto) 0.05 K/uL (0-0.5) 08/17/19 20:14 Baso # (Auto) 0.06 K/uL (0-0.2) 08/17/19 20:14 Sodium 138 mmol/L (136-145) 08/17/19 20:14 Potassium 3.9 mmol/L (3.5-5.1) 08/17/19 20:14 Chloride 102 mmol/L (98-107) 08/17/19 20:14 Carbon Dioxide 22 mmol/L (21-32) 08/17/19 20:14 Anion Gap 14.0 (3-11) H 08/17/19 20:14 BUN 19 mg/dl (7-18) H 08/17/19 20:14 Creatinine 0.94 mg/dl (0.6-1.4) 08/17/19 20:14 Est Cr Clr Drug Dosing 103.4 ml/min 08/17/19 20:14 Est GFR ( Amer) 94.8 08/17/19 20:14 Est GFR (Non-Af Amer) 81.8 08/17/19 20:14 BUN/Creatinine Ratio 20.1 (10-20) H 08/17/19 20:14 Glucose 215 mg/dl (70-99) H 08/17/19 20:14 POC Glucose 209 (70-99) H 08/17/19 20:08 Calcium 9.7 mg/dl (8.5-10.1) 08/17/19 20:14 Magnesium 1.9 mg/dl (1.8-2.4) 08/17/19 20:14 Magnesium Cancelled 08/17/19 20:14 Total Bilirubin 0.8 mg/dl (0.2-1) 08/17/19 20:14 AST 38 U/L (15-37) H 08/17/19 20:14 ALT 36 U/L (12-78) 08/17/19 20:14 Alkaline Phosphatase 117 U/L (45-117) 08/17/19 20:14 Troponin I 0.064 ng/ml (0-0.045) H* 08/17/19 20:14 Troponin I Cancelled 08/17/19 20:14 Total Protein 7.9 gm/dl (6.4-8.2) 08/17/19 20:14 Albumin 3.7 gm/dl (3.4-5.0) 08/17/19 20:14 Globulin 4.2 gm/dl (2.5-4.0) H 08/17/19 20:14 Albumin/Globulin Ratio 0.9 (0.9-2) 08/17/19 20:14 TSH 3.040 uIu/ml (0.300-4.500) 08/17/19 20:14 Urine Color Yellow 08/17/19 23:24 Urine Appearance Clear (Clear) 08/17/19 23:24 Urine pH 5.0 (4.5-7.5) 08/17/19 23:24 Ur Specific [place] 1.042 (1.000-1.030) H 08/17/19 23:24 Urine Protein Negative (Negative) 08/17/19 23:24 Urine Glucose (UA) 3+ (Negative) H 08/17/19 23:24 Urine Ketones 3+ (Negative) H 08/17/19 23:24 Urine Blood Negative (Negative) 08/17/19 23:24 Urine Nitrite Negative (Negative) 08/17/19 23:24 Urine Bilirubin Negative (Negative) 08/17/19 23:24 Urine Urobilinogen Negative (Negative) 08/17/19 23:24 Ur Leukocyte Esterase Negative (Negative) 08/17/19 23:24 Code Status & VTE Plan VTE Prophylaxis Plan VTE Prophylaxis will be ordered: Yes PG Care Time/CCT Total # of Minutes Spent Total Time Spent: 55 Total Time Spent with Patient: Total time spent is greater than 50% in coordination of care (as documented) at patient's floor/unit and/or counseling patient:
[2019-08-18] MEDS ORDERED: GADOBUTROL 65ML VIAL IV PRN (04:52)
[2019-08-18] MEDS: HEPARIN SOD 5,000 UNIT/0.5 ML VIAL SQ SCH ×2 (05:04→14:45)
[2019-08-18 05:43] LABS: Hematocrit (blood only) 48.2 % (42-52); Hemoglobin 16.7 g/dL (14.0-18.0); Mean Corpuscular Hemoglobin 32.3 pg (25-34); Mean Corpuscular Hgb Conc 34.6 g/dL (32-36); Mean Corpuscular Volume 93.2 fL (80-100); Mean Platelet Volume 9.7 fL (7.4-10.4); Platelet Count 187 K/uL (130-400); RDW Coefficient of Variation 14.1 % (11.5-14.5); RDW Standard Deviation 47.8 fL (36.4-46.3); Red Blood Count 5.17 M/uL (4.7-6.1); White Blood Count 9.04 K/uL (4.8-10.8)
[2019-08-18 06:20] LABS: BUN Creatinine Ratio 21.8 (10-20); Bilirubin Direct 0.2 mg/dl (0-0.2); Calcium 8.4 mg/dl (8.5-10.1); Creatinine Clr Calc Pharmacy 116.6 ml/min; Est GFR (African American) 102.8; Est GFR (Non-African American) 88.7; Potassium 3.9 mmol/L (3.5-5.1)
[2019-08-18 06:26] LABS: Albumin Globulin Ratio 0.8 (0.9-2); Bilirubin,Total 0.9 mg/dl (0.2-1); Globulin 3.7 gm/dl (2.5-4.0); Total Protein 6.7 gm/dl (6.4-8.2); Troponin I 0.063 ng/ml (0-0.045)
--- NOTE | 2019-08-18 07:34 | Magnetic Resonance Report ---
MR ANGIOGRAPHY OF THE [place] OF [place] NO CONTRAST CLINICAL HISTORY: dizziness, transient memory loss COMPARISON STUDY: None. A 3-D [id number] MR angiographic sequence of the [place] was performed. Both the source and projection images were reviewed. There is no evidence of major intracranial branch occlusion. There is minimal nonhemodynamically sign ificant narrowing of the distal basilar artery. There are no lesions suspicious for aneurysm. IMPRESSION: 1. Minimal nonhemodynamically significant narrowing of the distal basilar artery. 2. No evidence of major intracranial branch occlusion 3. No evidence of aneurysm Electronically signed by: Ugo Ibrahim M.D. 08/18/2019 7:33 AM
--- NOTE | 2019-08-18 07:59 | Magnetic Resonance Report ---
Brain MRI WITHOUT CONTRAST HISTORY: transient dizziness and memory loss. TECHNIQUE: Multiplanar multisequence MRI of the brain was performed without the use of contrast. COMPARISON STUDY: Head CT 08/17/2019. FINDINGS: There is no mass, hematoma, midline shift, or acute infarct. The paranasal sinuses are rosalva r. The mastoid air cells are clear. The ventricles and sulci demonstrate mild age-related involutiona l changes. Scattered foci of T2 hyperintensity seen within the periventricular and subcortical white matter are nonspecific but suggestive of mild microvascular ischemic changes. The major vascular flow voids at the skull base are well-maintained. IMPRESSION: No acute intracranial abnormality. Scattered foci of T2 hyperintensity seen within the periventricula r and subcortical white matter are nonspecific but favor mild microvascular ischemic change. Electronically signed by: Hima Razo M.D. 08/18/2019 7:58 AM
[2019-08-18] MEDS: GABAPENTIN 600 MG TAB PO SCH ×2 (08:22→14:54)
[2019-08-18] MEDS: INSULIN ASPART 100 UNITS/ML 3 ML PEN SC SCH ×3 (08:24→17:34)
--- NOTE | 2019-08-18 08:42 | Magnetic Resonance Report ---
MR ANGIOGRAM OF THE NECK COMBO CLINICAL HISTORY: Dizziness. Transient memory loss. COMPARISON STUDY: No priors.. TECHNIQUE: Axial 3-D [id number] MR angiography of the neck is performed. Subsequently, following the IV administration of 13.8 cc of Gadavist. Coronal MR angiogram of the neck was performed to brandan borate the findings. 3-D reformats are created and assessed. All measurements were calculated based o n NASCET criteria. FINDINGS: Visualized portions of the thoracic aorta are normal in caliber. The aortic arch demonstrat es standard 3-vessel anatomy. The subclavian arteries are widely patent bilaterally. The right common carotid artery is widely patent, as are the right internal and external carotid arteries. The left c ommon carotid artery is widely patent, as are the left internal and external carotid arteries. There is less than 50% luminal narrowing of the proximal left internal carotid artery. The vertebral arteri es are widely patent. The vertebral arteries are codominant. The visualized intracranial vessels at t he skull base appear patent. IMPRESSION: Unremarkable MR angiogram of the neck. Electronically signed by: Alfonzo Moon M.D. 08/18/2019 8:40 AM
[2019-08-18] MEDS ORDERED: FINASTERIDE 5 MG TAB PO SCH (09:00)
[2019-08-18] MEDS ORDERED: ASPIRIN 81 MG ECTAB PO SCH (09:00)
[2019-08-18] MEDS ORDERED: FLUOXETINE HCL 20 MG CAP PO SCH (09:00)
[2019-08-18 16:10] VITALS: TEMP 98.2; O2SAT 94
[2019-08-18 18:16] VITALS: BP 159/99; PULSE 78
--- NOTE | 2019-08-18 19:22 | Discharge Summary ---
Date of Service August 18, 2019 Principal Diagnosis Altered mental status (see below) Discharge Exam General he is awake alert oriented, pleasant no distress. HEENT normocephalic atraumatic mucous membranes moist. Breathing is unlabored no accessory muscle use good effort. Skin shows no rashes no pallor or icterus. Neuro shows cranial nerves II through XII be grossly intact gross motor and sensory are intact. Mental status intact with good recent and remote recall. Discharge Data Allergies Allergy/AdvReac Type Severity Reaction Status Date / Time No Known Allergies Allergy Verified 08/17/19 23:25 Consultations 08/18/19 00:06 ED Decision to Admit Stat Ordered Studies 08/17/19 20:30 CT head/brain wo con Stat 08/18/19 02:11 MR angio neck Routineread as unremarkable, there was a less than 50% luminal narrowing of the proximal left internal carotid vertebral arteries widely patent left common right common and right internal carotid arteries patent MR angio head Routineno hemodynamically significant stenoses noted MR brain wo con Routinescattered foci of hyperintensity seen in the periventricular and subcortical white matter nonspecific favoring mild microvascular ischemic changes, but no mass hematoma midline shift or acute infarct Echocardiogramgrossly normal LV size with mildly reduced systolic function, estimated EF 40 to 50%, no significant LVH, hypokinesis of the inferior lateral and base to mid inferior wall, probable akinesis of the distal inferior septum, technically difficult study but seems to be consistent with prior echocardiogram obtained here in September 2017 Mildly abnormal troponin with a peak level of 0.064 Hospital Course (1) Altered mental status: His symptoms were not characteristic of a TIA, and his work-up was not consistent with findings suggesting his symptoms were caused by cerebrovascular disease. Rather his symptoms seem to be a nondescript change in mental status of which he was aware during the entire time. The main differential on this seems to have been glycemic control issues (where sugars higher or lower than he is normally used to could have easily been causative) or related to stress response (while he did not go into specifics, he noted that he has been under more stress and his PTSD has not been where he needs it to me lately) -We did extensive discussions on following his sugars closely, following after prolonged fasting to see how often he has lows (checking in the morning or checking if there is a long interval between meals) and also checking in 1 to 2- hour after he eats type a range of time to look for high sugars that he might be missing. He follows closely with the [place] glycemic pharmacist, and we discussed that bringing the sugar readings to his clinical pharmacist should help in managing the sugars once high versus low versus both his unearthed. -We discussed following closely with [place], who he notes is been quite helpful, and the possibility that his event was stress related. --We discussed that most likely his cause falls within 1 of the above to noted differential diagnoses, and that managing both does not cause him harm, and will at the very least give him benefit of having the baseline disease is under better control as well. (2) Elevated troponin: Incidentally found, does not seem to relate to any of his presenting complaints. Further he denies any chest pain, dyspnea, dyspnea on exertion, or new exercise intolerance. An echocardiogram was checked, showed old wall motion abnormalities that appear to be consistent from about 2 years ago. He notes having had a left heart cath about 6 years ago that he was told was clean. We discussed that given that he does not have any anginal symptoms or worrisome symptoms of unstable angina, this can be followed through as an outpatient, and that the next steps would be reviewing his last cath in light of her current echocardiogram findings with his PCP. If the cath did not show blockages that would account for his current wall motion abnormalities, then a new cath should be considered, if the old cath showed coronary disease consistent with what we are seeing, then it is likely what he has is "damage already done" and ongoing med management and optimizing his cardiac risk factors would be the best plan. Certainly should he start to develop symptoms stress testing could be considered as well. We discussed smoke cessation and better glycemic control. 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 Jay and Dr. Clifton on SaturdayAugust 24 at 12:50 pm. *If you need to change this appointment, call the office at [phone].) Diet: Carb Consistent or DM2 Addtl Attending Provider Instructions: Altered mental status The symptoms that you experienced yesterday fortunately do not resemble a stroke or TIA (mini-stroke). The head MRI and neck MRA also do not show evidence of a stroke. The best explanation for the altered mental status you experiences is likely either: 1. Your blood sugar may have been either running too high or too low, and this could cause altered mental status 2. You may have been experiencing symptoms related to recent stress and/or your PTSD. Diabetes Blood sugars that are either too high or too low can cause changes in mental status, as well as put you at risk for a number of other medical problems. The first step would be for you to get a good idea of how your sugars run so that you can work with your PCP/pharmacist to make any adjustments to medications. We recommend that your check your sugars both 1-2 hours after a meal, as well as check after 6 hours of not eating. This will be critical for making sure your diabetes is well controlled. PTSD/stress The episode of altered mental status that you experienced may or may not have been related to your PTSD or increased stressors. Whether or not this episode was related to PTDS/stress, following-up with [place] psychiatrist [place] would be beneficial, since you have expressed to us that this has been a challenging year. You expressed to us that you have a good relationship with your psychiatrist [place] and will call him after hospital discharge to schedule an appointment, with an anticipated appointment in ~10 days. Echo findings As we discussed, the echo preformed during this hospital stay showed abnormalities of the inferior wall of your heart. This finding appears to be unchanged from an echo completed in 2017. This suggests that you may have had a silent heart attack in the past, and that this is not a new emergency situation. You recall that a catheterization was preformed ~6 years ago in [place], but there was not intervention preformed. This suggests that either you had a blockage in a coronary artery at that time that did not require intervention, or that you did not have any blockages in your coronary arteries at that time and do now. The next step would be to discuss this with your PCP to review the findings from this previous catheterization. If it was normal, another catheterization is recommended. If coronary artery blockages were found on the previous catheterization, we recommend discussing optimal medical management with your PCP Smoke cessation We recommend that you work to quit smoking. Smoking increases your risk for many diseases, including stroke and heart attack. Quitting smoking is one of the number one changes you can make to increase the quality and length of your life. If you need help quitting, talk to your PCP for strategies or potential medication aids. Exercise We recommend that you aim to exercise every day for 30 minutes. Try to build up to 30 minutes on your stationary bike (or other preferred for of exercise) by the end of October. Incorporating regular exercise is protective against illness, like heart attack and stroke, and increased the quality and length of your life. Pending Studies at Discharge: No Stand-Alone Forms: My [facility] Medications and DC Order Prescriptions: Continued silver sulfadiazine [Silvadene] 1 % cream 1 appln TOP BID Qty: 25 RF: 0 multivitamin Tablet 1 tab PO QAM RF: 0 terazosin 5 mg Capsule 5 mg PO HS RF: 0 Lantus U-100 Insulin 100 unit/mL Solution 40 unit SUBCUT HS RF: 0 aspirin [Aspir-81] 81 mg Tablet,Delayed Release (Dr/Ec) 81 mg PO QAM RF: 0 fluoxetine 20 mg Tablet 20 mg PO QAM RF: 0 metformin 1,000 mg Tablet 1,000 mg PO BID RF: 0 finasteride 5 mg Tablet 5 mg PO QAM RF: 0 trazodone 50 mg Tablet 100 mg PO HS RF: 0 losartan 25 mg Tablet 25 mg PO QPM RF: 0 gabapentin 600 mg Tablet 600 mg PO TID RF: 0 Discharge Orders: Discharge Order (Routine); Ordered 08/18/19 Ordered By: Sylvain Payne Admission Data Admit Date/Time: 08/18/19 00:52 Attending Provider: Sylvain Payne Admit Provider: Jorge Ng Primary Care Provider: Daquan Jay Other Providers: Jorge Ng Other Interventions: Discharge Summary Assessment (RN) Last Done: 08/18/19 18:14
[2019-08-18] MEDS ORDERED: LOSARTAN POTASSIUM 25 MG TAB PO SCH (21:00)
[2019-08-18] MEDS ORDERED: INSULIN GLARGINE SOLOSTAR 100 UNITS/ML 3 ML PEN SC SCH (21:00)
[2019-08-18] MEDS ORDERED: TRAZODONE HCL 50 MG TAB PO SCH (21:00)
[2019-08-18] MEDS ORDERED: TERAZOSIN HCL 5 MG CAP PO SCH (21:00)
== END 2019-08-18 19:00 | disposition home or self-care (01) ==
LOC: 2N 19:04 → ED 19:04 → SUATTDRO 08-18 00:52 → 2N 08-18 01:28